=== PATIENT | female | born 1945 | race African-American/Black ===

== ENCOUNTER 2017-05-13 15:35 | Inpatient (IN) | payer OTHER ==
--- NOTE | 2017-05-13 16:11 | PDOC ---
History of Present Illness - General Chief Complaint: Lightheaded Stated Complaint: LIGHTHEADED Time Seen by Provider: 05/13/17 16:06 History Source: Patient, Family (Granddaughter) Exam Limitations: No Limitations - History of Present Illness Initial Comments: 05/13/17 16:08 Patient is a 71 year old female with history of poorly controlled DM2 and HTN presenting with cc of itching of feet and external vagina for three days. Patient states she was seen by her PCP today for this complaint but was unable to get a prescription he sent to her pharmacy so she came into the ED because the itching was unbearable. Endorses headache, blurry vision, sore throat, loss of appetite and increased urination that has been getting worse for the last three days since she since she forgot to take her Levemir. The puritis is limited to the bottoms of her feet and her external vagina, primarily around the labia majora. Denies fever, chills, shortness of breath, chest pain, abdominal pain, nausea, vomiting, diarrhea and constipation. Denies any rashes or bruises. Patient's granddaughter states that the patient was more sleepy than normal and appeared slightly confused. Patient has a recent history of falls that is being worked up by her PCP and was last seen by her court magistrate in August or September. Patient denies any falls in the last few days. Patient recently changed her PCP to Sarath Talley ([phone]) GI: Dr. Alvarez Past History - Past Medical History Allergies/Adverse Reactions: Allergies Allergy/AdvReac Type Severity Reaction Status Date / Time sulfamethoxazole Allergy Verified 05/13/17 15:37 [From Bactrim] trimethoprim [From Bactrim] Allergy Verified 05/13/17 15:37 Home Medications: Ambulatory Orders Fenofibrate Nanocrystallized [Fenofibrate] 145 mg PO DAILY 05/08/14 Folic Acid/Multivit-Min/Lutein [Centrum Silver Chewable Tablet] 1 tab PO DAILY 05/08/14 Glipizide 10 mg PO DAILY 05/08/14 Insulin (Levemir) [Levemir Flexpen -] 10 units SQ HS 05/08/14 Linagliptin [Tradjenta] 5 mg PO DAILY 05/08/14 Lipase/Protease/Amylase [John Figueroa 24,000 Units Capsule] 1 cap PO TID 05/08/14 Metoprolol Succinate [Toprol XL -] 25 mg PO DAILY 05/08/14 Omeprazole [Prilosec] 40 mg PO DAILY 05/08/14 Pregabalin [Lyrica -] 50 mg PO DAILY 05/08/14 Raloxifene HCl 60 mg PO DAILY 05/08/14 Rosuvastatin Calcium [Crestor] 5 mg PO HS 05/08/14 Quinapril HCl [Accupril -] 10 mg PO DAILY #30 tablet 05/10/14 Anemia: Yes Asthma: No Cancer: No Cardiac Disorders: Yes CVA: No COPD: No CHF: No Dementia: No Diabetes: Yes GI Disorders: Yes (pancreatitis) Disorders: No HTN: Yes Hypercholesterolemia: Yes Liver Disease: No Seizures: No Thyroid Disease: No - Surgical History Abdominal Surgery: No Appendectomy: No Cardiac Surgery: No Cholecystectomy: No Lung Surgery: No Neurologic Surgery: No Orthopedic Surgery: No - Immunization History Immunization Up to Date: Yes - Suicide/Smoking/Psychosocial Hx Smoking History: Current every day smoker Number of Cigarettes Smoked Daily: 5 Information on smoking cessation initiated: No 'Breaking Loose' booklet given: 05/08/14 Hx Alcohol Use: No Drug/Substance Use Hx: No Substance Use Type: None Hx Substance Use Treatment: No Review of Systems - Review of Systems Able to Perform ROS?: Yes Comments:: 05/13/17 18:59 GEN: Denies fever, chills, recent illness HEENTM: Endorses sore throat, changes in vision; Denies changes in hearing Respiratory: Endorses Cough; Denies Shortness of Breath, difficulty breathing Cardiac: Denies Chest Pain, Syncope ABD/GI: Denies Abdominal Pain, Nausea, Vomiting, Diarrhea, Constipation : Endorses increased frequency of urination, vaginal itching; Denies Dysuria, Burning on urination Musculoskeletal: Endorses itchy feet; Denies muscle or joint pain Integumentary: Denies diaphoresis, rashes, bruises Neurological: Endorses increased sleepiness, headache, dizziness; Denies weakness All Other Systems Reviewed and Negative Is the patient limited Divehi proficient: No *Physical Exam - Vital Signs Last Vital Signs Temp Pulse Resp BP Pulse Ox 98.3 F 94 H 20 198/99 99 05/13/17 15:38 05/13/17 15:38 05/13/17 15:38 05/13/17 15:38 05/13/17 15:38 - Physical Exam Comments: 05/13/17 19:06 GENERAL: Nourished, Appropriately dressed, AAOx3, NAD HEAD: NCAT EYES: PERRLA, EOMI, sclera anicteric, conjunctiva clear ENT: hearing grossly normal, nares patent, no congestion, dry oral mucosa NECK: Supple, Normal ROM, no LAD, JVD, or masses RESP: Speaking in full sentences, supraclavicular retractions and mild increased work of breathing, no respiratory distress, lungs CTAB HEART: RRR, normal S1-S2, no MRG ABDOMEN: Soft, NTND, no guarding, no rebound. EXTERNAL VAGINAL EXAM: grossly wnl, no erythema, no edema, no signs of infection EXTREMITIES: Normal inspection, Normal ROM, no edema NEUROLOGICAL: CN II-XII grossly intact. Normal speech, normal gait, no focal sensorimotor deficits SKIN: Warm, Dry, normal turgor, no rashes or lesions noted. ED Treatment Course - LABORATORY CBC & Chemistry Diagram: 05/15/17 06:00 05/15/17 06:00 Medical Decision Making - Medical Decision Making 05/13/17 18:06 71 year old female with history of poorly controlled diabetes and poor medical compliance presenting with vaginal itching, itchy feet and increased urination. Patient is neurologically intact and not in respiratory distress. She appears dehydrated with no complaints of abdominal pain, nausea or vomiting. ddx includes but is not limited to Hyperosmolar hyperglycemic state, DKA, vaginitis, neuropathy Start fluids Initial workup with CBC, CMP, UA Serum acetone Monitor and reassess CBC WBC 7.2 K/mm3 (4.0-10.0) 05/13/17 16:48 RBC 3.91 M/mm3 (3.60-5.2) 05/13/17 16:48 Hgb 11.1 GM/dL (10.7-15.3) 05/13/17 16:48 Hct 36.5 % (32.4-45.2) 05/13/17 16:48 MCV 93.4 fl (80-96) 05/13/17 16:48 MCH 28.5 pg (25.7-33.7) 05/13/17 16:48 MCHC 30.6 g/dl (32.0-36.0) L 05/13/17 16:48 RDW 13.9 % (11.6-15.6) 05/13/17 16:48 Plt Count 145 K/MM3 (134-434) D 05/13/17 16:48 MPV 11.6 fl (7.5-11.1) H D 05/13/17 16:48 Neutrophils % 76.2 % (42.8-82.8) D 05/13/17 16:48 Lymphocytes % 14.9 % (8-40) D 05/13/17 16:48 Monocytes % 8.2 % (3.8-10.2) 05/13/17 16:48 Eosinophils % 0.3 % (0-4.5) 05/13/17 16:48 Basophils % 0.4 % (0-2.0) 05/13/17 16:48 wnl CMP Sodium 116 mmol/L (136-145) L* D 05/13/17 16:48 Potassium 5.0 mmol/L (3.5-5.1) 05/13/17 16:48 Chloride 84 mmol/L (98-107) L D 05/13/17 16:48 Carbon Dioxide 18 mmol/L (21-32) L D 05/13/17 16:48 Anion Gap 14 (8-16) 05/13/17 16:48 BUN 34 mg/dL (7-18) H D 05/13/17 16:48 Creatinine 3.0 mg/dL (0.55-1.02) H D 05/13/17 16:48 Creat Clearance w eGFR 15.38 (>60) 05/13/17 16:48 Random Glucose 1097 mg/dL (74-106) H* 05/13/17 16:48 Calcium 7.8 mg/dL (8.5-10.1) L 05/13/17 16:48 Total Bilirubin 0.7 mg/dL (0.2-1.0) D 05/13/17 16:48 AST 9 U/L (15-37) L D 05/13/17 16:48 ALT 20 U/L (12-78) 05/13/17 16:48 Alkaline Phosphatase 295 U/L (45-117) H D 05/13/17 16:48 Total Protein 7.4 g/dl (6.4-8.2) 05/13/17 16:48 Albumin 3.8 g/dl (3.4-5.0) 05/13/17 16:48 Significant hyponatremia. (132 when corrected for hyperglycemia) Significant hyperglycemia with moderate reduction in bicarb, w/o anion gap, more consistent with HHS than DKA Elevation in BUN/CR consistent with a HHS 05/13/17 18:22 Urine Test Results Urine Color Straw 05/13/17 16:48 Urine Appearance Clear 05/13/17 16:48 Urine pH 6.0 (5.0-8.0) 05/13/17 16:48 Urine Protein Negative (NEGATIVE) 05/13/17 16:48 Urine Glucose (UA) 3+ (NEGATIVE) H 05/13/17 16:48 Urine Ketones Negative (NEGATIVE) 05/13/17 16:48 Urine Blood 1+ (NEGATIVE) H 05/13/17 16:48 Urine Nitrite Negative (NEGATIVE) 05/13/17 16:48 Urine Bilirubin Negative (NEGATIVE) 05/13/17 16:48 Ketone negative high glucose consistent with level of hyperglycemia not concernign for UTI 05/13/17 18:[address] Woodson who accepted admission and requesting ICU d/t levels of sodium and glucose Spoke with Dr. Salazar who agreed with admission to ICU, requested blood gas *DC/Admit/Observation/Transfer Diagnosis at time of Disposition: Dehydration with hyponatremia, Hyperglycemia, Hyperosmolality syndrome, TRUE ( acute kidney injury) - Discharge Dispostion Admit: Yes - Referrals
[2017-05-13] MEDS ORDERED: SODIUM CHLORIDE 0.9% 1000 ML INFUS.BAG IV ONE (16:33)
[2017-05-13 16:57] LABS: BASOPHIL 0.4 % (0-2.0); EOSINOPHIL 0.3 % (0-4.5); MCH 28.5 pg (25.7-33.7)
[2017-05-13 16:59] LABS: URINE APPEARANCE CLEAR; URINE BILIRUBIN NEGATIVE (NEGATIVE); URINE BLOOD 1+ (NEGATIVE); URINE COLOR STRAW; URINE GLUCOSE (UA) 3+ (NEGATIVE); URINE KETONE NEGATIVE (NEGATIVE); URINE NITRITE NEGATIVE (NEGATIVE); URINE PROTEIN NEGATIVE (NEGATIVE); URINE UROBILINOGEN NEGATIVE mg/dL (0.2-1.0)
[2017-05-13 17:09] LABS: MCHC 30.6 g/dl (32.0-36.0); MEAN CELL VOLUME 93.4 fl (80-96); MEAN PLT VOLUME 11.6 fl (7.5-11.1); NEUTROPHILS 76.2 % (42.8-82.8); PLATELET COUNT 145 K/MM3 (134-434); RDW 13.9 % (11.6-15.6); WHITE BLOOD COUNT 7.2 K/mm3 (4.0-10.0)
[2017-05-13 17:11] LABS: URINE BACTERIA FEW /hpf (NONE SEEN); URINE MUCUS RARE; URINE RBC 4 /hpf (0-3); URINE WBC 20 /hpf (3-5)
[2017-05-13 17:19] LABS: ALBUMIN 3.8 g/dl (3.4-5.0); ANION GAP 14 (8-16); CALCIUM 7.8 mg/dL (8.5-10.1); CO2 18 mmol/L (21-32); SGOT/AST 9 U/L (15-37); SGPT/ALT 20 U/L (12-78)
[2017-05-13 17:20] LABS: ALK PHOS 295 U/L (45-117); BILIRUBIN,TOTAL 0.7 mg/dL (0.2-1.0); TOT PROT 7.4 g/dl (6.4-8.2)
[2017-05-13 17:37] LABS: GLUCOSE,RANDOM 1097 mg/dL (74-106)
[2017-05-13] MEDS ORDERED: SODIUM CHLORIDE 1,000 ML IV STA ×2 (17:39→19:43)
[2017-05-13] MEDS ORDERED: ACETAMINOPHEN 325 MG TABLET (FP) PO ONE (18:31)
--- NOTE | 2017-05-13 18:38 | PDOC ---
Attending Attestation - Resident Resident Name: Freddy Loya - ED Attending Attestation I have performed the following: I have examined & evaluated the patient, The case was reviewed & discussed with the resident, I agree w/resident's findings & plan, Exceptions are as noted - HPI HPI: 05/13/17 20:22 71 yo female with IDDM has c/o itching feet,found to have glucose>1000 - Physicial Exam PE: 05/13/17 20:22 thin alert and conversant 71 yo female p/w c/o itchy feet and hyperglycemia.Denies vomiting,sob,fever or chills HEENT wnl lungs cta b/l cvs [id number] abd soft nontender extremities no edema neuro axox3,ambulatory - Medical Decision Making 05/13/17 18:37 admission for hyperosmolar hyperhlycemia/ICU/ Dr Woodson for service case tonight/Dr Marie Caraballo ICU 05/13/17 20:25 pt afmitted ti ICU,nonketotic hyperosmolar hyperglycemia
[2017-05-13] MEDS ORDERED: ACETAMINOPHEN 325 MG TABLET (FP) ONE (19:10)
--- NOTE | 2017-05-13 19:12 | PDOC ---
*Physical Exam - Vital Signs Last Vital Signs Temp Pulse Resp BP Pulse Ox 98.3 F 94 H 20 198/99 99 05/13/17 15:38 05/13/17 15:38 05/13/17 15:38 05/13/17 15:38 05/13/17 15:38 ED Treatment Course - LABORATORY CBC & Chemistry Diagram: 05/13/17 16:48 05/13/17 16:48 - ADDITIONAL ORDERS Additional order review: Laboratory Results 05/13/17 05/13/17 05/13/17 17:58 16:48 16:48 Sodium 116 L* D Potassium 5.0 Chloride 84 L D Carbon Dioxide 18 L D Anion Gap 14 BUN 34 H D Creatinine 3.0 H D Creat Clearance w eGFR 15.38 Random Glucose 1097 H* Calcium 7.8 L Total Bilirubin 0.7 D AST 9 L D ALT 20 Alkaline Phosphatase 295 H D Total Protein 7.4 Albumin 3.8 Urine Color Straw Urine Appearance Clear Urine pH 6.0 Urine Protein Negative Urine Glucose (UA) 3+ H Urine Ketones Negative Urine Blood 1+ H Urine Nitrite Negative Urine Bilirubin Negative Urine Urobilinogen Negative Urine RBC 4 Urine WBC 20 Ur Epithelial Cells Rare Urine Bacteria Few Urine Mucus Rare Acetone, Qual Positive,trace 05/13/17 16:48 RBC 3.91 MCV 93.4 MCHC 30.6 L RDW 13.9 MPV 11.6 H D Neutrophils % 76.2 D Lymphocytes % 14.9 D Monocytes % 8.2 Eosinophils % 0.3 Basophils % 0.4 - Medications Given in the ED: ED Medications Discontinued Medications Generic Name Dose Route Start Last Admin Trade Name Freq PRN Reason Stop Dose Admin Sodium Chloride 1,000 mls @ 1,000 mls/hr 05/13/17 17:39 05/13/17 17:57 Normal Saline - IV 05/13/17 18:38 1,000 mls/hr ASDIR STA Administration Sodium Chloride 500 ml 05/13/17 16:33 05/13/17 16:33 Normal Saline - IV 05/13/17 16:34 500 ml NOW ONE Administration Progress Note - Progress Note Progress Note: Patient presents with HHS admitted to ICU. 1.5 *DC/Admit/Observation/Transfer Diagnosis at time of Disposition: Dehydration with hyponatremia, Hyperglycemia, Hyperosmolality syndrome, TRUE ( acute kidney injury) - Referrals Referrals: Sarath Winkler PA [Primary Care Provider] - - Patient Instructions - Post Discharge Activity
[2017-05-13 19:39] LABS: VENOUS BLOOD GAS HCO3 16.5 meq/L (19-25)
[2017-05-13 19:40] LABS: VENOUS PH 7.28 (7.32-7.42)
[2017-05-13] MEDS ORDERED: diphenhydrAMINE HCL 25 MG CAPSULE (FP) PO ONE ×3 (19:42→22:16)
[2017-05-13 20:33] LABS: ANION GAP 13 (8-16); CALCIUM 8.2 mg/dL (8.5-10.1); CO2 16 mmol/L (21-32); CREATININE 2.5 mg/dL (0.55-1.02)
[2017-05-13 20:45] LABS: GLUCOSE,RANDOM 862 mg/dL (74-106)
--- NOTE | 2017-05-13 20:50 | HP ---
Admitting History and Physical - Admission History of Present Illness: 71 year old female with history of DM2 and HTN presenting with cc of itching of feet and external vagina for three days. Patient states she was seen by her PCP today for this complaint who sent a prescription to her pharmacy but was unable to get the prescription and came into the ED because the itching was unberable. Endorses headache, blurry vision, sore throat, loss of appetite and increased urination for the last three days. Denies fever, chills, shortness of breath, chest pain, abdominal pain, nausea, vomiting, diarrhea and constipation. - Past Medical History Cardiovascular: Yes: HTN, Hyperlipdemia. No: AFIB, Aneurysm, Aortic Insufficiency, Aortic Stenosis, CAD, CHF, Deep Vein Thrombosis, AR, Mitral Insufficiency, Mitral Stenosis, Murmur, Pulmonary Hypertension, Other Endocrine: Yes: Diabetes Mellitus. No: Story's Disease, [place]'s Disease, Diabetes Insipidus, Hyperparathyroidism, Hyperthyroidism, Hypothyroidism, Osteopenia, SIADH, Other - Smoking History Smoking history: Current every day smoker Aproximately how many cigarettes per day: 5 - Alcohol/Substance Use Hx Alcohol Use: No History of Substance Use: reports: None - Social History ADL: Independent Occupation: Retired History of Recent Travel: Yes ([place] ) Home Medications - Allergies Allergies/Adverse Reactions: Allergies Allergy/AdvReac Type Severity Reaction Status Date / Time sulfamethoxazole Allergy Verified 05/13/17 15:37 [From Bactrim] trimethoprim [From Bactrim] Allergy Verified 05/13/17 15:37 - Home Medications Home Medications: Ambulatory Orders Fenofibrate Nanocrystallized [Fenofibrate] 145 mg PO DAILY 05/08/14 Folic Acid/Multivit-Min/Lutein [Centrum Silver Chewable Tablet] 1 tab PO DAILY 05/08/14 Glipizide 10 mg PO DAILY 05/08/14 Insulin (Levemir) [Levemir Flexpen -] 10 units SQ HS 05/08/14 Linagliptin [Tradjenta] 5 mg PO DAILY 05/08/14 Lipase/Protease/Amylase [Creon Dr 24,000 Units Capsule] 1 cap PO TID 05/08/14 Metoprolol Succinate [Toprol XL -] 25 mg PO DAILY 05/08/14 Omeprazole [Prilosec] 40 mg PO DAILY 05/08/14 Pregabalin [Lyrica -] 50 mg PO DAILY 05/08/14 Raloxifene HCl 60 mg PO DAILY 05/08/14 Rosuvastatin Calcium [Crestor] 5 mg PO HS 05/08/14 Quinapril HCl [Accupril -] 10 mg PO DAILY #30 tablet 05/10/14 Family Disease History - Family Disease History Family Disease History: Other: Father (unknown ), Mother (vaginal cancer ) Review of Systems - Review of Systems Cardiovascular: denies: Chest Pain Respiratory: denies: SOB Gastrointestinal: denies: Abdominal Pain, Diarrhea, Vomiting Genitourinary: reports: Burning, Frequency Integumentary: reports: Pruritis Neurological: reports: Weakness Physical Examination Vital Signs: Vital Signs Temperature 98.3 F 05/13/17 15:38 Pulse Rate 94 H 05/13/17 15:38 Respiratory Rate 20 05/13/17 15:38 Blood Pressure 198/99 05/13/17 15:38 O2 Sat by Pulse Oximetry (%) 99 05/13/17 15:38 Cardiovascular: Yes: Regular Rate and Rhythm Respiratory: Yes: Regular, CTA Bilaterally Gastrointestinal: Yes: Normal Bowel Sounds, Soft. No: Tenderness Edema: No Neurological: Yes: Alert, Oriented Labs: CBC, BMP 05/13/17 20:06 Problem List - Problems (1) Diabetes mellitus Assessment/Plan: IVF INSULIN ENDO Code(s): E11.9 - TYPE 2 DIABETES MELLITUS WITHOUT COMPLICATIONS (2) HTN (hypertension) Assessment/Plan: MONITOR ON MEDS Code(s): I10 - ESSENTIAL (PRIMARY) HYPERTENSION (3) Hyperosmolarity due to secondary diabetes Assessment/Plan: ABOVE Code(s): E13.00 - OTH DIAB W HYPROSM W/O NONKET HYPRGLY-HYPROS COMA ([facility])
[2017-05-13 22:05] LABS: URINE LEUK ESTERASE 1+ (NEGATIVE)
[2017-05-13] MEDS ORDERED: INSULIN REGULAR HUMAN 100 UNITS/ML *VIAL ONE (22:10)
[2017-05-13] MEDS ORDERED: INSULIN REGULAR 100 UNITS in SODIUM CHLORIDE 99 ML IVPB SCH ×2 (22:15→23:43)
[2017-05-13] MEDS ORDERED: SODIUM CHLORIDE 1,000 ML IV SCH (22:30)
--- NOTE | 2017-05-13 22:37 | CONSULT ---
Consultation: REQUESTING PROVIDER: CONSULT REQUEST: We have been asked to medically evaluate this patient for (HSS management in ccu). HISTORY OF PRESENT ILLNESS: This is a 71 year old female with PMH of IDDM II (baseline AM sugars =120), HTN , and pancreatic insufficiency, who presented to the ED due to confusion and diffuse pruritus, was found to be hyperglycemic BG >1000; resuscitated with 2.5 L NS and xferred to CCU for further management. Patient states that she has a new BGM machine. Last read of AM glucose 120 was last friday, followed by a week of reads "BGM high". Patient did not report this reading to PCP. She denies recent change in diet, f/c, rhinorrhea, sore throat, n/v, cp, palpitations, loc. She reports polyuria x 1 w. patient states that she has had DM x 9 yrs and has been hospitalized for hyperglycemia at least 3 times in the past. REVIEW OF SYSTEMS: CONSTITUTIONAL: Absent: fever, chills, loss of appetite HEENT: Absent: rhinorrhea, nasal congestion, throat pain CARDIOVASCULAR: Absent: chest pain, syncope, palpitations, irregular heart rate, lightheadedness , peripheral edema RESPIRATORY: Absent: cough, shortness of breath, dyspnea with exertion GASTROINTESTINAL: Absent: abdominal pain, abdominal distension, nausea, vomiting, diarrhea, constipation GENITOURINARY: Absent: dysuria, flank pain MUSCULOSKELETAL: Absent: myalgia, arthralgia SKIN: Absent: rash, itching, pallor HEMATOLOGIC/IMMUNOLOGIC: Absent: easy bleeding, easy bruising ENDOCRINE: Absent: unexplained weight gain, unexplained weight loss, heat intolerance, cold intolerance NEUROLOGIC: Absent: headache, focal weakness or paresthesias PSYCHIATRIC: Absent: anxiety, depression PHYSICAL EXAMINATION Vital Signs - 24 hr 05/13/17 21:54 Temperature 98.4 F Pulse Rate [ 92 H Left Radial] Respiratory 18 Rate Blood Pressure 168/84 [Right Arm] O2 Sat by Pulse 98 Oximetry (%) GENERAL: Awake, alert, and fully oriented, in no acute distress. HEAD: Normal with no signs of trauma. EYES: Pupils equal, round and reactive to light, extraocular movements intact, sclera anicteric, conjunctiva clear. No lid lag. EARS, NOSE, THROAT: somewhat dry mucous membranes. NECK: supple without JVD LUNGS: Breath sounds equal, clear to auscultation bilaterally HEART: Regular rate and rhythm, normal S1 and S2 ABDOMEN: Soft, nontender, not distended, normoactive bowel sounds MUSCULOSKELETAL: No CVA tenderness. UPPER EXTREMITIES: 2+ pulses, warm, well-perfused. No peripheral edema. LOWER EXTREMITIES: 2+ pulses, warm, well-perfused. No calf tenderness. No peripheral edema. NEUROLOGICAL: Cranial nerves II-XII grossly intact. Normal speech. PSYCHIATRIC: Cooperative. Good eye contact. Appropriate mood and affect. SKIN: Warm, dry Laboratory Results - last 24 hr 05/13/17 05/13/17 19:20 20:06 VBG pH 7.28 L POC VBG pCO2 36.6 L POC VBG pO2 22.1 L Mixed VBG HCO3 16.5 L Sodium 126 L Potassium 5.0 Chloride 97 L D Carbon Dioxide 16 L Anion Gap 13 BUN 29 H Creatinine 2.5 H Random Glucose 862 H* D Calcium 8.2 L Active Medications Generic Name Dose Route Start Last Admin Trade Name Freq PRN Reason Stop Dose Admin Diphenhydramine HCl 25 mg 05/14/17 02:00 Benadryl - PO 05/14/17 02:01 ONCE ONE Insulin Human Regular 100 100 mls @ 4.53 mls/hr 05/13/17 22:15 05/13/17 22:30 units/ Sodium Chloride IVPB 4.53 mls/hr TITR MITCH Administration Protocol 0.1 UNITS/KG/HR Potassium Chloride/Sodium Chloride 1,000 mls @ 125 mls/hr 05/13/17 22:45 Ns+20 Meq Kcl - IV ASDIR MITCH ASSESSMENT/PLAN: HISTORY OF PRESENT ILLNESS: This is a 71 year old female with PMH of IDDM II (baseline AM sugars =120), HTN , and pancreatic insufficiency, who presented to the ED due to confusion and diffuse pruritus, was found to be hyperglycemic BG >1000; resuscitated with 2.5 L NS and xferred to CCU for further management. Neuro *Lethargy in setting of HSS resolved -aaox3 Pulm -stable CV *HTN -normotensive at this time, restart home meds when euvolemic -stable -replete K per protocol Endocrine *HSS hyperglycemia -BG >1000; Osmolallity 305 gap 14 -K 5 -resuscitated with 2.5 L NS; continue NS@ 125 20 KCL -monitor bmp -10 U insulin bolus; insulin gtt @0.1u/kg/hr -bgm q 1 h -endocrine consult -a1c FEN NS @ 125 20 Kcl monitor k, na npo Dispo: We will continue to follow the patient. Thank you for this consultative opportunity. Visit type - Emergency Visit Emergency Visit: Yes ED Registration Date: 05/13/17 Care time: The patient presented to the Emergency Department on the above date and was hospitalized for further evaluation of their emergent condition. - New Patient This patient is new to me today: Yes Date on this admission: 05/13/17 - Critical Care Critical Care patient: Yes Total Critical Care Time (in minutes): 35 Critical Care Statement: The care of this patient involved high complexity decision making to prevent further life threatening deterioration of the patient 's condition and/or to evaluate & treat vital organ system(s) failure or risk of failure.
[2017-05-13] MEDS ORDERED: FLU VACCINE QUAD 60 MCG/0.5 ML (MDV 17-18) IM ONE ×2 (22:52→23:15)
[2017-05-13] MEDS: SODIUM CHLORIDE 0.9%/KCL 1,000 ML IV SCH (22:54)
--- NOTE | 2017-05-13 23:17 | CONSULT ---
Consult Consult Specialty:: Pulm/CCM Reason for Consultation:: hyperglycemia, HHS - History of Present Illness Chief Complaint: itching History of Present Illness: This is a 71 yo HTN, IDDM who presented to ED for incessant itching and malaise found to have blood sugar 1097. Per patient she take levemir 10 units daily, no sliding scale, but has not been taking her insulin regularly over the last several weeks because her AM sugars had been in the 80s until approximately 1 week prior to admission he glucose was reading high. She recently changed MDs and has not been for follow up for months. At that time she noted increased thirst and urinary frequency. She also had intermittent headaches and itching: feet and external vagina. On day of admission she noted some MCKEON and unsteady gate c/b continued itching. In ED labs notable for Na: 116 (corrected: 138), BS : 1100, SCr: 3.0. U/A negative for ketones. Patient given NS x 2.5 liters and transferred to ICU. In ICU insulin drip started at 0.1 units/kg/hr. IV fluids given w/ potassium repletion. - History Source History Provided By: Patient, Medical Record Limitations to Obtaining History: No Limitations - Past Medical History Cardio/Vascular: Yes: HTN, Hyperlipdemia. No: AFIB, Aneurysm, Aortic Insufficiency, Aortic Stenosis, CAD, CHF, Deep Vein Thrombosis, [place], Mitral Insufficiency, Mitral Stenosis, Murmur, Pulmonary Hypertension, Other ...: No Endocrine: Yes: Diabetes Mellitus. No: [place]'s Disease, Ab[place]'s Disease, Diabetes Insipidus, Hyperparathyroidism, Hyperthyroidism, Hypothyroidism, Osteopenia, SIADH, Other - Alcohol/Substance Use Hx Alcohol Use: No History of Substance Use: reports: None - Smoking History Smoking history: Current every day smoker Aproximately how many cigarettes per day: 5 - Social History ADL: Independent Occupation: Retired History of Recent Travel: Yes ([place] ) Home Medications - Allergies Allergies/Adverse Reactions: Allergies Allergy/AdvReac Type Severity Reaction Status Date / Time sulfamethoxazole Allergy Verified 05/13/17 15:37 [From Bactrim] trimethoprim [From Bactrim] Allergy Verified 05/13/17 15:37 - Home Medications Home Medications: Ambulatory Orders Fenofibrate Nanocrystallized [Fenofibrate] 145 mg PO DAILY 05/08/14 Folic Acid/Multivit-Min/Lutein [Centrum Silver Chewable Tablet] 1 tab PO DAILY 05/08/14 Glipizide 10 mg PO DAILY 05/08/14 Insulin (Levemir) [Levemir Flexpen -] 10 units SQ HS 05/08/14 Linagliptin [Tradjenta] 5 mg PO DAILY 05/08/14 Lipase/Protease/Amylase [Creon Dr 24,000 Units Capsule] 1 cap PO TID 05/08/14 Metoprolol Succinate [Toprol XL -] 25 mg PO DAILY 05/08/14 Omeprazole [Prilosec] 40 mg PO DAILY 05/08/14 Pregabalin [Lyrica -] 50 mg PO DAILY 05/08/14 Raloxifene HCl 60 mg PO DAILY 05/08/14 Rosuvastatin Calcium [Crestor] 5 mg PO HS 05/08/14 Quinapril HCl [Accupril -] 10 mg PO DAILY #30 tablet 05/10/14 Family Disease History - Family Disease History Family Disease History: Other: Father (unknown ), Mother (vaginal cancer ) Review of Systems - Review of Systems Constitutional: reports: Lethargy, Malaise Genitourinary: reports: Frequency Neurological: reports: Headache, Unsteady Gait Endocrine: reports: Increased Thirst Physical Exam Vital Signs: Vital Signs Temperature 98.9 F 05/13/17 22:30 Pulse Rate 87 05/13/17 22:30 Respiratory Rate 14 05/13/17 22:30 Blood Pressure 144/85 05/13/17 22:30 O2 Sat by Pulse Oximetry (%) 99 05/13/17 22:30 Current Medications Diphenhydramine HCl (Benadryl -) 25 mg PO ONCE ONE Stop: 05/14/17 02:01 Insulin Human Regular 100 (units/ Sodium Chloride) 100 mls @ 4.53 mls/hr IVPB TITR MITCH; 0.1 UNITS/KG/HR PRN Reason: Protocol Last Admin: 05/13/17 22:30 Dose: 4.53 mls/hr Potassium Chloride/Sodium Chloride (Ns+20 Meq Kcl -) 1,000 mls @ 125 mls/hr IV ASDIR MITCH Last Admin: 05/13/17 22:54 Dose: 125 mls/hr Constitutional: Yes: Well Nourished, Calm Eyes: Yes: EOM Intact HENT: Yes: Normocephalic Neck: Yes: Trachea Midline Cardiovascular: Yes: Regular Rate and Rhythm Respiratory: Yes: CTA Bilaterally Gastrointestinal: Yes: Normal Bowel Sounds, Soft Edema: No Psychiatric: Yes: Alert, Oriented Labs: CBCD WBC 7.2 K/mm3 (4.0-10.0) 05/13/17 16:48 RBC 3.91 M/mm3 (3.60-5.2) 05/13/17 16:48 Hgb 11.1 GM/dL (10.7-15.3) 05/13/17 16:48 Hct 36.5 % (32.4-45.2) 05/13/17 16:48 MCV 93.4 fl (80-96) 05/13/17 16:48 MCHC 30.6 g/dl (32.0-36.0) L 05/13/17 16:48 RDW 13.9 % (11.6-15.6) 05/13/17 16:48 Plt Count 145 K/MM3 (134-434) D 05/13/17 16:48 MPV 11.6 fl (7.5-11.1) H D 05/13/17 16:48 CMP Sodium 126 mmol/L (136-145) L 05/13/17 20:06 Potassium 5.0 mmol/L (3.5-5.1) 05/13/17 20:06 Chloride 97 mmol/L (98-107) L D 05/13/17 20:06 Carbon Dioxide 16 mmol/L (21-32) L 05/13/17 20:06 Anion Gap 13 (8-16) 05/13/17 20:06 BUN 29 mg/dL (7-18) H 05/13/17 20:06 Creatinine 2.5 mg/dL (0.55-1.02) H 05/13/17 20:06 Creat Clearance w eGFR 15.38 (>60) 05/13/17 16:48 Random Glucose 862 mg/dL (74-106) H* D 05/13/17 20:06 Calcium 8.2 mg/dL (8.5-10.1) L 05/13/17 20:06 Total Bilirubin 0.7 mg/dL (0.2-1.0) D 05/13/17 16:48 AST 9 U/L (15-37) L D 05/13/17 16:48 ALT 20 U/L (12-78) 05/13/17 16:48 Alkaline Phosphatase 295 U/L (45-117) H D 05/13/17 16:48 Total Protein 7.4 g/dl (6.4-8.2) 05/13/17 16:48 Albumin 3.8 g/dl (3.4-5.0) 05/13/17 16:48 Imaging - Results Chest X-ray: Report Reviewed, Image Reviewed Problem List - Problems (1) TRUE (acute kidney injury) Code(s): N17.9 - ACUTE KIDNEY FAILURE, UNSPECIFIED (2) Hyperglycemia Code(s): R73.9 - HYPERGLYCEMIA, UNSPECIFIED (3) Hyperosmolality syndrome Code(s): E87.0 - HYPEROSMOLALITY AND HYPERNATREMIA (4) Diabetes mellitus Code(s): E11.9 - TYPE 2 DIABETES MELLITUS WITHOUT COMPLICATIONS (5) HTN (hypertension) Code(s): I10 - ESSENTIAL (PRIMARY) HYPERTENSION Assessment/Plan 71 yo woman IDDM p/w hyperosmolar hyperglycemic syndrome r/t medication noncompliance c/b TRUE 2/2 dehydration -Insulin drip 0.1units/kg/hr --if BG doesnt fall by 50-70 mg/dl in first hr double insulin infusion until BG drops by 50-70 mg/dl --goal B-200mg/dl until AG closes --if BG fall <70 mg/dl hold insulin x15m and bolus D50 IVP --restart insulin at half prior dose and notify prodiver -IV fluids 100-250ml/hr --corrected sodium >140 use d5 1/2NS --corrected sodium <140 use NS --add D5 once BG reaches 250 mg/dl -potassium replacement --K> 5.5mEq/l no replacement --K 4-5 mEq/l add KCl 20 mEq to each liter of IVF --K 3.5-3.9 mEq/l add KCL 20-40 mEq to each liter of IVF --K 3.1-3.4 mEq/l add KCL 40-60 mEq to each liter of IVF --K <3 mEq/l add KCL 40-80 mEq to each liter of IVF (call provider) -BMP q4hrs -transition to insulin sq in AM once BS improves -Endocrine consult for insulin management and education Jonathan ACNP Pulm/CCM CCT: 35m
[2017-05-13] MEDS ORDERED: INSULIN REGULAR HUMAN 100 UNITS/ML *VIAL IVPUSH ONE (23:42)
[2017-05-14 00:13] LABS: ANION GAP 12 (8-16); CALCIUM 7.7 mg/dL (8.5-10.1); CO2 15 mmol/L (21-32); CREATININE 2.4 mg/dL (0.55-1.02); MAGNESIUM 1.8 mg/dL (1.8-2.4); PHOSPHOROUS 1.3 mg/dL (2.5-4.9)
[2017-05-14 00:21] LABS: GLUCOSE,RANDOM 551 mg/dL (74-106)
[2017-05-14] MEDS ORDERED: diphenhydrAMINE HCL 25 MG CAPSULE (FP) PO ONE (02:00)
[2017-05-14 06:18] LABS: MCH 28.8 pg (25.7-33.7); MCHC 33.2 g/dl (32.0-36.0); MEAN CELL VOLUME 86.9 fl (80-96); MEAN PLT VOLUME 10.5 fl (7.5-11.1); PLATELET COUNT 134 K/MM3 (134-434); WHITE BLOOD COUNT 9.7 K/mm3 (4.0-10.0)
[2017-05-14 06:54] LABS: ALK PHOS 209 U/L (45-117); ANION GAP 11 (8-16); BILIRUBIN,TOTAL 0.5 mg/dL (0.2-1.0); CALCIUM 8.5 mg/dL (8.5-10.1); CO2 17 mmol/L (21-32); GLUCOSE,RANDOM 170 mg/dL (74-106); MAGNESIUM 1.9 mg/dL (1.8-2.4); SGOT/AST 9 U/L (15-37); SGPT/ALT 16 U/L (12-78); TOT PROT 5.6 g/dl (6.4-8.2)
[2017-05-14 07:01] VITALS: BMI 20.1
[2017-05-14] MEDS: INSULIN SLIDING SCALE (NOVOLOG) 1 VIAL SQ SCH ×4 (08:25→21:37)
[2017-05-14] MEDS ORDERED: INSULIN (NOVOLOG) ASPART 100 UNITS/ML 10ML VIAL ONE ×2 (08:41→20:05)
--- NOTE | 2017-05-14 09:43 | PN ---
Progress Note, Physician History of Present Illness: FEELS BETTER - Current Medication List Current Medications: Active Medications Heparin Sodium (Porcine) (Heparin -) 5,000 unit SQ BID MITCH Potassium Chloride/Sodium Chloride (Ns+20 Meq Kcl -) 1,000 mls @ 125 mls/hr IV ASDIR [facility] Last Admin: 05/13/17 22:54 Dose: 125 mls/hr Insulin Aspart (Novolog Vial Sliding Scale -) 1 vial SQ ACHS [facility] PRN Reason: Protocol Last Admin: 05/14/17 08:25 Dose: 8 units Metoprolol Succinate (Toprol Xl -) 25 mg PO DAILY MITCH Non-Formulary Medication (Fenofibrate Nanocrystallized [Fenofibrate]) 145 mg PO DAILY MITCH Non-Formulary Medication (Insulin (Levemir) [Levemir Flexpen -]) 20 units SQ HS MITCH Non-Formulary Medication (Linagliptin [Tradjenta]) 5 mg PO DAILY MITCH Pregabalin (Lyrica -) 50 mg PO DAILY MITCH Quinapril HCl (Accupril -) 10 mg PO DAILY MITCH Rosuvastatin Calcium (Crestor -) 5 mg PO HS [facility] - Objective Vital Signs: Vital Signs Temperature 98.9 F 05/14/17 06:59 Pulse Rate 90 05/14/17 08:00 Respiratory Rate 15 05/14/17 09:00 Blood Pressure 128/77 05/14/17 08:00 O2 Sat by Pulse Oximetry (%) 99 05/14/17 09:00 Cardiovascular: Yes: Regular Rate and Rhythm Respiratory: Yes: Regular, CTA Bilaterally Gastrointestinal: Yes: Normal Bowel Sounds, Soft Labs: CBC, BMP 05/14/17 05:00 05/14/17 05:00 Problem List - Problems (1) DKA (diabetic ketoacidoses) Assessment/Plan: OFF INSULIN DRIP IVF START LEVEMIR FOLLOW BGM Code(s): E13.10 - OTH DIABETES MELLITUS WITH KETOACIDOSIS WITHOUT COMA (2) Diabetes mellitus Assessment/Plan: IVF INSULIN--START LEVEMIR ENDO Code(s): E11.9 - TYPE 2 DIABETES MELLITUS WITHOUT COMPLICATIONS (3) HTN (hypertension) Assessment/Plan: MONITOR ON MEDS Code(s): I10 - ESSENTIAL (PRIMARY) HYPERTENSION (4) Hyperosmolarity due to secondary diabetes Assessment/Plan: ABOVE Code(s): E13.00 - OTH DIAB W HYPROSM W/O NONKET HYPRGLY-HYPROS COMA ([facility])
[2017-05-14] MEDS ORDERED: PATIENT'S OWN MEDICATION (NON-FORMULARY) (Linagliptin [Tradjenta] 5 MG) PO SCH (10:00)
[2017-05-14] MEDS ORDERED: PATIENT'S OWN MEDICATION (NON-FORMULARY) (Raloxifene Hcl [Raloxifene Hcl] 60 MG) PO SCH (10:00)
[2017-05-14] MEDS ORDERED: METOPROLOL SUCCINATE 25 MG TAB.SR.24H (FP) PO SCH (10:00)
[2017-05-14] MEDS ORDERED: HEPARIN NA (PORCINE) 5,000 UNITS/ML 1ML VIAL SQ SCH (10:00)
[2017-05-14] MEDS ORDERED: PREGABALIN 50 MG CAPSULE PO SCH ×2 (10:00→11:15)
[2017-05-14 10:22] LABS: CHOLESTEROL 88 mg/dL (50-200)
[2017-05-14 10:29] LABS: THYROID STIMULATING HORMONE 0.99 uIU/ml (0.358-3.74)
[2017-05-14] MEDS ORDERED: INSULIN DETEMIR 100 UNITS/ML MDV SQ ONE ×2 (10:41→12:00)
[2017-05-14] MEDS ORDERED: QUINAPRIL HCL 10 MG TABLET (FP) PO SCH (11:15)
[2017-05-14] MEDS: SODIUM CHLORIDE 0.9%/KCL 1,000 ML IV SCH (11:30)
[2017-05-14] MEDS ORDERED: SODIUM CHLORIDE 0.45% 1,000 ML IV SCH (11:45)
[2017-05-14] MEDS ORDERED: FENOFIBRIC ACID 135 MG CAP PO SCH (12:00)
--- NOTE | 2017-05-14 12:00 | EKG ---
Test Reason : Blood Pressure : / mmHG Vent. Rate : 095 BPM Atrial Rate : 095 BPM P-R Int : 140 ms QRS Dur : 074 ms QT Int : 358 ms P-R-T Axes : 058 -17 043 degrees QTc Int : 449 ms NORMAL SINUS RHYTHM NORMAL ECG WHEN COMPARED WITH ECG OF 20-FEB-2016 07:39, NO SIGNIFICANT CHANGE WAS FOUND Confirmed by TEAGAN POLANCO MD ([id number]) on 05/14/2017 11:59:41 AM Referred By: Confirmed By:TEAGAN POLANCO MD
--- NOTE | 2017-05-14 12:47 | PN ---
Teaching Attending Note Name of Resident: Tashia Marcum ATTENDING PHYSICIAN STATEMENT I saw and evaluated the patient. I reviewed the resident's note and discussed the case with the resident. I agree with the resident's findings and plan as documented. SUBJECTIVE: Pt seen and examined in the ICU. Feels better today. Blood glucose better controlled. No fevers recorded. Off insulin gtt. OBJECTIVE: Last Vital Signs Temp Pulse Resp BP Pulse Ox 99 F 85 15 158/80 98 05/14/17 10:00 05/14/17 10:00 05/14/17 10:00 05/14/17 10:00 05/14/17 10:00 Intake & Output 05/11/17 05/12/17 05/13/17 05/14/17 23:59 23:59 23:59 23:59 Intake Total 1136 Output Total 400 Balance 736 Weight 103 lb 9.876 oz 103 lb 3.2 oz Gen: NAD at rest HEENT: dry mucous membranes Heart: RRR Lung: decreased breath sounds at the bases Abd: soft, nontender Ext: no edema CBC, BMP 05/14/17 05:00 05/14/17 05:00 Active Medications Fenofibric Acid (Trilipix -) 135 mg PO DAILY [facility] Heparin Sodium (Porcine) (Heparin -) 5,000 unit SQ BID [facility] Last Admin: 05/14/17 11:17 Dose: 5,000 unit Sodium Chloride (1/2 Normal Saline) 1,000 mls @ 125 mls/hr IV ASDIR [facility] Last Admin: 05/14/17 11:54 Dose: 125 mls/hr Insulin Aspart (Novolog Vial Sliding Scale -) 1 vial SQ ACHS [facility] PRN Reason: Protocol Last Admin: 05/14/17 11:00 Dose: 4 units Insulin Detemir (Levemir Vial) 15 units SQ HS [facility] Insulin Detemir (Levemir Vial) 20 units SQ AM [facility] Metoprolol Succinate (Toprol Xl -) 25 mg PO DAILY [facility] Last Admin: 05/14/17 11:16 Dose: 25 mg Non-Formulary Medication (Linagliptin [Tradjenta]) 5 mg PO DAILY [facility] Pregabalin (Lyrica -) 50 mg PO DAILY [facility] Last Admin: 05/14/17 11:25 Dose: Not Given Quinapril HCl (Accupril -) 10 mg PO DAILY [facility] Last Admin: 05/14/17 11:31 Dose: 10 mg Rosuvastatin Calcium (Crestor -) 5 mg PO HS [facility] ASSESSMENT AND PLAN: Hyperglycemic Hyperosmolar Non Ketotic State Acute on Chronic Renal Failure - glucose control - continue long acting insulin - IVF - monitor urine output, creatinine - hold LILA-I until renal function stabilizes - advance diet - DVT prophylaxis - can monitor on floor
[2017-05-14] MEDS ORDERED: PT OWN MED DRAWER 7, Y5N ONE (14:48)
--- NOTE | 2017-05-14 15:12 | PN ---
Physical Exam: SUBJECTIVE: Patient seen and examined by me at bedside. Patient was found to have glucose level >1000 and was placed on insulin drip and fluids. Insulin dripped discontinued and patient offers no complaints today. Otherwise, patient denies fever, chills, nausea, vomiting, abdominal pain, chest pain, shortness of breath, headaches, loss of consciousness. OBJECTIVE: Vital Signs Period Temp Pulse Resp BP Sys/[place] Pulse Ox Last 24 Hr 98.2 F-99 F 85-94 14-22 105-168/67-85 98-99 GENERAL: The patient is awake, alert, and fully oriented, in no acute distress. HEAD: Normal with no signs of trauma. EYES:Sclera anicteric, conjunctiva clear. ENT:Oropharynx clear without exudates, moist mucous membranes. NECK: Trachea midline, full range of motion, supple. LUNGS: Breath sounds equal, clear to auscultation bilaterally, no wheezes, no crackles, no accessory muscle use. HEART: Regular rate and rhythm, normal S1 and S2 without murmur, rub or gallop. ABDOMEN: Soft, nontender, nondistended, normoactive bowel sounds, no guarding, no rebound EXTREMITIES: No peripheral edema . NEUROLOGICAL: Normal speech . No focal deficits Laboratory Results - last 24 hr 05/13/17 05/13/17 05/13/17 19:20 20:06 23:05 WBC RBC Hgb Hct MCV MCH MCHC RDW Plt Count MPV VBG pH 7.28 L POC VBG pCO2 36.6 L POC VBG pO2 22.1 L Mixed VBG HCO3 16.5 L Sodium 126 L 132 L Potassium 5.0 3.7 D Chloride 97 L D 105 Carbon Dioxide 16 L 15 L Anion Gap 13 12 BUN 29 H 27 H Creatinine 2.5 H 2.4 H Creat Clearance w eGFR Random Glucose 862 H* D 551 H* D Hemoglobin A1c % Calcium 8.2 L 7.7 L Phosphorus 1.3 L D Magnesium 1.8 Total Bilirubin AST ALT Alkaline Phosphatase Total Protein Albumin Triglycerides Cholesterol Total LDL Cholesterol HDL Cholesterol TSH 05/14/17 05/14/17 05/14/17 05:00 05:00 05:00 WBC 9.7 D RBC 3.37 L Hgb 9.7 L D Hct 29.3 L D MCV 86.9 MCH 28.8 MCHC 33.2 RDW 13.0 Plt Count 134 MPV 10.5 VBG pH POC VBG pCO2 POC VBG pO2 Mixed VBG HCO3 Sodium 142 Potassium 4.7 D Chloride 114 H Carbon Dioxide 17 L Anion Gap 11 BUN 22 H Creatinine 2.0 H Creat Clearance w eGFR 24.56 Random Glucose 170 H D Hemoglobin A1c % 11.6 H D Calcium 8.5 Phosphorus 2.0 L D Magnesium 1.9 Total Bilirubin 0.5 D AST 9 L ALT 16 Alkaline Phosphatase 209 H D Total Protein 5.6 L D Albumin 3.0 L D Triglycerides 235 H D Cholesterol 88 D Total LDL Cholesterol 38 HDL Cholesterol 23 L D TSH 0.99 D 05/14/17 09:45 WBC RBC Hgb Hct MCV MCH MCHC RDW Plt Count MPV VBG pH POC VBG pCO2 POC VBG pO2 Mixed VBG HCO3 Sodium Potassium Chloride Carbon Dioxide Anion Gap BUN Creatinine Creat Clearance w eGFR Random Glucose Hemoglobin A1c % Calcium Phosphorus Magnesium Total Bilirubin AST ALT Alkaline Phosphatase Total Protein Albumin Triglycerides Cancelled Cholesterol Cancelled Total LDL Cholesterol Cancelled HDL Cholesterol Cancelled TSH Cancelled Active Medications Generic Name Dose Route Start Last Admin Trade Name Freq PRN Reason Stop Dose Admin Fenofibric Acid 135 mg 05/14/17 12:00 05/14/17 14:55 Trilipix - PO 135 mg DAILY MITCH Administration Heparin Sodium (Porcine) 5,000 unit 05/14/17 10:00 05/14/17 11:17 Heparin - SQ 5,000 unit BID MITCH Administration Sodium Chloride 1,000 mls @ 125 mls/hr 05/14/17 11:45 05/14/17 11:54 1/2 Normal Saline IV 125 mls/hr ASDIR [facility] Administration Insulin Aspart 1 vial 05/14/17 11:00 05/14/17 11:00 Novolog Vial Sliding Scale - SQ 4 units ACHS [facility] Administration Protocol Insulin Detemir 15 units 05/14/17 22:00 Levemir Vial SQ HS [facility]CH Insulin Detemir 20 units 05/15/17 07:00 Levemir Vial SQ AM MITCH Metoprolol Succinate 25 mg 05/14/17 10:00 05/14/17 11:16 Toprol Xl - PO 25 mg DAILY MITCH Administration Pregabalin 50 mg 05/14/17 11:15 05/14/17 11:25 Lyrica - PO Not Given DAILY [facility] Quinapril HCl 10 mg 05/14/17 11:15 10/11/17 11:31 Accupril - PO 10 mg DAILY MITCH Administration Rosuvastatin Calcium 5 mg 05/14/17 22:00 Crestor - PO HS MITCH Sitagliptin Phosphate 25 mg 05/15/17 07:00 Januvia - PO DAILY@0700 [facility] ASSESSMENT/PLAN: Patient is a 71 year old female with a PMHx of IDDMII and HTN who presented to the ED with confusion, polyuria, polydipsia, and diffuse pruritus and was found to have hyperglycemia with a gluvose level >1000. Patient admitted to ICU for further monitoring and management. Neuro -AAOX3 -No focal deficits. No longer lethargiv Endocrine #Hyperosmolar Hyperglycemic State- Improved -Insulin drip discontinued. No anion gap -Continue 1/2NS IV @125mls/hr -Levemir 10units given -ISS and BGM -A1C 11.6 -endocrinology consult placed Cardiovascular #HTN- Controlled -Metoprolol 25mg daily started -Continue to monitor BP F/E/N -1/2 NS @125mls/hr -Hypophosphatemia repleted -Diabetic Diet Prophylaxis -Heparin 5000 units SQ Q8H for DVT -No GI required Deconditioning -PT Ordered Disposition -Full code -Transfer to med/surg Visit type - Emergency Visit Emergency Visit: Yes ED Registration Date: 05/13/17 Care time: The patient presented to the Emergency Department on the above date and was hospitalized for further evaluation of their emergent condition. - New Patient This patient is new to me today: Yes Date on this admission: 05/14/17 - Critical Care Critical Care patient: Yes Total Critical Care Time (in minutes): 45 Critical Care Statement: The care of this patient involved high complexity decision making to prevent further life threatening deterioration of the patient 's condition and/or to evaluate & treat vital organ system(s) failure or risk of failure.
[2017-05-14] MEDS: SODIUM CHLORIDE 0.45% 1,000 ML IV SCH ×2 (18:33→21:39)
[2017-05-14] MEDS: ROSUVASTATIN CA 5 MG TABLET (FP) PO SCH (21:38)
[2017-05-14] MEDS: HEPARIN NA (PORCINE) 5,000 UNITS/ML 1ML VIAL SQ SCH (21:38)
[2017-05-14] MEDS ORDERED: INSULIN DETEMIR 100 UNITS/ML MDV SQ SCH (22:00)
[2017-05-14] MEDS ORDERED: ROSUVASTATIN CA 5 MG TABLET (FP) PO SCH (22:00)
[2017-05-14] MEDS: INSULIN DETEMIR 100 UNITS/ML MDV SQ SCH ×2 (22:58→23:00)
--- NOTE | 2017-05-15 01:46 | CONSULT ---
Consult Consult Specialty:: endocrine Referred by:: iriada miller md. Reason for Consultation:: dka dehydration - History of Present Illness Chief Complaint: high sugars nausea weak History of Present Illness: 71 year old female with history of DM2 and HTN presenting with cc of itching of feet and external vagina for three days. Patient states she was seen by her PCP today for this complaint who sent a prescription to her pharmacy but was unable to get the prescription and came into the ED because the itching was unberable. Endorses headache, blurry vision, sore throat, loss of appetite and increased urination for the last three days. Denies fever, chills, shortness of breath, chest pain, nausea,and poor appetite high sugars uncontrolled admitted with dka - History Source History Provided By: Patient, Family Member - Past Medical History Cardio/Vascular: Yes: HTN, Hyperlipdemia. No: AFIB, Aneurysm, Aortic Insufficiency, Aortic Stenosis, CAD, CHF, Deep Vein Thrombosis, [place], Mitral Insufficiency, Mitral Stenosis, Murmur, Pulmonary Hypertension, Other ...: No Endocrine: Yes: Diabetes Mellitus. No: [place]'s Disease, [place]'s Disease, Diabetes Insipidus, Hyperparathyroidism, Hyperthyroidism, Hypothyroidism, Osteopenia, SIADH, Other - Alcohol/Substance Use Hx Alcohol Use: No History of Substance Use: reports: None - Smoking History Smoking history: Current every day smoker Aproximately how many cigarettes per day: 5 - Social History ADL: Independent Occupation: Retired History of Recent Travel: Yes ([place] ) Home Medications - Allergies Allergies/Adverse Reactions: Allergies Allergy/AdvReac Type Severity Reaction Status Date / Time sulfamethoxazole Allergy Verified 05/13/17 15:37 [From Bactrim] trimethoprim [From Bactrim] Allergy Verified 05/13/17 15:37 - Home Medications Home Medications: Ambulatory Orders Fenofibrate Nanocrystallized [Fenofibrate] 145 mg PO DAILY 05/08/14 Folic Acid/Multivit-Min/Lutein [Centrum Silver Chewable Tablet] 1 tab PO DAILY 05/08/14 Glipizide 10 mg PO DAILY 05/08/14 Insulin (Levemir) [Levemir Flexpen -] 10 units SQ HS 05/08/14 Linagliptin [Tradjenta] 5 mg PO DAILY 05/08/14 Lipase/Protease/Amylase [John Figueroa 24,000 Units Capsule] 1 cap PO TID 05/08/14 Metoprolol Succinate [Toprol XL -] 25 mg PO DAILY 05/08/14 Omeprazole [Prilosec] 40 mg PO DAILY 05/08/14 Pregabalin [Lyrica -] 50 mg PO DAILY 05/08/14 Raloxifene HCl 60 mg PO DAILY 05/08/14 Rosuvastatin Calcium [Crestor] 5 mg PO HS 05/08/14 Quinapril HCl [Accupril -] 10 mg PO DAILY #30 tablet 05/10/14 Family Disease History - Family Disease History Family Disease History: Other: Father (unknown ), Mother (vaginal cancer ) Review of Systems - Review of Systems Constitutional: reports: Lethargy, Weakness Eyes: reports: Blurred Vision HENT: reports: Throat Pain Neck: reports: No Symptoms Respiratory: reports: Exercise Intolerance, SOB on Exertion Gastrointestinal: reports: Bloating Genitourinary: reports: Burning Musculoskeletal: reports: Muscle Weakness Endocrine: reports: Unexplained Weight Loss Physical Exam Vital Signs: Vital Signs Temperature 97.6 F 05/14/17 21:27 Pulse Rate 88 05/14/17 21:27 Respiratory Rate 18 05/14/17 21:27 Blood Pressure 148/86 05/14/17 21:27 O2 Sat by Pulse Oximetry (%) 98 05/14/17 10:00 Constitutional: Yes: Anxious Eyes: Yes: EOM Intact HENT: Yes: Normocephalic Neck: Yes: Trachea Midline Cardiovascular: Yes: Regular Rate and Rhythm Respiratory: Yes: CTA Bilaterally Gastrointestinal: Yes: Normal Bowel Sounds ...Rectal Exam: Yes: Deferred Renal/: Yes: WNL Breast(s): Yes: WNL Musculoskeletal: Yes: WNL Extremities: Yes: WNL Neurological: Yes: Alert, Oriented Labs: CBC, BMP 05/14/17 05:00 05/14/17 05:00 Problem List - Problems (1) TRUE (acute kidney injury) Code(s): N17.9 - ACUTE KIDNEY FAILURE, UNSPECIFIED (2) DKA (diabetic ketoacidoses) Code(s): E13.10 - OTH DIABETES MELLITUS WITH KETOACIDOSIS WITHOUT COMA (3) Dehydration with hyponatremia Code(s): E87.1 - HYPO-OSMOLALITY AND HYPONATREMIA (4) Hyperglycemia Code(s): R73.9 - HYPERGLYCEMIA, UNSPECIFIED (5) Hyperosmolality syndrome Code(s): E87.0 - HYPEROSMOLALITY AND HYPERNATREMIA (6) Diabetes mellitus Code(s): E11.9 - TYPE 2 DIABETES MELLITUS WITHOUT COMPLICATIONS (7) HTN (hypertension) Code(s): I10 - ESSENTIAL (PRIMARY) HYPERTENSION Assessment/Plan Current Active Problems TRUE (acute kidney injury) (Acute) DKA (diabetic ketoacidoses) (Acute) Dehydration with hyponatremia (Acute) Hyperglycemia (Acute) Hyperosmolality syndrome (Acute) Hyperosmolarity due to secondary diabetes (Acute) Abnormal Lab Results 05/14/17 05/14/17 05/14/17 05:00 05:00 05:00 RBC 3.37 L Hgb 9.7 L D Hct 29.3 L D Chloride 114 H Carbon Dioxide 17 L BUN 22 H Creatinine 2.0 H Random Glucose 170 H D Hemoglobin A1c % 11.6 H D Phosphorus 2.0 L D AST 9 L Alkaline Phosphatase 209 H D Total Protein 5.6 L D Albumin 3.0 L D Triglycerides 235 H D HDL Cholesterol 23 L D Laboratory Results - last 24 hr 05/14/17 05/14/17 05/14/17 05:00 05:00 05:00 WBC 9.7 D RBC 3.37 L Hgb 9.7 L D Hct 29.3 L D MCV 86.9 MCH 28.8 MCHC 33.2 RDW 13.0 Plt Count 134 MPV 10.5 Sodium 142 Potassium 4.7 D Chloride 114 H Carbon Dioxide 17 L Anion Gap 11 BUN 22 H Creatinine 2.0 H Creat Clearance w eGFR 24.56 POC Glucometer Random Glucose 170 H D Hemoglobin A1c % 11.6 H D Calcium 8.5 Phosphorus 2.0 L D Magnesium 1.9 Total Bilirubin 0.5 D AST 9 L ALT 16 Alkaline Phosphatase 209 H D Total Protein 5.6 L D Albumin 3.0 L D Triglycerides 235 H D Cholesterol 88 D Total LDL Cholesterol 38 HDL Cholesterol 23 L D TSH 0.99 D 05/14/17 05/14/17 09:45 21:35 WBC RBC Hgb Hct MCV MCH MCHC RDW Plt Count MPV Sodium Potassium Chloride Carbon Dioxide Anion Gap BUN Creatinine Creat Clearance w eGFR POC Glucometer 90 Random Glucose Hemoglobin A1c % Calcium Phosphorus Magnesium Total Bilirubin AST ALT Alkaline Phosphatase Total Protein Albumin Triglycerides Cancelled Cholesterol Cancelled Total LDL Cholesterol Cancelled HDL Cholesterol Cancelled TSH Cancelled plan: iv fluid redydration for volume adjustment to normalize ag insulin drip bgm q1 hr then repeat bmp once ag normal resume levemir dose schedule
[2017-05-15] MEDS: SODIUM CHLORIDE 0.45% 1,000 ML IV SCH ×3 (04:00→22:33)
[2017-05-15] MEDS: INSULIN SLIDING SCALE (NOVOLOG) 1 VIAL SQ SCH ×4 (06:40→22:34)
[2017-05-15] MEDS: sitaGLIPtin PHOSPHATE 25 MG TABLET (FP) PO SCH (06:40)
[2017-05-15] MEDS: INSULIN DETEMIR 100 UNITS/ML MDV SQ SCH ×2 (06:40→22:32)
[2017-05-15 07:30] LABS: MCH 28.3 pg (25.7-33.7); MCHC 32.5 g/dl (32.0-36.0); MEAN PLT VOLUME 10.1 fl (7.5-11.1); PLATELET COUNT 154 K/MM3 (134-434); RDW 13.4 % (11.6-15.6); WHITE BLOOD COUNT 10.5 K/mm3 (4.0-10.0)
[2017-05-15 07:50] LABS: ANION GAP 9 (8-16); CALCIUM 8.6 mg/dL (8.5-10.1); CO2 18 mmol/L (21-32); CREATININE 1.8 mg/dL (0.55-1.02); GLUCOSE,RANDOM 145 mg/dL (74-106); MAGNESIUM 1.8 mg/dL (1.8-2.4); PHOSPHOROUS 2.8 mg/dL (2.5-4.9)
--- NOTE | 2017-05-15 09:47 | PN ---
Progress Note (short form) - Note Progress Note: Feels overall better. Comfortable on RA. No CP or SOB. Denies urinary symptoms. Intake & Output 05/12/17 05/13/17 05/14/17 05/15/17 23:59 23:59 23:59 23:59 Intake Total 2781 1500 Output Total 2200 Balance 581 1500 Weight 103 lb 9.876 oz 103 lb 3.2 oz Last Vital Signs Temp Pulse Resp BP Pulse Ox 98 F 94 H 18 146/77 98 05/15/17 05:49 05/15/17 08:42 05/15/17 08:42 05/15/17 08:42 05/14/17 21:00 Active Medications Fenofibric Acid (Trilipix -) 135 mg PO DAILY [facility] Heparin Sodium (Porcine) (Heparin -) 5,000 unit SQ BID [facility] Last Admin: 05/14/17 21:38 Dose: 5,000 unit Sodium Chloride (1/2 Normal Saline) 1,000 mls @ 125 mls/hr IV ASDIR [facility] Last Admin: 05/15/17 04:00 Dose: 125 mls/hr Insulin Aspart (Novolog Vial Sliding Scale -) 1 vial SQ ACHS [facility] PRN Reason: Protocol Last Admin: 05/15/17 06:40 Dose: 2 units Insulin Detemir (Levemir Vial) 15 units SQ HS [facility] Last Admin: 05/14/17 23:00 Dose: Not Given Insulin Detemir (Levemir Vial) 20 units SQ AM [facility] Last Admin: 05/15/17 06:40 Dose: 20 units Metoprolol Succinate (Toprol Xl -) 25 mg PO DAILY [facility] Pancrelipase (Creon Dr 6,000 Units Capsule) 4 cap PO TIDCM [facility] Pregabalin (Lyrica -) 50 mg PO DAILY [facility] Quinapril HCl (Accupril -) 10 mg PO DAILY [facility] Rosuvastatin Calcium (Crestor -) 5 mg PO HS [facility] Last Admin: 05/14/17 21:38 Dose: 5 mg Sitagliptin Phosphate (Januvia -) 25 mg PO DAILY@0700 [facility] Last Admin: 05/15/17 06:40 Dose: 25 mg Gen: NAD at rest HEENT: (-) Pallor Heart: RRR Lung: Clear Abd: soft, nontender Ext: no edema Laboratory Results - last 24 hr 05/14/17 05/14/17 05/14/17 05:00 09:45 21:35 WBC RBC Hgb Hct MCV MCH MCHC RDW Plt Count MPV Sodium 142 Potassium 4.7 D Chloride 114 H Carbon Dioxide 17 L Anion Gap 11 BUN 22 H Creatinine 2.0 H Creat Clearance w eGFR 24.56 POC Glucometer 90 Random Glucose 170 H D Calcium 8.5 Phosphorus 2.0 L D Magnesium 1.9 Total Bilirubin 0.5 D AST 9 L ALT 16 Alkaline Phosphatase 209 H D Total Protein 5.6 L D Albumin 3.0 L D Triglycerides 235 H D Cancelled Cholesterol 88 D Cancelled Total LDL Cholesterol 38 Cancelled HDL Cholesterol 23 L D Cancelled TSH 0.99 D Cancelled 05/15/17 05/15/17 05/15/17 06:00 06:00 06:04 WBC 10.5 H RBC 3.98 Hgb 11.2 D Hct 34.6 D MCV 87.0 MCH 28.3 MCHC 32.5 RDW 13.4 Plt Count 154 MPV 10.1 Sodium 141 Potassium 4.1 Chloride 114 H Carbon Dioxide 18 L Anion Gap 9 BUN 16 D Creatinine 1.8 H Creat Clearance w eGFR POC Glucometer 162 Random Glucose 145 H Calcium 8.6 Phosphorus 2.8 D Magnesium 1.8 Total Bilirubin AST ALT Alkaline Phosphatase Total Protein Albumin Triglycerides Cholesterol Total LDL Cholesterol HDL Cholesterol TSH ASSESSMENT AND PLAN: Hyperglycemic Hyperosmolar Non Ketotic State Acute on Chronic Renal Failure (+) Urine culture -> Asymptomatic at present - glucose control per Endo/primary - IVF - hold LILA-I until renal function stabilizes - PO as tolerated - Presently off ABX Dr Lui
--- NOTE | 2017-05-15 09:51 | PN ---
Progress Note, Physician Chief Complaint: DKA, renal insufficiency, abnormal liver enzymes - Current Medication List Current Medications: Active Medications Fenofibric Acid (Trilipix -) 135 mg PO DAILY [facility] Heparin Sodium (Porcine) (Heparin -) 5,000 unit SQ BID [facility] Last Admin: 05/14/17 21:38 Dose: 5,000 unit Sodium Chloride (1/2 Normal Saline) 1,000 mls @ 125 mls/hr IV ASDIR [facility] Last Admin: 05/15/17 04:00 Dose: 125 mls/hr Insulin Aspart (Novolog Vial Sliding Scale -) 1 vial SQ ACHS [facility] PRN Reason: Protocol Last Admin: 05/15/17 06:40 Dose: 2 units Insulin Detemir (Levemir Vial) 15 units SQ HS [facility] Last Admin: 05/14/17 23:00 Dose: Not Given Insulin Detemir (Levemir Vial) 20 units SQ AM [facility] Last Admin: 05/15/17 06:40 Dose: 20 units Metoprolol Succinate (Toprol Xl -) 25 mg PO DAILY [facility] Pancrelipase (Creon Dr 6,000 Units Capsule) 4 cap PO TIDCM [facility] Pregabalin (Lyrica -) 50 mg PO DAILY [facility] Quinapril HCl (Accupril -) 10 mg PO DAILY [facility] Rosuvastatin Calcium (Crestor -) 5 mg PO HS [facility] Last Admin: 05/14/17 21:38 Dose: 5 mg Sitagliptin Phosphate (Januvia -) 25 mg PO DAILY@0700 [facility] Last Admin: 05/15/17 06:40 Dose: 25 mg - Objective Vital Signs: Vital Signs Temperature 98 F 05/15/17 05:49 Pulse Rate 94 H 05/15/17 08:42 Respiratory Rate 18 05/15/17 08:42 Blood Pressure 146/77 05/15/17 08:42 O2 Sat by Pulse Oximetry (%) 98 05/14/17 21:00 Constitutional: Yes: Well Nourished, No Distress, Calm Cardiovascular: Yes: Regular Rate and Rhythm Respiratory: Yes: Regular Gastrointestinal: Yes: Normal Bowel Sounds Musculoskeletal: Yes: WNL Extremities: Yes: WNL Edema: No Peripheral Pulses WNL: Yes Neurological: Yes: Alert, Oriented Psychiatric: Yes: Alert, Oriented Labs: CBC, BMP 05/15/17 06:00 05/15/17 06:00 Problem List - Problems (1) TRUE (acute kidney injury) Assessment/Plan: -improving -renal consult Code(s): N17.9 - ACUTE KIDNEY FAILURE, UNSPECIFIED (2) DKA (diabetic ketoacidoses) Assessment/Plan: -improved -endocrinology consult -on Januvia, Levemir and novolog sliding scale Code(s): E13.10 - OTH DIABETES MELLITUS WITH KETOACIDOSIS WITHOUT COMA (3) Dehydration with hyponatremia Assessment/Plan: -normalized -decrease 1/2 NS to 75 mls/hr -monitor labs in AM Code(s): E87.1 - HYPO-OSMOLALITY AND HYPONATREMIA (4) Diabetes mellitus Assessment/Plan: -last A1C at 11.9 -endocrinology consult -on Januvia, levemir and novolog sliding scale. Code(s): E11.9 - TYPE 2 DIABETES MELLITUS WITHOUT COMPLICATIONS (5) HTN (hypertension) Assessment/Plan: -mostly controlled -Cardiology consult -Echo ordered Code(s): I10 - ESSENTIAL (PRIMARY) HYPERTENSION (6) Abnormal liver enzymes Assessment/Plan: -GI consult -U/S liver? Code(s): R74.8 - ABNORMAL LEVELS OF OTHER SERUM ENZYMES (7) UTI (urinary tract infection) Assessment/Plan: -UC LFGNB preliminary -started on cephalosporin -wbc mildly increase -labs in AM Code(s): N39.0 - URINARY TRACT INFECTION, SITE NOT SPECIFIED Assessment/Plan Physical therapy DVT prophylaxis Also, see problem list
--- NOTE | 2017-05-15 10:32 | CONSULT ---
Consultation: CONSULT REQUEST: INFECTIOUS DISEASE HISTORY OF PRESENT ILLNESS: Ms. Fitzgerald is a 71yo F with PMhx of DM2, HTN, pancreatic insufficiency who presented to ED with confusion and pruritis of feet and vagina. She also endorsed polyuria for 1 week. Endorses that for 1 week her BG readings at home have been "high". In the ER she was found to be in HHS with BGM >1000s, anion gap 14. She was transferred to the ICU for IVF, IV insulin. She has since been transferred to med/surg, off insulin drip. On admission the patient's UA revealed 1+ leukocyte esterase and 20 WBC. She did not receive antibiotics at the time. A urine culture was taken, and now growing lactose fermenting gram negative bacilli. Today, the patient feels much better. She denied ever having dysuria, abdominal pain, back pain. She denies prior UTIs. Denies recent instrumentation. She lives with her and grandchildren, no recent travel OOC, everyday smoker 5 cig/day, no alcohol, no sick contacts. Home Medication List Medication Instructions Recorded Confirmed Type Fenofibrate Nanocrystallized 145 mg PO DAILY 05/08/14 05/13/17 History [Fenofibrate] Folic Acid/Multivit-Min/Lutein 1 tab PO DAILY 05/08/14 05/13/17 History [Centrum Silver Chewable Tablet] Glipizide 10 mg PO DAILY 05/08/14 05/13/17 History Insulin (Levemir) [Levemir Flexpen 10 units SQ HS 05/08/14 05/13/17 History -] Linagliptin [Tradjenta] 5 mg PO DAILY 05/08/14 05/13/17 History Lipase/Protease/Amylase [Creon Dr 1 cap PO TID 05/08/14 05/13/17 History 24,000 Units Capsule] Metoprolol Succinate [Toprol XL -] 25 mg PO DAILY 05/08/14 05/13/17 History Omeprazole [Prilosec] 40 mg PO DAILY 05/08/14 05/13/17 History Pregabalin [Lyrica -] 50 mg PO DAILY 05/08/14 05/13/17 History Raloxifene HCl 60 mg PO DAILY 05/08/14 05/13/17 History Rosuvastatin Calcium [Crestor] 5 mg PO HS 05/08/14 05/13/17 History Active Medications Generic Name Dose Route Start Last Admin Trade Name Liliana PRN Reason Stop Dose Admin Fenofibric Acid 135 mg 05/15/17 10:00 Trilipix - PO DAILY [facility] Heparin Sodium (Porcine) 5,000 unit 05/14/17 22:00 05/14/17 21:38 Heparin - SQ 5,000 unit BID [facility] Administration Sodium Chloride 1,000 mls @ 125 mls/hr 05/14/17 17:54 05/15/17 04:00 1/2 Normal Saline IV 125 mls/hr ASDIR [facility] Administration Insulin Aspart 1 vial 05/14/17 22:00 05/15/17 06:40 Novolog Vial Sliding Scale - SQ 2 units ACHS [facility] Administration Protocol Insulin Detemir 15 units 05/14/17 22:00 05/14/17 23:00 Levemir Vial SQ Not Given HS [facility] Insulin Detemir 20 units 05/15/17 07:00 05/15/17 06:40 Levemir Vial SQ 20 units AM [facility] Administration Metoprolol Succinate 25 mg 05/15/17 10:00 Toprol Xl - PO DAILY [facility] Pancrelipase 4 cap 05/15/17 12:[address] 6,000 Units Capsule PO TIDCM [facility] Pregabalin 50 mg 05/15/17 10:00 Lyrica - PO DAILY [facility] Quinapril HCl 10 mg 05/15/17 10:00 Accupril - PO DAILY [facility] Rosuvastatin Calcium 5 mg 05/14/17 22:00 05/14/17 21:38 Crestor - PO 5 mg HS [facility] Administration Sitagliptin Phosphate 25 mg 05/15/17 07:00 05/15/17 06:40 Januvia - PO 25 mg DAILY@0700 [facility] Administration REVIEW OF SYSTEMS: CONSTITUTIONAL: Absent: fever, chills, diaphoresis, generalized weakness, malaise, loss of appetite, weight change HEENT: Absent: rhinorrhea, nasal congestion, throat pain, throat swelling, difficulty swallowing, mouth swelling, ear pain, eye pain, visual changes CARDIOVASCULAR: Absent: chest pain, syncope, palpitations, irregular heart rate, lightheadedness , peripheral edema RESPIRATORY: Absent: cough, shortness of breath, dyspnea with exertion, orthopnea, wheezing, stridor, hemoptysis GASTROINTESTINAL: Absent: abdominal pain, abdominal distension, nausea, vomiting, diarrhea, constipation, melena, hematochezia GENITOURINARY: Absent: dysuria, frequency, urgency, hesitancy, hematuria, flank pain, genital pain MUSCULOSKELETAL: Absent: myalgia, arthralgia, joint swelling, back pain, neck pain SKIN: Absent: rash, itching, pallor HEMATOLOGIC/IMMUNOLOGIC: Absent: easy bleeding, easy bruising, lymphadenopathy, frequent infections ENDOCRINE: Absent: unexplained weight gain, unexplained weight loss, heat intolerance, cold intolerance NEUROLOGIC: Absent: headache, focal weakness or paresthesias, dizziness, unsteady gait, seizure, mental status changes, bladder or bowel incontinence PSYCHIATRIC: Absent: anxiety, depression, suicidal or homicidal ideation, hallucinations. PHYSICAL EXAMINATION Vital Signs Temperature 98 F 05/15/17 05:49 Pulse Rate 94 H 05/15/17 08:42 Respiratory Rate 18 05/15/17 08:42 Blood Pressure 146/77 05/15/17 08:42 O2 Sat by Pulse Oximetry (%) 98 05/14/17 21:00 GEN: AAOx3, NAD HEENT: PERRLA, EOMi CV: S1, S2, RRR LUNG: CTABL ABD: Soft, NT, ND, no suprapubic tenderness MSK: No flank tenderness, no edema, no erythema Microbiology No prior UCx in chart 05/13/17 16:48 Urine - Urine Clean Catch Urine Culture - Preliminary Lactose Fermenting Neg Bacilli Laboratory Tests 05/13/17 05/14/17 05/14/17 16:48 05:00 05:00 WBC 9.7 D Random Glucose 1097 H* 170 H D 05/15/17 05/15/17 06:00 06:00 WBC 10.5 H Random Glucose 145 H ASSESSMENT/PLAN: Pt is a 71yo F with PMhx of DM2, HTN, pancreatic insufficiency who presented to ED with confusion and pruritis of feet and vagina, eventually diagnosed with Hyperglycemic Hyperosmolar Syndrome, treated in ICU, now found to have UTI. # UTI - uncomplicated - Cultures grew LFGNB >100k colonies - PO Cefodoxime 200mg QD (based on CrCl) - Await final culture, s/s - No concern for pyelo at the moment - Allergy to bactrim noted Discussed w/ Dr Bruce. Will follow. Amanda Hargrove MD - PGY1 Infectious Disease Visit type - Emergency Visit Emergency Visit: No - New Patient This patient is new to me today: No - Critical Care Critical Care patient: No
[2017-05-15] MEDS ORDERED: PT OWN MED DRAWER 7, Y5N ONE ×3 (11:01→16:41)
[2017-05-15] MEDS: METOPROLOL SUCCINATE 25 MG TAB.SR.24H (FP) PO SCH (11:12)
[2017-05-15] MEDS: QUINAPRIL HCL 10 MG TABLET (FP) PO SCH (11:12)
[2017-05-15] MEDS: PREGABALIN 50 MG CAPSULE PO SCH (11:12)
[2017-05-15] MEDS: FENOFIBRIC ACID 135 MG CAP PO SCH (11:13)
[2017-05-15] MEDS: HEPARIN NA (PORCINE) 5,000 UNITS/ML 1ML VIAL SQ SCH ×2 (11:14→22:34)
[2017-05-15] MEDS: LIPASE/PROTEASE/AMYLASE 6,000 UNIT CAPSULE PO SCH ×2 (12:07→18:28)
--- NOTE | 2017-05-15 12:30 | PN ---
Progress Note, Physician - Current Medication List Current Medications: Active Medications Fenofibric Acid (Trilipix -) 135 mg PO DAILY [facility] Last Admin: 05/15/17 11:13 Dose: 135 mg Heparin Sodium (Porcine) (Heparin -) 5,000 unit SQ BID [facility] Last Admin: 05/15/17 11:14 Dose: 5,000 unit Sodium Chloride (1/2 Normal Saline) 1,000 mls @ 125 mls/hr IV ASDIR [facility] Last Admin: 05/15/17 04:00 Dose: 125 mls/hr Insulin Aspart (Novolog Vial Sliding Scale -) 1 vial SQ ACHS [facility] PRN Reason: Protocol Last Admin: 05/15/17 06:40 Dose: 2 units Insulin Detemir (Levemir Vial) 15 units SQ HS [facility] Last Admin: 05/14/17 23:00 Dose: Not Given Insulin Detemir (Levemir Vial) 20 units SQ AM [facility] Last Admin: 05/15/17 06:40 Dose: 20 units Metoprolol Succinate (Toprol Xl -) 25 mg PO DAILY [facility] Last Admin: 05/15/17 11:12 Dose: 25 mg Pancrelipase (Creon Dr 6,000 Units Capsule) 4 cap PO TIDCM [facility] Pregabalin (Lyrica -) 50 mg PO DAILY [facility] Last Admin: 05/15/17 11:12 Dose: 50 mg Quinapril HCl (Accupril -) 10 mg PO DAILY [facility] Last Admin: 05/15/17 11:12 Dose: 10 mg Rosuvastatin Calcium (Crestor -) 5 mg PO HS [facility] Last Admin: 05/14/17 21:38 Dose: 5 mg Sitagliptin Phosphate (Januvia -) 25 mg PO DAILY@0700 [facility] Last Admin: 05/15/17 06:40 Dose: 25 mg - Objective Vital Signs: Vital Signs Temperature 98 F 05/15/17 11:03 Pulse Rate 93 H 05/15/17 11:03 Respiratory Rate 18 05/15/17 11:03 Blood Pressure 159/73 05/15/17 11:03 O2 Sat by Pulse Oximetry (%) 98 05/14/17 21:00 Labs: CBC, BMP 05/15/17 06:00 05/15/17 06:00
--- NOTE | 2017-05-15 12:33 | PN ---
Teaching Attending Note Name of Resident: Amanda Hargrove ATTENDING PHYSICIAN STATEMENT I saw and evaluated the patient. I reviewed the resident's note and discussed the case with the resident. I agree with the resident's findings and plan as documented. SUBJECTIVE:Consult reviewed and examined Asymptomatic from urinary stand point OBJECTIVE: ASSESSMENT AND PLAN: Microbiology 05/13/17 16:48 Urine - Urine Clean Catch Urine Culture - Preliminary Lactose Fermenting Neg Bacilli Laboratory Tests 05/13/17 05/15/17 16:48 06:00 WBC 10.5 H Hgb 11.2 D Plt Count 154 Ur Leukocyte Esterase 1+ H Urine RBC 4 Urine WBC 20 Assessment Uncomplicated Gram neg UTI Plan Cefpodoxime 250mg bid 5 days Janis CROWELL Problem List - Problems (1) Diabetes mellitus Code(s): E11.9 - TYPE 2 DIABETES MELLITUS WITHOUT COMPLICATIONS (2) HTN (hypertension) Code(s): I10 - ESSENTIAL (PRIMARY) HYPERTENSION (3) UTI (urinary tract infection) Code(s): N39.0 - URINARY TRACT INFECTION, SITE NOT SPECIFIED
--- NOTE | 2017-05-15 16:47 | CONSULT ---
Consult Consult Specialty:: Nephrology Reason for Consultation:: TRUE - History of Present Illness Chief Complaint: loss of appetite and increased urination History of Present Illness: Pt is a 71 year old female with pmhx of HTN and DM who presents to the ER with malaise and polyuria. She was found to be in DKA and admitted to the hospital. I was called to evaluate her for TRUE. Her renal function has been improving. She says she forgot to take her diabetes medications. She denies nsaid use. She denies history of ckd. She denies dysuria or hematuria. Her daughter is at bedside and helped with history. She denies fevers or chills. - History Source History Provided By: Patient, Medical Record - Past Medical History Cardio/Vascular: Yes: HTN, Hyperlipdemia ...: No Endocrine: Yes: Diabetes Mellitus - Alcohol/Substance Use Hx Alcohol Use: No History of Substance Use: reports: None - Smoking History Smoking history: Current every day smoker Aproximately how many cigarettes per day: 5 - Social History ADL: Independent Occupation: Retired History of Recent Travel: Yes ([place] ) Home Medications - Allergies Allergies/Adverse Reactions: Allergies Allergy/AdvReac Type Severity Reaction Status Date / Time sulfamethoxazole Allergy Verified 05/13/17 15:37 [From Bactrim] trimethoprim [From Bactrim] Allergy Verified 05/13/17 15:37 - Home Medications Home Medications: Ambulatory Orders Fenofibrate Nanocrystallized [Fenofibrate] 145 mg PO DAILY 05/08/14 Folic Acid/Multivit-Min/Lutein [Centrum Silver Chewable Tablet] 1 tab PO DAILY 05/08/14 Glipizide 10 mg PO DAILY 05/08/14 Insulin (Levemir) [Levemir Flexpen -] 10 units SQ HS 05/08/14 Linagliptin [Tradjenta] 5 mg PO DAILY 05/08/14 Lipase/Protease/Amylase [John Figueroa 24,000 Units Capsule] 1 cap PO TID 05/08/14 Metoprolol Succinate [Toprol XL -] 25 mg PO DAILY 05/08/14 Omeprazole [Prilosec] 40 mg PO DAILY 05/08/14 Pregabalin [Lyrica -] 50 mg PO DAILY 05/08/14 Raloxifene HCl 60 mg PO DAILY 05/08/14 Rosuvastatin Calcium [Crestor] 5 mg PO HS 05/08/14 Quinapril HCl [Accupril -] 10 mg PO DAILY #30 tablet 05/10/14 Family Disease History - Family Disease History Family Disease History: Other: Father (unknown ), Mother (vaginal cancer ) Review of Systems - Review of Systems Constitutional: reports: Malaise Eyes: reports: No Symptoms HENT: reports: No Symptoms Neck: reports: No Symptoms Cardiovascular: reports: No Symptoms Respiratory: reports: No Symptoms Gastrointestinal: reports: No Symptoms Genitourinary: reports: Frequency Musculoskeletal: reports: No Symptoms Integumentary: reports: No Symptoms Neurological: reports: No Symptoms Endocrine: reports: Increased Thirst Hematology/Lymphatic: reports: No Symptoms Physical Exam Vital Signs: Vital Signs Temperature 97.9 F 05/15/17 13:51 Pulse Rate 88 05/15/17 13:51 Respiratory Rate 20 05/15/17 13:51 Blood Pressure 145/74 05/15/17 13:51 O2 Sat by Pulse Oximetry (%) 98 05/15/17 09:00 Constitutional: Yes: Calm Eyes: Yes: Conjunctiva Clear HENT: Yes: Atraumatic Neck: Yes: Supple Cardiovascular: Yes: S1, S2 Respiratory: Yes: CTA Bilaterally Gastrointestinal: Yes: Soft Renal/: Yes: WNL Musculoskeletal: Yes: WNL Extremities: Yes: WNL Edema: No Neurological: Yes: Oriented Psychiatric: Yes: Oriented Labs: CBC, BMP 05/15/17 06:00 05/15/17 06:00 Laboratory Tests 05/13/17 05/13/17 05/13/17 16:48 16:48 16:48 WBC Hgb 11.1 Plt Count Sodium Potassium Chloride Carbon Dioxide Anion Gap BUN Creatinine 3.0 H D Random Glucose Hemoglobin A1c % Urine Color Straw Urine Appearance Clear Urine pH 6.0 Ur Specific [place] <= 1.005 Urine Protein Negative Urine Glucose (UA) 3+ H Urine Ketones Negative Urine Blood 1+ H Urine Nitrite Negative Urine Bilirubin Negative Urine Urobilinogen Negative Ur Leukocyte Esterase 1+ H Acetone, Qual 05/13/17 05/13/17 05/13/17 17:58 20:06 23:05 WBC Hgb Plt Count Sodium 126 L 132 L Potassium Chloride Carbon Dioxide Anion Gap BUN Creatinine 2.5 H 2.4 H Random Glucose Hemoglobin A1c % Urine Color Urine Appearance Urine pH Ur Specific [place] Urine Protein Urine Glucose (UA) Urine Ketones Urine Blood Urine Nitrite Urine Bilirubin Urine Urobilinogen Ur Leukocyte Esterase Acetone, Qual Positive,trace 05/14/17 05/14/17 05/14/17 05:00 05:00 05:00 WBC Hgb 9.7 L D Plt Count Sodium 142 Potassium Chloride Carbon Dioxide Anion Gap BUN Creatinine 2.0 H Random Glucose Hemoglobin A1c % 11.6 H D Urine Color Urine Appearance Urine pH Ur Specific [place] Urine Protein Urine Glucose (UA) Urine Ketones Urine Blood Urine Nitrite Urine Bilirubin Urine Urobilinogen Ur Leukocyte Esterase Acetone, Qual 05/15/17 05/15/17 06:00 06:00 WBC 10.5 H Hgb 11.2 D Plt Count 154 Sodium 141 Potassium 4.1 Chloride 114 H Carbon Dioxide 18 L Anion Gap 9 BUN 16 D Creatinine 1.8 H Random Glucose 145 H Hemoglobin A1c % Urine Color Urine Appearance Urine pH Ur Specific [place] Urine Protein Urine Glucose (UA) Urine Ketones Urine Blood Urine Nitrite Urine Bilirubin Urine Urobilinogen Ur Leukocyte Esterase Acetone, Qual Imaging - Results Chest X-ray: Report Reviewed Problem List - Problems (1) TRUE (acute kidney injury) Code(s): N17.9 - ACUTE KIDNEY FAILURE, UNSPECIFIED (2) DKA (diabetic ketoacidoses) Code(s): E13.10 - OTH DIABETES MELLITUS WITH KETOACIDOSIS WITHOUT COMA (3) Dehydration with hyponatremia Code(s): E87.1 - HYPO-OSMOLALITY AND HYPONATREMIA (4) Diabetes mellitus Code(s): E11.9 - TYPE 2 DIABETES MELLITUS WITHOUT COMPLICATIONS (5) HTN (hypertension) Code(s): I10 - ESSENTIAL (PRIMARY) HYPERTENSION Assessment/Plan Current Medications Generic Name Dose Route Start Last Admin Trade Name Freq PRN Reason Stop Dose Admin Cefpodoxime Proxetil 200 mg 05/15/17 13:00 Vantin (Nf) - PO DAILY [facility] Fenofibric Acid 135 mg 05/15/17 10:00 05/15/17 11:13 Trilipix - PO 135 mg DAILY [facility] Administration Heparin Sodium (Porcine) 5,000 unit 05/14/17 22:00 05/15/17 11:14 Heparin - SQ 5,000 unit BID [facility] Administration Sodium Chloride 1,000 mls @ 75 mls/hr 05/15/17 14:15 1/2 Normal Saline IV ASDIR [facility] Insulin Aspart 1 vial 05/14/17 22:00 05/15/17 12:10 Novolog Vial Sliding Scale - SQ Not Given ACHS [facility] Protocol Insulin Detemir 15 units 05/14/17 22:00 05/14/17 23:00 Levemir Vial SQ Not Given HS [facility] Insulin Detemir 20 units 05/15/17 07:00 05/15/17 06:40 Levemir Vial SQ 20 units AM [facility] Administration Metoprolol Succinate 25 mg 05/15/17 10:00 05/15/17 11:12 Toprol Xl - PO 25 mg DAILY [facility] Administration Pancrelipase 4 cap 05/15/17 12:00 05/15/17 12:07 John Figueroa 6,000 Units Capsule PO 4 cap TIDCM [facility] Administration Pregabalin 50 mg 05/15/17 10:00 05/15/17 11:12 Lyrica - PO 50 mg DAILY [facility] Administration Quinapril HCl 10 mg 05/15/17 10:00 05/15/17 11:12 Accupril - PO 10 mg DAILY [facility] Administration Rosuvastatin Calcium 5 mg 05/14/17 22:00 05/14/17 21:38 Crestor - PO 5 mg HS [facility] Administration Sitagliptin Phosphate 25 mg 05/15/17 07:00 05/15/17 06:40 Januvia - PO 25 mg DAILY@0700 [facility] Administration Impression 1. TRUE resolving 2. DKA 3. HTN 4. DM 5. hyperlipidemia 6. hx of pancreatitis 7. UTI Plan - TRUE likely secondary to severe dehydration from DKA - renal function is improving - sodium is stable - will check renal ultrasound - will repeat ua - cont with quinapril - will follow Dr Ba
--- NOTE | 2017-05-15 18:26 | CON.GI ---
Consult Consult Specialty:: Gastroenterology Referred by:: Dr Woodson - History of Present Illness History of Present Illness: 71 y/o F with Alcohol liver cirrhosis,chronic recurrent pancreatitis was asked to be seen because of elevated liver enzymes. She denies abdominal pain, nausea and vomiting. There was no recent weight . Last MRCP November 2016-- revealed a dilated pancreatic duct but no pancreatic neoplasm was noted. She is on pancreatic enzyme supplement. - History Source History Provided By: Patient - Past Medical History Cardio/Vascular: Yes: HTN, Hyperlipdemia ...: No Endocrine: Yes: Diabetes Mellitus - Alcohol/Substance Use Hx Alcohol Use: No History of Substance Use: reports: None - Smoking History Smoking history: Current every day smoker Aproximately how many cigarettes per day: 5 - Social History ADL: Independent Occupation: Retired History of Recent Travel: Yes ([place] ) Home Medications - Allergies Allergies/Adverse Reactions: Allergies Allergy/AdvReac Type Severity Reaction Status Date / Time sulfamethoxazole Allergy Verified 05/13/17 15:37 [From Bactrim] trimethoprim [From Bactrim] Allergy Verified 05/13/17 15:37 - Home Medications Home Medications: Ambulatory Orders Fenofibrate Nanocrystallized [Fenofibrate] 145 mg PO DAILY 05/08/14 Folic Acid/Multivit-Min/Lutein [Centrum Silver Chewable Tablet] 1 tab PO DAILY 05/08/14 Glipizide 10 mg PO DAILY 05/08/14 Insulin (Levemir) [Levemir Flexpen -] 10 units SQ HS 05/08/14 Linagliptin [Tradjenta] 5 mg PO DAILY 05/08/14 Lipase/Protease/Amylase [John Figueroa 24,000 Units Capsule] 1 cap PO TID 05/08/14 Metoprolol Succinate [Toprol XL -] 25 mg PO DAILY 05/08/14 Omeprazole [Prilosec] 40 mg PO DAILY 05/08/14 Pregabalin [Lyrica -] 50 mg PO DAILY 05/08/14 Raloxifene HCl 60 mg PO DAILY 05/08/14 Rosuvastatin Calcium [Crestor] 5 mg PO HS 05/08/14 Quinapril HCl [Accupril -] 10 mg PO DAILY #30 tablet 05/10/14 Family Disease History - Family Disease History Family Disease History: Other: Father (unknown ), Mother (vaginal cancer ) Physical Exam-GI Vital Signs: Vital Signs Temperature 97.9 F 05/15/17 13:51 Pulse Rate 88 05/15/17 13:51 Respiratory Rate 20 05/15/17 13:51 Blood Pressure 145/74 05/15/17 13:51 O2 Sat by Pulse Oximetry (%) 98 05/15/17 09:00 Constitutional: Yes: No Distress Eyes: Yes: Conjunctiva Clear HENT: Yes: Atraumatic, Tonsillar Exudate Cardiovascular: Yes: Regular Rate and Rhythm Respiratory: Yes: CTA Bilaterally ...Palpate: Yes: Soft. No: Firm/Rigid, Guarding, Hepatomegaly, Mass, Pulsatile Mass, Splenomegaly, Tenderness Labs: CBC, BMP 05/15/17 06:00 05/15/17 06:00 Problem List - Problems (1) Alcoholic cirrhosis of liver Assessment/Plan: associated with mild elevation of liver enzymes R> will continue to trend LFTs as an out patient. She has a follow-up appointment with Dr Alvarez this June. She was made to keep her follow-up appointment Code(s): K70.30 - ALCOHOLIC CIRRHOSIS OF LIVER WITHOUT ASCITES (2) Chronic pancreatitis Assessment/Plan: R> conintue low fat diet continue Creon as an out patient Code(s): K86.1 - OTHER CHRONIC PANCREATITIS
[2017-05-15] MEDS: ROSUVASTATIN CA 5 MG TABLET (FP) PO SCH (22:31)
[2017-05-16] MEDS: CEFPODOXIME PROXETIL 100 MG TABLET PO SCH ×2 (02:35→12:31)
[2017-05-16] MEDS: SODIUM CHLORIDE 0.45% 1,000 ML IV SCH (03:59)
[2017-05-16] MEDS: INSULIN DETEMIR 100 UNITS/ML MDV SQ SCH (06:07)
[2017-05-16] MEDS: INSULIN SLIDING SCALE (NOVOLOG) 1 VIAL SQ SCH ×2 (06:07→12:55)
[2017-05-16] MEDS: sitaGLIPtin PHOSPHATE 25 MG TABLET (FP) PO SCH (06:19)
[2017-05-16 08:17] LABS: ANION GAP 9 (8-16); CALCIUM 8.1 mg/dL (8.5-10.1); CO2 18 mmol/L (21-32); CREATININE 1.7 mg/dL (0.55-1.02); GLUCOSE,RANDOM 141 mg/dL (74-106)
[2017-05-16] MEDS ORDERED: PT OWN MED DRAWER 7, Y5N ONE ×2 (09:20→12:22)
[2017-05-16] MEDS: LIPASE/PROTEASE/AMYLASE 6,000 UNIT CAPSULE PO SCH ×2 (09:22→15:29)
[2017-05-16 10:29] LABS: URINE APPEARANCE SLCLOUDY; URINE BILIRUBIN NEGATIVE (NEGATIVE); URINE BLOOD 1+ (NEGATIVE); URINE COLOR LTYELLOW; URINE GLUCOSE (UA) NEGATIVE (NEGATIVE); URINE KETONE NEGATIVE (NEGATIVE); URINE NITRITE NEGATIVE (NEGATIVE); URINE PROTEIN NEGATIVE (NEGATIVE); URINE UROBILINOGEN NEGATIVE mg/dL (0.2-1.0)
--- NOTE | 2017-05-16 10:43 | PN ---
Progress Note, Physician Chief Complaint: DKA, renal insufficiency, abnormal liver enzymes History of Present Illness: NAD, seen by Physical therapy, ambulating independently seen by GI and nephrology renal fxn improving echo insignificant, LV function intact, EF-79% renal U/S normal repeat UA still shows +1 blood- could be normal variant she has a follow up appt with Dr Alvarez o/p - Current Medication List Current Medications: Active Medications Cefpodoxime Proxetil (Vantin (Nf) -) 200 mg PO DAILY [facility] Last Admin: 05/16/17 02:35 Dose: Not Given Fenofibric Acid (Trilipix -) 135 mg PO DAILY [facility] Last Admin: 05/15/17 11:13 Dose: 135 mg Heparin Sodium (Porcine) (Heparin -) 5,000 unit SQ BID [facility] Last Admin: 05/15/17 22:34 Dose: 5,000 unit Sodium Chloride (1/2 Normal Saline) 1,000 mls @ 75 mls/hr IV ASDIR [facility] Last Admin: 05/16/17 03:59 Dose: 75 mls/hr Insulin Aspart (Novolog Vial Sliding Scale -) 1 vial SQ [facility] PRN Reason: Protocol Last Admin: 05/16/17 06:07 Dose: Not Given Insulin Detemir (Levemir Vial) 15 units SQ HS [facility] Last Admin: 05/15/17 22:32 Dose: Not Given Insulin Detemir (Levemir Vial) 20 units SQ AM [facility] Last Admin: 05/16/17 06:07 Dose: Not Given Metoprolol Succinate (Toprol Xl -) 25 mg PO DAILY [facility] Last Admin: 05/15/17 11:12 Dose: 25 mg Pancrelipase (John Figueroa 6,000 Units Capsule) 4 cap PO TIDCM [facility] Last Admin: 05/16/17 09:22 Dose: 4 cap Pregabalin (Lyrica -) 50 mg PO DAILY [facility] Last Admin: 05/15/17 11:12 Dose: 50 mg Quinapril HCl (Accupril -) 10 mg PO DAILY [facility] Last Admin: 05/15/17 11:12 Dose: 10 mg Rosuvastatin Calcium (Crestor -) 5 mg PO HS [facility] Last Admin: 05/15/17 22:31 Dose: 5 mg Sitagliptin Phosphate (Januvia -) 25 mg PO DAILY@0700 [facility] Last Admin: 05/16/17 06:19 Dose: 25 mg - Objective Vital Signs: Vital Signs Temperature 98.1 F 05/16/17 05:55 Pulse Rate 90 05/16/17 05:55 Respiratory Rate 20 05/16/17 05:55 Blood Pressure 140/88 05/16/17 05:55 O2 Sat by Pulse Oximetry (%) 98 05/15/17 21:00 Constitutional: Yes: Well Nourished, No Distress, Calm Cardiovascular: Yes: Regular Rate and Rhythm Respiratory: Yes: Regular Gastrointestinal: Yes: Normal Bowel Sounds Musculoskeletal: Yes: WNL Extremities: Yes: WNL Edema: No Peripheral Pulses WNL: Yes Neurological: Yes: Alert, Oriented Psychiatric: Yes: Alert, Oriented Labs: CBC, BMP 05/15/17 06:00 05/16/17 06:00 Problem List - Problems (1) TRUE (acute kidney injury) Assessment/Plan: -improving, Cr-1.7 -renal U/S normal -seen by renal Code(s): N17.9 - ACUTE KIDNEY FAILURE, UNSPECIFIED (2) DKA (diabetic ketoacidoses) Assessment/Plan: -improved -endocrinology consult -on Januvia, Levemir and novolog sliding scale Code(s): E13.10 - OTH DIABETES MELLITUS WITH KETOACIDOSIS WITHOUT COMA (3) Dehydration with hyponatremia Assessment/Plan: -normalized Code(s): E87.1 - HYPO-OSMOLALITY AND HYPONATREMIA (4) Diabetes mellitus Assessment/Plan: -last A1C at 11.9 -endocrinology consult -on Januvia, levemir and novolog sliding scale. Code(s): E11.9 - TYPE 2 DIABETES MELLITUS WITHOUT COMPLICATIONS (5) HTN (hypertension) Assessment/Plan: -mostly controlled -Cardiology consult -Echo insignificant, LV function intact, EF 79% Code(s): I10 - ESSENTIAL (PRIMARY) HYPERTENSION (6) Abnormal liver enzymes Assessment/Plan: -seen by GI, would be followed by Dr Alvarez outpatient Code(s): R74.8 - ABNORMAL LEVELS OF OTHER SERUM ENZYMES (7) UTI (urinary tract infection) Assessment/Plan: -UC LFGNB preliminary -started on cephalosporin, would d/c her on oral ceftin for another 7 days -wbc mildly increase, repeat CBC today Code(s): N39.0 - URINARY TRACT INFECTION, SITE NOT SPECIFIED Assessment/Plan seen by Physical therapy, ambulating independently okay to be discharged Also, see problem list
[2017-05-16 11:05] LABS: BASOPHIL 0.8 % (0-2.0); EOSINOPHIL 1.9 % (0-4.5); MCH 27.9 pg (25.7-33.7); MCHC 31.6 g/dl (32.0-36.0); MEAN CELL VOLUME 88.1 fl (80-96); MEAN PLT VOLUME 9.7 fl (7.5-11.1); NEUTROPHILS 46.1 % (42.8-82.8); PLATELET COUNT 119 K/MM3 (134-434); RDW 13.5 % (11.6-15.6); WHITE BLOOD COUNT 8.7 K/mm3 (4.0-10.0)
[2017-05-16 11:56] LABS: URINE BACTERIA MODERATE /hpf (NONE SEEN); URINE RBC 2 /hpf (0-3); URINE WBC 69 /hpf (3-5)
[2017-05-16] MEDS: PREGABALIN 50 MG CAPSULE PO SCH (12:28)
[2017-05-16] MEDS: HEPARIN NA (PORCINE) 5,000 UNITS/ML 1ML VIAL SQ SCH ×2 (12:29→13:33)
[2017-05-16] MEDS: METOPROLOL SUCCINATE 25 MG TAB.SR.24H (FP) PO SCH (12:29)
[2017-05-16] MEDS: QUINAPRIL HCL 10 MG TABLET (FP) PO SCH (12:30)
[2017-05-16] MEDS: FENOFIBRIC ACID 135 MG CAP PO SCH (12:30)
--- NOTE | 2017-05-16 13:06 | PN ---
Progress Note, Physician History of Present Illness: Pt seen and examined at bedside. She is awake and alert. She denies shortness of breath. She says she feels better today. - Current Medication List Current Medications: Active Medications Cefpodoxime Proxetil (Vantin (Nf) -) 200 mg PO DAILY [facility] Last Admin: 05/16/17 12:31 Dose: 200 mg Fenofibric Acid (Trilipix -) 135 mg PO DAILY [facility] Last Admin: 05/16/17 12:30 Dose: 135 mg Heparin Sodium (Porcine) (Heparin -) 5,000 unit SQ BID [facility] Last Admin: 05/16/17 12:29 Dose: 5,000 unit Sodium Chloride (1/2 Normal Saline) 1,000 mls @ 75 mls/hr IV ASDIR [facility] Last Admin: 05/16/17 03:59 Dose: 75 mls/hr Insulin Aspart (Novolog Vial Sliding Scale -) 1 vial SQ ACHS [facility] PRN Reason: Protocol Last Admin: 05/16/17 12:55 Dose: 8 units Insulin Detemir (Levemir Vial) 15 units SQ HS [facility] Last Admin: 05/15/17 22:32 Dose: Not Given Insulin Detemir (Levemir Vial) 20 units SQ AM [facility] Last Admin: 05/16/17 06:07 Dose: Not Given Metoprolol Succinate (Toprol Xl -) 25 mg PO DAILY [facility] Last Admin: 05/16/17 12:29 Dose: 25 mg Pancrelipase (Creon Dr 6,000 Units Capsule) 4 cap PO TIDCM [facility] Last Admin: 05/16/17 09:22 Dose: 4 cap Pregabalin (Lyrica -) 50 mg PO DAILY [facility] Last Admin: 05/16/17 12:28 Dose: 50 mg Quinapril HCl (Accupril -) 10 mg PO DAILY [facility] Last Admin: 05/16/17 12:30 Dose: 10 mg Rosuvastatin Calcium (Crestor -) 5 mg PO HS [facility] Last Admin: 05/15/17 22:31 Dose: 5 mg Sitagliptin Phosphate (Januvia -) 25 mg PO DAILY@0700 [facility] Last Admin: 05/16/17 06:19 Dose: 25 mg - Objective Vital Signs: Vital Signs Temperature 98.1 F 05/16/17 05:55 Pulse Rate 98 H 05/16/17 12:32 Respiratory Rate 20 05/16/17 05:55 Blood Pressure 138/66 05/16/17 12:32 O2 Sat by Pulse Oximetry (%) 98 05/15/17 21:00 Constitutional: Yes: Calm Eyes: Yes: Conjunctiva Clear HENT: Yes: Atraumatic Neck: Yes: Supple Cardiovascular: Yes: S1, S2 Respiratory: Yes: CTA Bilaterally Gastrointestinal: Yes: Soft Genitourinary: Yes: WNL Musculoskeletal: Yes: WNL Extremities: Yes: WNL Edema: No Neurological: Yes: Oriented Psychiatric: Yes: Oriented Labs: CBC, BMP 05/16/17 10:45 05/16/17 06:00 Problem List - Problems (1) TRUE (acute kidney injury) Code(s): N17.9 - ACUTE KIDNEY FAILURE, UNSPECIFIED (2) DKA (diabetic ketoacidoses) Code(s): E13.10 - OTH DIABETES MELLITUS WITH KETOACIDOSIS WITHOUT COMA (3) Dehydration with hyponatremia Code(s): E87.1 - HYPO-OSMOLALITY AND HYPONATREMIA (4) Diabetes mellitus Code(s): E11.9 - TYPE 2 DIABETES MELLITUS WITHOUT COMPLICATIONS (5) HTN (hypertension) Code(s): I10 - ESSENTIAL (PRIMARY) HYPERTENSION Assessment/Plan Current Medications Generic Name Dose Route Start Last Admin Trade Name Freq PRN Reason Stop Dose Admin Cefpodoxime Proxetil 200 mg 05/15/17 13:00 05/16/17 12:31 Vantin (Nf) - PO 200 mg DAILY [facility] Administration Fenofibric Acid 135 mg 05/15/17 10:00 05/16/17 12:30 Trilipix - PO 135 mg DAILY [facility] Administration Heparin Sodium (Porcine) 5,000 unit 05/14/17 22:00 05/16/17 12:29 Heparin - SQ 5,000 unit BID [facility] Administration Sodium Chloride 1,000 mls @ 75 mls/hr 05/15/17 14:15 05/16/17 03:59 1/2 Normal Saline IV 75 mls/hr ASDIR [facility] Administration Insulin Aspart 1 vial 05/14/17 22:00 05/16/17 12:55 Novolog Vial Sliding Scale - SQ 8 units ACHS [facility] Administration Protocol Insulin Detemir 15 units 05/14/17 22:00 05/15/17 22:32 Levemir Vial SQ Not Given HS [facility] Insulin Detemir 20 units 05/15/17 07:00 05/16/17 06:07 Levemir Vial SQ Not Given AM [facility] Metoprolol Succinate 25 mg 05/15/17 10:00 05/16/17 12:29 Toprol Xl - PO 25 mg DAILY [facility] Administration Pancrelipase 4 cap 05/15/17 12:00 05/16/17 09:22 Creon 6,000 Units Capsule PO 4 cap TIDCM [facility] Administration Pregabalin 50 mg 05/15/17 10:00 05/16/17 12:28 Lyrica - PO 50 mg DAILY [facility] Administration Quinapril HCl 10 mg 05/15/17 10:00 05/16/17 12:30 Accupril - PO 10 mg DAILY [facility] Administration Rosuvastatin Calcium 5 mg 05/14/17 22:00 05/15/17 22:31 Crestor - PO 5 mg HS [facility] Administration Sitagliptin Phosphate 25 mg 05/15/17 07:00 05/16/17 06:19 Januvia - PO 25 mg DAILY@0700 [facility] Administration Laboratory Tests 05/16/17 05:20 Urine Blood 1+ H Impression 1. TRUE resolving 2. DKA 3. HTN 4. DM 5. hyperlipidemia 6. hx of pancreatitis 7. UTI 8. microscopic hematuria Plan - renal function is improving - reviewed renal ultrasound - pt will need renal workup, she understands this and will see me in the office - discussed with primary team - will repeat ua in office - cont with quinapril - will follow Dr Ba
[2017-05-16 13:43] VITALS: BP 129/71; PULSE 99; TEMP 98.4
[2017-05-16 17:11] LABS: URINE LEUK ESTERASE 3+ (NEGATIVE)
== END 2017-05-16 17:04 | disposition home or self-care (01) | DRG 682 ==
LOC: JER 15:35 → JERBED 18:42 → JICU 21:47 → J7W 05-14 17:45
PROVIDERS: ADMIT Family Medicine; ATTEND Family Medicine
DX: N17.9 Acute kidney failure, unspecified (principal); E11.10 Type 2 diabetes mellitus with ketoacidosis without coma; E87.1 Hypo-osmolality and hyponatremia; Z68.1 Body mass index [BMI] 19.9 or less, adult; N39.0 Urinary tract infection, site not specified; E11.22 Type 2 diabetes mellitus with diabetic chronic kidney disease; N18.9 Chronic kidney disease, unspecified; E78.00 Pure hypercholesterolemia, unspecified; F17.210 Nicotine dependence, cigarettes, uncomplicated; E86.0 Dehydration; Z79.4 Long term (current) use of insulin; Z79.84 Long term (current) use of oral hypoglycemic drugs; K86.89 Other specified diseases of pancreas; R63.4 Abnormal weight loss; Z91.14 Patient's other noncompliance with medication regimen; E11.65 Type 2 diabetes mellitus with hyperglycemia; I12.9 Hypertensive chronic kidney disease with stage 1 through stage 4 chronic kidney disease, or unspecified chronic kidney disease; E83.39 Other disorders of phosphorus metabolism
CPT/HCPCS: 36415; 71010-TC; 76775-TC; 80048; 80053; 80061; 81003; 81015; 82009; 82803; 83036; 83721; 83735; 84100; 84443; 85025; 85027; 87086; 87186; 90688; 93005; 93010; 93306-TC; 97116-GP; 97161-GP; 99283-25; G0008; J1644

== ENCOUNTER 2018-05-07 12:42 | Observation (INO) | payer OTHER ==
[2018-05-07 12:55] VITALS: BMI 21.9
--- NOTE | 2018-05-07 14:03 | PDOC ---
History of Present Illness - General Chief Complaint: Revisit, Lab Variance Stated Complaint: LAB VARIANCE (PCP SENT) Time Seen by Provider: 05/07/18 13:21 History Source: Patient Exam Limitations: No Limitations - History of Present Illness Initial Comments: 05/07/18 13:58 Pt is a 72yo f with PMH of DM, HTN presenting to ED after PCP called and told her to go to ED due to hyperkalemia. Pt was in the office yesterday for a regular check up. Her potassium levels were 6.6. Pt is not having any current complaints. She denies chest pain, SOB, headache, changes in vision, cough, abdominal pains, n/v/d, urinary symptoms. Pt says she feels fine. No history of heart problems. She takes her medications daily. She does not remember which medicines she is taking. PCP: Dr. Ba PMH: dm, htn Meds: insulin, she thinks lisinopril Allergies: sulfa Social: smokes 5 cigarettes/day. Past History - Past Medical History Allergies/Adverse Reactions: Allergies Allergy/AdvReac Type Severity Reaction Status Date / Time sulfamethoxazole Allergy Verified 05/07/18 12:56 [From Bactrim] trimethoprim [From Bactrim] Allergy Verified 05/07/18 12:56 Anemia: Yes Asthma: No Cancer: No Cardiac Disorders: Yes CVA: No COPD: No CHF: No Dementia: No Diabetes: Yes GI Disorders: Yes (pancreatitis) Disorders: No HTN: Yes Hypercholesterolemia: Yes Liver Disease: No Seizures: No Thyroid Disease: No - Surgical History Abdominal Surgery: No Appendectomy: No Cardiac Surgery: No Cholecystectomy: No Lung Surgery: No Neurologic Surgery: No Orthopedic Surgery: No - Immunization History Immunization Up to Date: Yes - Suicide/Smoking/Psychosocial Hx Smoking History: Current every day smoker Have you smoked in the past 12 months: Yes Number of Cigarettes Smoked Daily: 5 Information on smoking cessation initiated: No 'Breaking Loose' booklet given: 05/08/14 Hx Alcohol Use: No Drug/Substance Use Hx: No Substance Use Type: None Hx Substance Use Treatment: No *Physical Exam - Vital Signs Last Vital Signs Temp Pulse Resp BP Pulse Ox 97.9 F 102 H 17 134/82 98 05/07/18 12:52 05/07/18 12:52 05/07/18 12:52 05/07/18 12:52 05/07/18 12:52 - Physical Exam Respiratory/Chest: positive: Wheezing ED Treatment Course - LABORATORY CBC & Chemistry Diagram: 05/07/18 13:50 05/07/18 13:50 Medical Decision Making - Medical Decision Making 05/07/18 14:01 72yo f pmh of dm, htn sent by pcp for hyperkalemia. Vitals: tachycardia, normotensive, saturating well on RA PE: wheezing in lung mercado bilaterally Will order labs, ekg will treat hyperkalemia accordingly 05/07/18 14:02 EKG showed nsr, no peaked T waves, no flattened T waves, no michelle or depressions. normal ekg K 6.3 all other labs wnl. Cr at baseline. Pt started on calcium gluconate, insulin with D5w and saline. Pt will be admitted for hyperkalemia. Dr. Ba consulted and Pt admitted obs under Dr. Lemons *DC/Admit/Observation/Transfer - Referrals Referrals: Sarath Winkler PA [Primary Care Provider] - - Patient Instructions - Post Discharge Activity
[2018-05-07 14:07] LABS: BASO % 0.6 % (0-2.0); EOS % 2.4 % (0-4.5); HEMATOCRIT 33.6 % (32.4-45.2); HEMOGLOBIN 10.6 GM/dL (10.7-15.3); LYMPH % 30.2 % (8-40); MCH 28.1 pg (25.7-33.7); MCHC 31.5 g/dl (32.0-36.0); MEAN CELL VOLUME 89.2 fl (80-96); MEAN PLT VOLUME 9.6 fl (7.5-11.1); MONO % 9.2 % (3.8-10.2); NEUT % 57.6 % (42.8-82.8); PLATELET COUNT 155 K/MM3 (134-434); RBC 3.77 M/mm3 (3.60-5.2); RDW 16.2 % (11.6-15.6); WHITE BLOOD COUNT 8.3 K/mm3 (4.0-10.0)
--- NOTE | 2018-05-07 14:33 | PDOC ---
Attending Attestation - Resident Resident Name: Ngoc Brownlee - ED Attending Attestation I have performed the following: I have examined & evaluated the patient, The case was reviewed & discussed with the resident, I agree w/resident's findings & plan, Exceptions are as noted - HPI HPI: 05/07/18 14:24 The patient is a 72 year old female, current 5 cigarette daily smoker, with a significant past medical history of hypertension, diabetes, CKD, who presents to the emergency department for evaluation of a 6.[address] Leach office yesterday. The patient denies any complaints. The patient denies chest pain, shortness of breath, headache and dizziness. The patient denies fever, chills, nausea, vomit, diarrhea and constipation. The patient denies dysuria, frequency, urgency and hematuria. PCP: Dr. Ba Allergies: sulfa drugs Social: current smoker (5 cigarettes daily) - Physicial Exam PE: 05/07/18 14:27 GENERAL: Awake, alert, and fully oriented, in no acute distress. HEAD: No signs of trauma EYES: PERRLA, EOMI, sclera anicteric, conjunctiva clear ENT: Auricles normal inspection, hearing grossly normal, nares patent, oropharynx clear without exudates. Moist mucosa NECK: Nontender, no stepoffs, Normal ROM, supple, no lymphadenopathy, JVD, or masses LUNGS: Breath sounds equal, clear to auscultation bilaterally. No wheezes, and no crackles HEART: Regular rate and rhythm, normal S1 and S2, no murmurs, rubs or gallops ABDOMEN: Soft, nontender, normoactive bowel sounds. No guarding, no rebound. No masses EXTREMITIES: Normal range of motion, no edema. No clubbing or cyanosis. No cords, erythema, or tenderness NEUROLOGICAL: Cranial nerves II through XII intact. 5/5 strength and sensation in all extremities, Normal speech, normal gait, normal cerebellar function SKIN: Warm, Dry, normal turgor, no rashes or lesions noted. - Critical Care Time Total Critical Care Time: 45 Critical Care Statement: The care of this patient involved high complexity decision making to prevent further life threatening deterioration of the patient 's condition and/or to evaluate & treat vital organ system(s) failure or risk of failure. - Medical Decision Making 05/07/18 14:27 72 F with hyperkalemia on outpt labs. Pt with no complaints. - Labs - EKG 05/07/18 15:42 Labs with K >6 Calcium gluc, insulin + d50, kayexalate given Dr. Rodriguez aware. Will admit tele
[2018-05-07] MEDS ORDERED: SODIUM CHLORIDE 1,000 ML IV STA (14:42)
[2018-05-07 14:48] LABS: ALBUMIN 3.9 g/dl (3.4-5.0); ALK PHOS 243 U/L (45-117); ANION GAP 5 MMOL/L (8-16); BILIRUBIN,TOTAL 0.2 mg/dL (0.2-1); BLOOD UREA NITROGEN 36 mg/dL (7-18); CALCIUM 8.6 mg/dL (8.5-10.1); CHLORIDE 118 mmol/L (98-107); CO2 18 mmol/L (21-32); CREATININE 1.7 mg/dL (0.55-1.3); GLUCOSE,RANDOM 88 mg/dL (74-106); MAGNESIUM 2.1 mg/dL (1.8-2.4); PHOSPHOROUS 4.3 mg/dL (2.5-4.9); SGOT/AST 24 U/L (15-37); SGPT/ALT 24 U/L (13-61); SODIUM 141 mmol/L (136-145); TOT PROT 7.5 g/dl (6.4-8.2)
[2018-05-07 14:53] LABS: POTASSIUM 6.3 mmol/L (3.5-5.1)
[2018-05-07] MEDS ORDERED: CALCIUM GLUCONATE 10% - 1,000 MG/10 ML VIAL IVPB ONE (15:11)
[2018-05-07] MEDS ORDERED: INSULIN REGULAR HUMAN 100 UNITS/ML *VIAL IVPUSH ONE (15:12)
[2018-05-07] MEDS ORDERED: DEXTROSE 50%-WATER - 25 GM/50 ML VIAL IVPUSH ONE (15:12)
[2018-05-07] MEDS ORDERED: SODIUM POLYSTYRENE SULFONATE 15 GM/60 ML BOTTLE PO ONE (15:13)
[2018-05-07] MEDS ORDERED: CALCIUM GLUCONATE 10% - 1,000 MG/10 ML VIAL ONE ×2 (16:11→16:20)
[2018-05-07] MEDS ORDERED: DEXTROSE 50%-WATER 25 GM/50 ML DISP.SYRIN ONE ×2 (16:11→16:31)
[2018-05-07] MEDS ORDERED: INSULIN REGULAR HUMAN 100 UNITS/ML *VIAL ONE (16:11)
[2018-05-07] MEDS ORDERED: SODIUM POLYSTYRENE SULFONATE 15 GM/60 ML BOTTLE ONE (16:15)
[2018-05-07] MEDS ORDERED: SODIUM CHLORIDE 0.45% 1,000 ML IV SCH (16:45)
--- NOTE | 2018-05-07 18:17 | CONSULT ---
Consult Consult Specialty:: Nephrology Reason for Consultation:: hyperkalemia - History of Present Illness Chief Complaint: I sent her in for hyperkalemia History of Present Illness: Pt is a 72 year old female with pmhx of DM, CKD and hyperkalemia who I sent to the hospital for elevated potassium. She came to the office yesterday for follow up visit. I tobi a bmp and she was found to have a potassium of 6.6. I called her and sent her to the hospital for treatment. She denies chest pain or palpitations. She was on lisinopril 10 mg daily. She denies lower ext edema. She says that her DM has been difficult to control and is very labile. She is awake and alert. Family are at bedside. - History Source History Provided By: Patient - Past Medical History Cardio/Vascular: Yes: HTN, Hyperlipdemia Gastrointestinal: Yes: Other (chronic pancreatitis) Renal/: Yes: Renal Inusuff Endocrine: Yes: Diabetes Mellitus - Alcohol/Substance Use Hx Alcohol Use: Yes (hx of etoh abuse) History of Substance Use: reports: None - Smoking History Smoking history: Current every day smoker Have you smoked in the past 12 months: Yes Aproximately how many cigarettes per day: 5 - Social History ADL: Independent Occupation: Retired History of Recent Travel: Yes ([place] ) Home Medications - Allergies Allergies/Adverse Reactions: Allergies Allergy/AdvReac Type Severity Reaction Status Date / Time sulfamethoxazole Allergy Verified 05/07/18 12:56 [From Bactrim] trimethoprim [From Bactrim] Allergy Verified 05/07/18 12:56 - Home Medications Home Medications: Ambulatory Orders Insulin Degludec [Tresiba Flextouch U-100] 20 unit SQ HS 05/07/18 Insulin Lispro [Humalog] 0 unit SQ ASDIR 05/07/18 Pregabalin [Lyrica] 100 mg PO BID 05/07/18 Family Disease History - Family Disease History Family Disease History: Other: Father (unknown ), Mother (vaginal cancer ) Review of Systems - Review of Systems Constitutional: reports: No Symptoms Eyes: reports: No Symptoms HENT: reports: No Symptoms Neck: reports: No Symptoms Cardiovascular: reports: No Symptoms Respiratory: reports: No Symptoms Gastrointestinal: reports: No Symptoms Genitourinary: reports: No Symptoms Musculoskeletal: reports: No Symptoms Integumentary: reports: No Symptoms Neurological: reports: No Symptoms Endocrine: reports: No Symptoms Hematology/Lymphatic: reports: No Symptoms Psychiatric: reports: No Symptoms Physical Exam Vital Signs: Vital Signs Temperature 97.9 F 05/07/18 15:19 Pulse Rate 87 05/07/18 15:19 Respiratory Rate 18 05/07/18 15:19 Blood Pressure 149/93 05/07/18 15:19 O2 Sat by Pulse Oximetry (%) 100 05/07/18 15:19 Constitutional: Yes: Calm Eyes: Yes: Conjunctiva Clear HENT: Yes: Atraumatic Neck: Yes: Supple Cardiovascular: Yes: S1, S2 Respiratory: Yes: CTA Bilaterally Gastrointestinal: Yes: Soft Renal/: Yes: WNL Musculoskeletal: Yes: WNL Edema: No Neurological: Yes: Oriented Psychiatric: Yes: Oriented Labs: CBC, BMP 05/07/18 13:50 05/07/18 16:46 Selected Entries 05/07/18 05/07/18 12:52 15:19 Temperature 97.9 F Pulse Rate 102 H Pulse Rate [ 87 Left Radial] Blood Pressure 134/82 Laboratory Tests 05/13/17 05/14/17 05/15/17 20:06 05:00 06:00 WBC Hgb Plt Count Sodium Potassium Chloride Carbon Dioxide Anion Gap BUN Creatinine 2.5 H 2.0 H 1.8 H Alkaline Phosphatase 05/16/17 05/07/18 05/07/18 06:00 13:50 13:50 WBC 8.3 Hgb 10.6 L Plt Count 155 D Sodium 141 Potassium 6.3 H* Chloride 118 H Carbon Dioxide 18 L Anion Gap 5 L BUN 36 H Creatinine 1.7 H 1.7 H Alkaline Phosphatase 243 H 05/07/18 16:46 WBC Hgb Plt Count Sodium Potassium 5.6 H Chloride Carbon Dioxide Anion Gap BUN Creatinine Alkaline Phosphatase Problem List - Problems (1) CKD (chronic kidney disease) Code(s): N18.9 - CHRONIC KIDNEY DISEASE, UNSPECIFIED (2) Hyperkalemia Code(s): E87.5 - HYPERKALEMIA (3) Alcoholic cirrhosis of liver Code(s): K70.30 - ALCOHOLIC CIRRHOSIS OF LIVER WITHOUT ASCITES (4) Chronic pancreatitis Code(s): K86.1 - OTHER CHRONIC PANCREATITIS (5) HTN (hypertension) Code(s): I10 - ESSENTIAL (PRIMARY) HYPERTENSION (6) Pancreatic insufficiency Code(s): K86.8 - OTHER SPECIFIED DISEASES OF PANCREAS * DO NOT USE * (7) Smoking Code(s): F17.200 - NICOTINE DEPENDENCE, UNSPECIFIED, UNCOMPLICATED Assessment/Plan Current Medications Generic Name Dose Route Start Last Admin Trade Name Freq PRN Reason Stop Dose Admin Amlodipine Besylate 5 mg 05/08/18 10:00 Norvasc - PO DAILY [facility] Heparin Sodium (Porcine) 5,000 unit 05/07/18 22:00 Heparin - SQ TID [facility] Sodium Chloride 1,000 mls @ 75 mls/hr 05/07/18 16:45 05/07/18 17:24 1/2 Normal Saline IV 05/08/18 06:04 75 mls/hr ASDIR [facility] Administration Insulin Aspart 1 vial 05/07/18 22:00 Novolog Vial Sliding Scale - SQ ACHS [facility] Protocol Insulin Detemir 20 units 05/07/18 22:00 Levemir Vial SQ HS [facility] Impression 1. hyperkalemia 2. CKD 3. pancreatic insufficiency 4. hx etoh abuse 5. htn 6. DM Plan - potassium treated medically - start fluids as well - d/c lisinopril - cont metoprolol 25 and norvasc - pt also on creon - trend potassium - check ecg - discussed with ER - discussed with medical team - [place] Ba
--- NOTE | 2018-05-07 18:21 | PN ---
Teaching Attending Note Name of Resident: Jorgito Brian ATTENDING PHYSICIAN STATEMENT I saw and evaluated the patient. I reviewed the resident's note and discussed the case with the resident. I agree with the resident's findings and plan as documented. CC: Sent frm Dr. Ba's office for hyperkalemia 6.6 HPI : 72 y/o lady with h/.o DM , HTN, HLP, and CKD 4 who was sent by her health promotion specialist for evaluation of her hyperkalemia She has CKD and sees Dr. Ba routinely q 2 months. she had seen him yesterday and blod work was done. she was called for K of 6.6 . she denies any recent change in her diet , or recent change in her medications . Per renal she is on elanapril , but she does not recall her meds. denies any SOB, CP , palpitations , muscle ramps, weakness , fatigue or MCKEON . no weakness , numbness or tingling. She has been drinking a lot of Soda recently . she has DM , recently meds changed from Levemir to Tresiba 20 units HS. she is supposed to use SSI 5-10 units before each meal but she does once daily. BGM at home can be as high as 400-500. In ER , she had insulin, Kayeksalate, and acalcium. EKG showed sinus rhythm with no peaked TW and with L axis ( old ) No BM in ER yet OBJECTIVE: NAD , pleasant and cooperative HEENT: EOMI, round equal pupils , reactive to light, no facial droop. MMM, no LAP in neck CV: RRR, NO MRG Lungs: CATB Abd: soft, NT, ND , NL BS . Ext: no edema. no erythema , calluses on L sole . no fungal infection in toe webs Neuro : EOMI, round equal pupils , reactive to light, no facial droop. tongue at mid line . strength 5/5 in upper and lower extremities proximally and distally . ASSESSMENT AND PLAN: 72 y/o lady with h/o DM , HTN, HLP, and CKD 4 who was sent by her health promotion specialist for evaluation of her hyperkalemia. 1- Hyperkalemia : likely due to CKD, and on ACEI. K 5.3 after treatment in ER No EKG changes. - Hold ACEI - IVF - repeat K over night - monitor 2- HTN: - hold ACEI - start norvasc in mean time - resident to obtain med list. 3- DM: uncontrolled at home - start levemir in HS - SSI 4- h/o HLP: during previous admissions , was on statin.will confirm 5- CKD 4:stable Cr at base line . f/u as outpt 6- Normocytic anemia: chronic . out pt f/u DVT PX
--- NOTE | 2018-05-07 18:25 | HP ---
CHIEF COMPLAINT: hyperkalemia HISTORY OF PRESENT ILLNESS: 72 year old female with a history of HTN, DM, and CKD stage III/IV presents to the hospital for hyperkalemia found at an outpatient visit to Dr. Ba's office (nephro). Patient currently has no complaints - denies chest pain, SOB, nausea, vomiting, diarrhea, fevers, chills, palpitations, abdominal pain, fatigue, weakness. Reports that she does not know if her potassium was elevated in the past. ER course was notable for: (1) K 6.6 (2) (3) Recent Travel: denies PAST MEDICAL HISTORY: HTN, DM, CKD PAST SURGICAL HISTORY: denies Social History: Smoking: current smoker of 55 years, down to 5 cigs/day Alcohol: former heavy Drugs: former Family History: Allergies sulfamethoxazole [From Bactrim] Allergy (Verified 05/07/18 12:56) trimethoprim [From Bactrim] Allergy (Verified 05/07/18 12:56) HOME MEDICATIONS: Home Medications Medication Instructions Recorded Amlodipine Besylate 5 mg PO DAILY 05/07/18 Insulin Degludec [Tresiba 20 unit SQ HS 05/07/18 Flextouch U-100] Insulin Lispro [Humalog] 0 unit SQ ASDIR 05/07/18 Linagliptin [Tradjenta] 5 mg PO DAILY 05/07/18 Lipase/Protease/Amylase [Creon Dr 1 each PO AC 05/07/18 36,000 Units Capsule] Metoprolol Succinate [Toprol Xl] 25 mg PO DAILY 05/07/18 Pregabalin [Lyrica] 100 mg PO BID 05/07/18 REVIEW OF SYSTEMS CONSTITUTIONAL: Absent: fever, chills, diaphoresis, generalized weakness, malaise, loss of appetite, weight change HEENT: Absent: rhinorrhea, nasal congestion, throat pain, throat swelling, difficulty swallowing, mouth swelling, ear pain, eye pain, visual changes CARDIOVASCULAR: Absent: chest pain, syncope, palpitations, irregular heart rate, lightheadedness , peripheral edema RESPIRATORY: Absent: cough, shortness of breath, dyspnea with exertion, orthopnea, wheezing, stridor, hemoptysis GASTROINTESTINAL: Absent: abdominal pain, abdominal distension, nausea, vomiting, diarrhea, constipation, melena, hematochezia GENITOURINARY: Absent: dysuria, frequency, urgency, hesitancy, hematuria, flank pain, genital pain MUSCULOSKELETAL: Absent: myalgia, arthralgia, joint swelling, back pain, neck pain SKIN: Absent: rash, itching, pallor HEMATOLOGIC/IMMUNOLOGIC: Absent: easy bleeding, easy bruising, lymphadenopathy, frequent infections ENDOCRINE: Absent: unexplained weight gain, unexplained weight loss, heat intolerance, cold intolerance NEUROLOGIC: Absent: headache, focal weakness or paresthesias, dizziness, unsteady gait, seizure, mental status changes, bladder or bowel incontinence PSYCHIATRIC: Absent: anxiety, depression, suicidal or homicidal ideation, hallucinations. PHYSICAL EXAMINATION Vital Signs - 24 hr 05/07/18 05/07/18 12:52 15:19 Temperature 97.9 F 97.9 F Pulse Rate 102 H Pulse Rate [ 87 Left Radial] Respiratory 17 18 Rate Blood Pressure 134/82 Blood Pressure 149/93 [Left Arm] O2 Sat by Pulse 98 100 Oximetry (%) GENERAL: A&Ox3, no acute distress EYES: PERRLA, EOMI ENT: Moist mucus membranes NECK: No JVD LUNGS: CTA, no wheezes HEART: RRR, no murmurs ABDOMEN: Soft, nontender, BS present MUSCULOSKELETAL: No CVA Tenderness EXTREMITIES: 2+ pulses, no edema. NEUROLOGICAL: Cranial nerves II-XII intact. Laboratory Results - last 24 hr 05/07/18 05/07/18 05/07/18 13:50 13:50 16:46 WBC 8.3 RBC 3.77 Hgb 10.6 L Hct 33.6 MCV 89.2 MCH 28.1 MCHC 31.5 L RDW 16.2 H Plt Count 155 D MPV 9.6 Absolute Neuts (auto) 4.8 Neutrophils % 57.6 D Lymphocytes % 30.2 D Monocytes % 9.2 Eosinophils % 2.4 Basophils % 0.6 Nucleated RBC % 0 Sodium 141 Potassium 6.3 H* 5.6 H Chloride 118 H Carbon Dioxide 18 L Anion Gap 5 L BUN 36 H Creatinine 1.7 H Creat Clearance w eGFR 29.54 Random Glucose 88 Calcium 8.6 Phosphorus 4.3 Magnesium 2.1 Total Bilirubin 0.2 AST 24 ALT 24 Alkaline Phosphatase 243 H Total Protein 7.5 Albumin 3.9 ASSESSMENT/PLAN: 72 year old female with a history of HTN, DM, and CKD stage III/IV presents to the hospital for hyperkalemia #Hyperkalemia: could be related to a consequence of chronic kidney disease, patient is not on diuretics, was previously on LILA -d/w dr. Ba -1/2 NS @ 75cc/hr -given insulin/D50 in ED -given kayexalate in ED -given calcium gluconate in ED -EKG NSR w/ LAD, no T wave changes or ST segment abnormalities, no repolarization abnormalities #Hypertension: patient is mildly hypertensive -held enalapril due to CKD -raised home amlodipine to 10mg -continue home toprol XL 25 PO daily #Diabetes Mellitus: glucose controlled -levemir 20 HS -ISS -BGMs #CKD: chronic -creatinine is at baseline -dr. Ba is following -1/2 NS @ 75cc/hr #FEN -1/2 NS @ 75cc/hr -electrolytes normal -diabetic/low NA diet #Prophylaxis -heparin #Disposition -admit obs Visit type - Emergency Visit Emergency Visit: Yes ED Registration Date: 05/07/18 Care time: The patient presented to the Emergency Department on the above date and was hospitalized for further evaluation of their emergent condition. - New Patient This patient is new to me today: Yes Date on this admission: 05/07/18 - Critical Care Critical Care patient: No
--- NOTE | 2018-05-07 18:26 | HOSP ---
Subjective - Review of Symptoms Events since last encounter: repeat potassium 5.6 Second repeat 5.1 -will repeat in AM Physical Examination Vital Signs: Vital Signs Temperature 97.9 F 05/07/18 15:19 Pulse Rate 87 05/07/18 15:19 Respiratory Rate 18 05/07/18 15:19 Blood Pressure 149/93 05/07/18 15:19 O2 Sat by Pulse Oximetry (%) 100 05/07/18 15:19 Labs: CBC, BMP 05/07/18 13:50 05/07/18 16:46 Visit type - Emergency Visit Emergency Visit: Yes ED Registration Date: 05/07/18 Care time: The patient presented to the Emergency Department on the above date and was hospitalized for further evaluation of their emergent condition. - New Patient This patient is new to me today: Yes Date on this admission: 05/07/18 - Critical Care Critical Care patient: No
[2018-05-07] MEDS ORDERED: INSULIN (LEVEMIR) 100 UNITS/ML UNITS SQ SCH (22:00)
[2018-05-07] MEDS: INSULIN SLIDING SCALE (NOVOLOG) 1 VIAL SQ SCH (22:18)
[2018-05-07] MEDS: PREGABALIN 100 MG CAPSULE PO SCH (22:19)
[2018-05-07] MEDS: HEPARIN NA (PORCINE) 5,000 UNITS/ML 1ML VIAL SQ SCH (22:19)
[2018-05-08] MEDS: INSULIN SLIDING SCALE (NOVOLOG) 1 VIAL SQ SCH ×2 (06:15→11:50)
[2018-05-08] MEDS: HEPARIN NA (PORCINE) 5,000 UNITS/ML 1ML VIAL SQ SCH ×2 (06:15→14:04)
--- NOTE | 2018-05-08 06:24 | PN ---
Physical Exam: SUBJECTIVE: Patient seen and examined at bedside this morning. She is resting comfortably in bed. Denies any acute complaints today. Denies headaches, lightheadedness, loss of consciousness, falls, fevers, chills, shortness of breath, chest pain, palpitations, abdominal pain, nausea, vomiting, diarrhea, constipation OBJECTIVE: Vital Signs Period Temp Pulse Resp BP Sys/Villareal Pulse Ox Last 24 Hr 97.6 F-97.9 F 87-991 17-20 125-149/61-93 98-100 GENERAL: The patient is awake, alert, and fully oriented, in no acute distress. HEAD: Normal with no signs of trauma. EYES: PERRL, extraocular movements intact, sclera anicteric, conjunctiva clear. ENT: Oropharynx clear without exudates, erythema, or lesions. Moist mucous membranes. NECK: Trachea midline, full range of motion. Supple without lymphadenopathy LUNGS: Good inspiratory effort, and air entry. Breath sounds equal, clear to auscultation bilaterally. No wheezes, no crackles b/l. No accessory muscle use. HEART: Regular rate and rhythm, S1, S2 without murmur, rub or gallop. ABDOMEN: Soft, nontender, nondistended, normoactive bowel sounds, no guarding, no rebound tenderness, no hepatosplenomegaly. EXTREMITIES: 2+ radial and dorsalis pedis pulses b/l. Warm, well-perfused, no lower extremity edema b/l. NEUROLOGICAL: Cranial nerves II through XII grossly intact. Normal speech. Strength 5/5 b/l upper and lower extremities. PSYCH: Normal mood, normal affect. SKIN: Warm, dry, no rashes or lesions noted. Laboratory Results - last 24 hr 05/07/18 05/07/18 05/07/18 13:50 13:50 16:46 WBC 8.3 RBC 3.77 Hgb 10.6 L Hct 33.6 MCV 89.2 MCH 28.1 MCHC 31.5 L RDW 16.2 H Plt Count 155 D MPV 9.6 Absolute Neuts (auto) 4.8 Neutrophils % 57.6 D Lymphocytes % 30.2 D Monocytes % 9.2 Eosinophils % 2.4 Basophils % 0.6 Nucleated RBC % 0 Sodium 141 Potassium 6.3 H* 5.6 H Chloride 118 H Carbon Dioxide 18 L Anion Gap 5 L BUN 36 H Creatinine 1.7 H Creat Clearance w eGFR 29.54 POC Glucometer Random Glucose 88 Calcium 8.6 Phosphorus 4.3 Magnesium 2.1 Total Bilirubin 0.2 AST 24 ALT 24 Alkaline Phosphatase 243 H Total Protein 7.5 Albumin 3.9 05/07/18 05/07/18 19:07 22:17 WBC RBC Hgb Hct MCV MCH MCHC RDW Plt Count MPV Absolute Neuts (auto) Neutrophils % Lymphocytes % Monocytes % Eosinophils % Basophils % Nucleated RBC % Sodium Potassium 5.1 Chloride Carbon Dioxide Anion Gap BUN Creatinine Creat Clearance w eGFR POC Glucometer 101 Random Glucose Calcium Phosphorus Magnesium Total Bilirubin AST ALT Alkaline Phosphatase Total Protein Albumin Active Medications Generic Name Dose Route Start Last Admin Trade Name Freq PRN Reason Stop Dose Admin Amlodipine Besylate 10 mg 05/08/18 10:00 Norvasc - PO DAILY [facility] Heparin Sodium (Porcine) 5,000 unit 05/07/18 22:00 05/08/18 06:15 Heparin - SQ 5,000 unit TID [facility] Administration Influenza Virus Vaccine Quadrival 60 mcg 05/08/18 08:00 Flulaval Quad [id number] IM 05/08/18 08:01 .ONCE ONE Insulin Aspart 1 vial 05/07/18 22:00 05/08/18 06:15 Novolog Vial Sliding Scale - SQ Not Given ACHS [facility] Protocol Insulin Detemir 20 units 05/07/18 22:00 05/07/18 22:18 Levemir Vial SQ Not Given HS [facility] Metoprolol Succinate 25 mg 05/08/18 10:00 Toprol Xl - PO DAILY [facility] Pancrelipase 1 cap 05/08/18 08:00 John Figueroa 36,000 Units Capsule PO TIDCM [facility] Pregabalin 100 mg 05/07/18 22:00 05/07/18 22:19 Lyrica - PO 100 mg BID [facility] Administration ASSESSMENT/PLAN:
[2018-05-08 07:12] LABS: HEMATOCRIT 32.6 % (32.4-45.2); MCH 27.5 pg (25.7-33.7); MCHC 30.7 g/dl (32.0-36.0); MEAN CELL VOLUME 89.7 fl (80-96); PLATELET COUNT 135 K/MM3 (134-434); RBC 3.64 M/mm3 (3.60-5.2); RDW 15.7 % (11.6-15.6); WHITE BLOOD COUNT 9.1 K/mm3 (4.0-10.0)
[2018-05-08 07:34] LABS: ANION GAP 7 MMOL/L (8-16); BLOOD UREA NITROGEN 32 mg/dL (7-18); CALCIUM 8.7 mg/dL (8.5-10.1); CHLORIDE 119 mmol/L (98-107); CO2 18 mmol/L (21-32); CREATININE 1.4 mg/dL (0.55-1.3); GLUCOSE,RANDOM 72 mg/dL (74-106); MAGNESIUM 1.7 mg/dL (1.8-2.4); PHOSPHOROUS 3.7 mg/dL (2.5-4.9); SODIUM 144 mmol/L (136-145)
[2018-05-08] MEDS: LIPASE/PROTEASE/AMYLASE 36,000 UNIT CAPSULE PO SCH ×2 (08:54→11:51)
[2018-05-08] MEDS: PREGABALIN 100 MG CAPSULE PO SCH (09:17)
--- NOTE | 2018-05-08 09:30 | EKG ---
Test Reason : Blood Pressure : / mmHG Vent. Rate : 083 BPM Atrial Rate : 083 BPM P-R Int : 148 ms QRS Dur : 082 ms QT Int : 366 ms P-R-T Axes : 059 -15 036 degrees QTc Int : 430 ms NORMAL SINUS RHYTHM NORMAL ECG WHEN COMPARED WITH ECG OF 13-MAY-2017 20:42, NO SIGNIFICANT CHANGE WAS FOUND Confirmed by ANAHI PAUL MD ([id number]) on 05/08/2018 9:30:00 AM Referred By: Confirmed By:ANAHI PAUL MD
[2018-05-08] MEDS ORDERED: FLU VACCINE QUAD 60 MCG/0.5 ML (MDV 18-19) IM ONE (10:00)
[2018-05-08] MEDS ORDERED: metoPROLOL SUCCINATE 25 MG TAB.SR.24H (FP) PO SCH (10:00)
[2018-05-08] MEDS ORDERED: amLODIPine BESYLATE 10 MG TABLET (FP) PO SCH (10:00)
[2018-05-08] MEDS ORDERED: amLODIPine BESYLATE 5 MG TABLET (FP) PO SCH ×2 (10:00)
[2018-05-08 12:11] VITALS: BP 128/76; PULSE 90; TEMP 98
--- NOTE | 2018-05-08 14:20 | PN ---
Teaching Attending Note Name of Resident: Lisandro Mcmahon ATTENDING PHYSICIAN STATEMENT I saw and evaluated the patient. I reviewed the resident's note and discussed the case with the resident. I agree with the resident's findings and plan as documented. SUBJECTIVE: No fever ro chills. No abd pain , no CP . OBJECTIVE: NAD , pleasant and cooperative CV: RRR, NO MRG Lungs: CATB Ext: no edema. no erythema ASSESSMENT AND PLAN: 72 y/o lady with h/o DM , HTN, HLP, and CKD 4 who was sent by her clay processing labourer for evaluation of her hyperkalemia. 1- Hyperkalemia : likely due to CKD, and on ACEI. K is 5 today aftter big BM last night will not resume Enalapril at dc blood work on Friday to be faxed to Dr. Ba 2- HTN: -cont increased dose of norvasc and metoprolol after dc No ACEI 3- DM: cont her home regimen after dc 4- CKD 4:stable Cr at base line . f/u as outpt 5- Normocytic anemia: chronic . out pt f/u dc home today .
[2018-05-08] MEDS ORDERED: MAGNESIUM OXIDE 400 MG TABLET (FP) PO ONE (15:31)
--- NOTE | 2018-05-08 15:34 | PN ---
Progress Note, Physician History of Present Illness: Pt seen and examine at bedside. She is awake and alert. She is eager to go home. - Current Medication List Current Medications: Active Medications Amlodipine Besylate (Norvasc -) 10 mg PO DAILY [facility] Last Admin: 05/08/18 09:17 Dose: 10 mg Heparin Sodium (Porcine) (Heparin -) 5,000 unit SQ TID [facility] Last Admin: 05/08/18 14:04 Dose: Not Given Insulin Aspart (Novolog Vial Sliding Scale -) 1 vial SQ ACHS [facility]; Protocol Last Admin: 05/08/18 11:50 Dose: Not Given Insulin Detemir (Levemir Vial) 20 units SQ HS [facility] Last Admin: 05/07/18 22:18 Dose: Not Given Metoprolol Succinate (Toprol Xl -) 25 mg PO DAILY [facility] Last Admin: 05/08/18 09:17 Dose: 25 mg Pancrelipase (Creon Dr 36,000 Units Capsule) 1 cap PO TIDCM [facility] Last Admin: 05/08/18 11:51 Dose: 1 cap Pregabalin (Lyrica -) 100 mg PO BID [facility] Last Admin: 05/08/18 09:17 Dose: 100 mg - Objective Vital Signs: Vital Signs Temperature 98 F 05/08/18 09:00 Pulse Rate 90 05/08/18 09:00 Respiratory Rate 18 05/08/18 09:00 Blood Pressure 128/76 05/08/18 09:00 O2 Sat by Pulse Oximetry (%) 97 05/08/18 09:00 Constitutional: Yes: Calm Eyes: Yes: Conjunctiva Clear HENT: Yes: Atraumatic Cardiovascular: Yes: S1, S2 Respiratory: Yes: CTA Bilaterally Gastrointestinal: Yes: WNL Genitourinary: Yes: WNL Musculoskeletal: Yes: WNL Edema: No Neurological: Yes: Oriented Psychiatric: Yes: Oriented Labs: CBC, BMP 05/08/18 05:30 05/08/18 05:30 Problem List - Problems (1) CKD (chronic kidney disease) Code(s): N18.9 - CHRONIC KIDNEY DISEASE, UNSPECIFIED (2) Hyperkalemia Code(s): E87.5 - HYPERKALEMIA (3) Alcoholic cirrhosis of liver Code(s): K70.30 - ALCOHOLIC CIRRHOSIS OF LIVER WITHOUT ASCITES (4) Chronic pancreatitis Code(s): K86.1 - OTHER CHRONIC PANCREATITIS (5) HTN (hypertension) Code(s): I10 - ESSENTIAL (PRIMARY) HYPERTENSION (6) Pancreatic insufficiency Code(s): K86.8 - OTHER SPECIFIED DISEASES OF PANCREAS * DO NOT USE * (7) Smoking Code(s): F17.200 - NICOTINE DEPENDENCE, UNSPECIFIED, UNCOMPLICATED Assessment/Plan Current Medications Generic Name Dose Route Start Last Admin Trade Name Freq PRN Reason Stop Dose Admin Amlodipine Besylate 10 mg 05/08/18 10:00 05/08/18 09:17 Norvasc - PO 10 mg DAILY [facility] Administration Heparin Sodium (Porcine) 5,000 unit 05/07/18 22:00 05/08/18 14:04 Heparin - SQ Not Given TID [facility] Insulin Aspart 1 vial 05/07/18 22:00 05/08/18 11:50 Novolog Vial Sliding Scale - SQ Not Given ACHS [facility] Protocol Insulin Detemir 20 units 05/07/18 22:00 05/07/18 22:18 Levemir Vial SQ Not Given HS [facility] Magnesium Oxide 400 mg 05/08/18 15:31 Mag-Ox - PO 05/08/18 15:32 ONCE ONE Metoprolol Succinate 25 mg 05/08/18 10:00 05/08/18 09:17 Toprol Xl - PO 25 mg DAILY [facility] Administration Pancrelipase 1 cap 05/08/18 08:00 05/08/18 11:51 Creon 36,000 Units Capsule PO 1 cap TIDCM [facility] Administration Pregabalin 100 mg 05/07/18 22:00 05/08/18 09:17 Lyrica - PO 100 mg BID [facility] Administration Impression 1. hyperkalemia 2. CKD 3. pancreatic insufficiency 4. hx etoh abuse 5. htn 6. DM Plan - potassium improving - replace mag - do not restart lisinopril, explained to pt as well - bp is stable - will need outpt follow up Dr Ba
--- NOTE | 2018-05-08 16:13 | DS ---
Physical Exam: SUBJECTIVE: Patient seen and examined at bedside this morning. She is resting comfortably in bed. Denies any acute complaints today. Denies headaches, lightheadedness, loss of consciousness, falls, fevers, chills, shortness of breath, chest pain, palpitations, abdominal pain, nausea, vomiting, diarrhea, constipation OBJECTIVE: Vital Signs Period Temp Pulse Resp BP Sys/Villareal Pulse Ox Last 24 Hr 97.7 F-98 F 90-991 18-20 128-135/74-82 97-100 PHYSICAL EXAM GENERAL: The patient is awake, alert, and fully oriented, in no acute distress. HEAD: Normal with no signs of trauma. EYES: PERRL, extraocular movements intact, sclera anicteric, conjunctiva clear. ENT: Oropharynx clear without exudates, erythema, or lesions. Moist mucous membranes. NECK: Trachea midline, full range of motion. Supple without lymphadenopathy LUNGS: Good inspiratory effort, and air entry. Breath sounds equal, clear to auscultation bilaterally. No wheezes, no crackles b/l. No accessory muscle use. HEART: Regular rate and rhythm, S1, S2 without murmur, rub or gallop. ABDOMEN: Soft, nontender, nondistended, normoactive bowel sounds, no guarding, no rebound tenderness, no hepatosplenomegaly. EXTREMITIES: 2+ radial and dorsalis pedis pulses b/l. Warm, well-perfused, no lower extremity edema b/l. NEUROLOGICAL: Cranial nerves II through XII grossly intact. Normal speech. Strength 5/5 b/l upper and lower extremities. PSYCH: Normal mood, normal affect. SKIN: Warm, dry, no rashes or lesions noted. LABS Laboratory Results - last 24 hr 05/07/18 05/07/18 05/07/18 16:46 19:07 22:17 WBC RBC Hgb Hct MCV MCH MCHC RDW Plt Count MPV Sodium Potassium 5.6 H 5.1 Chloride Carbon Dioxide Anion Gap BUN Creatinine Creat Clearance w eGFR POC Glucometer 101 Random Glucose Calcium Phosphorus Magnesium 05/08/18 05/08/18 05/08/18 05:30 05:30 05:42 WBC 9.1 RBC 3.64 Hgb 10.0 L Hct 32.6 MCV 89.7 MCH 27.5 MCHC 30.7 L RDW 15.7 H Plt Count 135 MPV 10.0 Sodium 144 Potassium 5.0 Chloride 119 H Carbon Dioxide 18 L Anion Gap 7 L BUN 32 H Creatinine 1.4 H Creat Clearance w eGFR 36.96 POC Glucometer 82 Random Glucose 72 L Calcium 8.7 Phosphorus 3.7 Magnesium 1.7 L 05/08/18 11:50 WBC RBC Hgb Hct MCV MCH MCHC RDW Plt Count MPV Sodium Potassium Chloride Carbon Dioxide Anion Gap BUN Creatinine Creat Clearance w eGFR POC Glucometer 103 Random Glucose Calcium Phosphorus Magnesium HOSPITAL COURSE: Date of Admission:05/07/18 Date of Discharge: 05/08/18 patient is a 72 year old female with history of hypertension, diabetes, and chronic kidney disease presented from Dr. Ba;s office with potassium of 6.3. She was asymptomatic. EKG showed normal sinus rhythm with left axis, and no ST changes noted upon admission. She was started on IV fluids, Insulin, D50, kayexalate, and calcium gluconate. Her enalapril was considered as a possible cause of the elevated potassium and was stopped. Amlodipine increased to 10mg daily. Toprol xl continued. She admits using humalog, and a sliding scale was provided for accurate insulin administration. Discharged home to follow up with instruction to follow up with primary care physician within next 2-3 days as soon as possible to repeat a BMP to follow up potassium and fax results to Dr. Ba. Fax number provided to patient. Also to follow up with Dr. Ba within next 2-3 days. Discharged home Minutes to complete discharge: 35 Discharge Summary Reason For Visit: HYPERKALEMIA Condition: Stable - Instructions Diet, Activity, Other Instructions: You were admitted with dangerously elevated potassium at 6.3. Your EKG did not show any abnormalities associated with the elevated potassium level. You were treated with medications to lower the potassium. We have stopped medication Enalapril as it may have contributed to the elevated potassium. Do NOT take Enalapril any more. Therefore, we have raised the dosage of the Amlodipine to 10mg daily. You will continue taking your insulin medications as directed. For the Insulin, please see below the Humalog insulin sliding scale before each meal : You will check your blood sugars before each meal, and before bed. If the blood sugar is between 150-200 take two units of insulin If the blood sugar is between 201-250 take four units of insulin If the blood sugar is between 251-300 take six units of insulin If the blood sugar is between 301-350 take eight units of insulin If the blood sugar is between 351-400 take ten units of insulin If the blood sugar is above 400 take 12 units of insulin, and return to the nearest emergency department as soon as possible. Continue taking your other medications as directed. It is important that you follow up with your primary care physician (Dr. Winkler) as well as black top roller Dr. Ba within the next 2-3 days. At that appointment you will need blood test to follow up your potassium level. Please return to the nearest emergency department if you experience any lightheadedness, falls, loss of consciousness, chest pain, palpitations, shortness of breath. prescription for blood work on Friday , to be faxed to Dr. Ba Referrals: Sarath Winkler PA [Primary Care Provider] - 1 Week Willard Ba MD [Staff Physician] - 05/11/18 Disposition: HOME - Home Medications Comprehensive Discharge Medication List: Ambulatory Orders Insulin Degludec [Tresiba Flextouch U-100] 20 unit SQ HS 05/07/18 Linagliptin [Tradjenta] 5 mg PO DAILY 05/07/18 Lipase/Protease/Amylase [John Figueroa 36,000 Units Capsule] 1 each PO AC 05/07/18 Metoprolol Succinate [Toprol Xl] 25 mg PO DAILY 05/07/18 Pregabalin [Lyrica] 100 mg PO BID 05/07/18 Amlodipine Besylate [Norvasc -] 10 mg PO DAILY 30 Days #30 tablet 05/08/18 Insulin Lispro [Humalog] 100 unit SQ ACHS 30 Days ml 05/08/18 Miscellaneous Medical Supply [Outpatient Order] 1 each ASDIR #1 misc This patient is new to me today: Yes Date on this admission: 05/08/18 Emergency Visit: Yes ED Registration Date: 05/07/18 Care time: The patient presented to the Emergency Department on the above date and was hospitalized for further evaluation of their emergent condition. Critical Care patient: No - Discharge Referral Referred to [facility] Med P.C.: No
== END 2018-05-08 15:46 | disposition home or self-care (01) ==
LOC: JER 12:42 → JERBED 15:57 → J4W 20:29
PROVIDERS: ADMIT Internal Medicine; ATTEND Internal Medicine
PROC: 3E033VG Introduction of Insulin into Peripheral Vein, Percutaneous Approach (ICD-10-PCS; principal; 2018-05-07)
PROC: 3E033GC Introduction of Other Therapeutic Substance into Peripheral Vein, Percutaneous Approach (ICD-10-PCS; 2018-05-07)
PROC: 3E0337Z Introduction of Electrolytic and Water Balance Substance into Peripheral Vein, Percutaneous Approach (ICD-10-PCS; 2018-05-07)
PROC: 3E0234Z Introduction of Serum, Toxoid and Vaccine into Muscle, Percutaneous Approach (ICD-10-PCS; 2018-05-07)
DX: E87.5 Hyperkalemia (principal); E11.22 Type 2 diabetes mellitus with diabetic chronic kidney disease; I12.9 Hypertensive chronic kidney disease with stage 1 through stage 4 chronic kidney disease, or unspecified chronic kidney disease; F17.210 Nicotine dependence, cigarettes, uncomplicated; N18.4 Chronic kidney disease, stage 4 (severe); Z79.4 Long term (current) use of insulin; E78.5 Hyperlipidemia, unspecified; R00.0 Tachycardia, unspecified; K70.30 Alcoholic cirrhosis of liver without ascites; D64.89 Other specified anemias; Z88.1 Allergy status to other antibiotic agents; Z23 Encounter for immunization
CPT/HCPCS: 36415; 80048; 80053; 82962; 83735; 84100; 84132; 85025; 85027; 90471; 90688; 93005; 93010; 96361; 96374; 96375; 99282-25; G0378; J1644; J7030

== ENCOUNTER 2018-05-21 08:29 | Observation (INO) | payer OTHER ==
--- NOTE | 2018-05-21 09:07 | PDOC ---
History of Present Illness - General Chief Complaint: Allergic Reaction Stated Complaint: LAB VARIANCE (PCP SENT) Time Seen by Provider: 05/21/18 08:41 History Source: Patient Exam Limitations: No Limitations - History of Present Illness Initial Comments: 05/21/18 09:06 72 year old with history of DM and HTN who presents w/ K of 7 found during routine visit w/ Dr. Ba 1 day ago. The patient has been asymptomatic. The patient was admitted to this hospital 1 week ago for K of 6.6. The patient was advised to stop ACEI medication upon discharge for possible resolution of hyperkalemia. The patient states that she has not taken her ACEI medication. The patient denies any chest pain, palpitations, shortness of breath, nausea, vomiting, fevers, headaches, diarrhea, constipation, dysuria or blood in urine or stool. The patient has no other complaints at bedside. PMHX: as in HPI Meds: see below Allergies: sulfamethoxazole, trimethoprim Tob: none Etoh: none Rec drugs: none Past History - Past Medical History Allergies/Adverse Reactions: Allergies Allergy/AdvReac Type Severity Reaction Status Date / Time sulfamethoxazole Allergy Verified 05/21/18 08:30 [From Bactrim] trimethoprim [From Bactrim] Allergy Verified 05/21/18 08:30 Home Medications: Ambulatory Orders Linagliptin [Tradjenta] 5 mg PO DAILY 05/07/18 Lipase/Protease/Amylase [John Dr 36,000 Units Capsule] 1 each PO AC 05/07/18 Metoprolol Succinate [Toprol Xl] 25 mg PO DAILY 05/07/18 Pregabalin [Lyrica] 100 mg PO BID 05/07/18 Amlodipine Besylate [Norvasc -] 10 mg PO DAILY 30 Days #30 tablet 05/08/18 Anemia: Yes Asthma: No Cancer: No Cardiac Disorders: Yes CVA: No COPD: No CHF: No Dementia: No Diabetes: Yes GI Disorders: Yes (pancreatitis) Disorders: No HTN: Yes Hypercholesterolemia: Yes Liver Disease: No Seizures: No Thyroid Disease: No - Surgical History Abdominal Surgery: No Appendectomy: No Cardiac Surgery: No Cholecystectomy: No Lung Surgery: No Neurologic Surgery: No Orthopedic Surgery: No - Immunization History Immunization Up to Date: Yes - Suicide/Smoking/Psychosocial Hx Smoking History: Never smoked Have you smoked in the past 12 months: Yes Number of Cigarettes Smoked Daily: 5 Information on smoking cessation initiated: No 'Breaking Loose' booklet given: 05/08/14 Hx Alcohol Use: No Drug/Substance Use Hx: No Substance Use Type: None Hx Substance Use Treatment: No Review of Systems - Review of Systems Able to Perform ROS?: Yes Is the patient limited Irish proficient: No Constitutional: No: Chills, Diaphoresis, Fever HEENTM: No: Blurred Vision, Tinnitus Respiratory: No: Cough, Orthopnea, Shortness of Breath Cardiac (ROS): No: Chest Pain, Palpitations, Syncope ABD/GI: No: Constipated, Diarrhea, Nausea, Vomiting : No: Burning, Dysuria, Hematuria Neurological: No: Headache, Numbness, Tingling *Physical Exam - Vital Signs Last Vital Signs Temp Pulse Resp BP Pulse Ox 97 F L 93 H 16 127/73 100 05/21/18 08:30 05/21/18 08:30 05/21/18 08:30 05/21/18 08:30 05/21/18 08:30 ED Treatment Course - LABORATORY CBC & Chemistry Diagram: 05/21/18 09:15 05/21/18 12:40 Medical Decision Making - Medical Decision Making 72 year old with history of DM and HTN who presents w/ K of 7 found during routine visit w/ Dr. Ba 1 day ago. The patient has been asymptomatic. The patient was admitted to this hospital 1 week ago for K of 6.6. The patient was advised to stop ACEI medication upon discharge for possible resolution of hyperkalemia. The patient states that she has not taken her ACEI medication. The patient denies any chest pain, palpitations, shortness of breath, nausea, vomiting, fevers, headaches, diarrhea, constipation, dysuria or blood in urine or stool. The patient has no other complaints at bedside. ED Course: Patient with hyperkalemia 1 day ago. Stable in no acute distress, pleasant at bedside. K: 6.3 Dr. Ba contacted. Advised full hyperK cocktail. Ca gluconate, dextrose, insulin, sodium bicarb given Repeat CBC with K of 4.9 and glucose of 33 Patient given food tray. POC glucose 99. Patient stable and feels well. Patient with recurrent hyperkalemia. As the etiology of hyperkalemia is unclear as patient reports to have been compliant with not taking the ACEI. This patient will require admission for further workup and evaluation. Admitting team contacted. They will accept patient. *DC/Admit/Observation/Transfer Diagnosis at time of Disposition: Hyperkalemia - Discharge Dispostion Condition at time of disposition: Stable Decision to Admit order: Yes - Referrals - Patient Instructions - Post Discharge Activity
[2018-05-21] MEDS ORDERED: SODIUM CHLORIDE 1,000 ML IV SCH (09:15)
--- NOTE | 2018-05-21 09:23 | PDOC ---
Attending Attestation - Resident Resident Name: Desire Tejeda - ED Attending Attestation I have performed the following: I have examined & evaluated the patient, The case was reviewed & discussed with the resident, I agree w/resident's findings & plan, Exceptions are as noted - HPI HPI: 05/21/18 11:19 72 years old past medical history significant for diabetes hypertension presents to the ED with elevated potassium patient with no complaints at this time. - Physicial Exam PE: 05/21/18 11:19 Vitals: Triage Vital signs reviewed General Appearance: no acute distress, well nourished well developed, Head: Atraumatic, Neck: Supple;No Nucal rigidity Chest Wall: Nontender Cardiac: Regular rate and rhythym, no murmurs, no rubs, no gallops, Lungs: Clear to auscultation bilateral, good air movement bilaterally, Abdomen: Soft, non distended, normal bowel sounds, non tender to palpation Extremities: Full range of motion to all extremities, no cyanosis, clubbing, or edema Skin: Warm and dry, no rashes or lesions, no rash, no petechiae Psych: normal mood, normal affect - Medical Decision Making 05/21/18 13:27 Potassium noted to be elevated at 6.3 case discussed with patient's plate maker. Recommends observation for correction of the left right abnormality further management Hyperkalemia cocktail ordered patient to be observed on observation for further management. Heart Score/ECG Review - ECG Impressions Comment:: 05/21/18 13:27 No peaked T waves no NM prolongation no widening QRS
[2018-05-21 09:38] LABS: BASO % 0.9 % (0-2.0); EOS % 2.4 % (0-4.5); HEMATOCRIT 36.9 % (32.4-45.2); HEMOGLOBIN 11.4 GM/dL (10.7-15.3); LYMPH % 28.1 % (8-40); MCH 28.1 pg (25.7-33.7); MCHC 30.8 g/dl (32.0-36.0); MEAN PLT VOLUME 9.7 fl (7.5-11.1); MONO % 8.9 % (3.8-10.2); NEUT % 59.7 % (42.8-82.8); PLATELET COUNT 142 K/MM3 (134-434); RBC 4.06 M/mm3 (3.60-5.2); RDW 16.1 % (11.6-15.6); WHITE BLOOD COUNT 8.6 K/mm3 (4.0-10.0)
[2018-05-21 10:02] LABS: ALBUMIN 4.1 g/dl (3.4-5.0); ALK PHOS 255 U/L (45-117); ANION GAP 7 MMOL/L (8-16); BILIRUBIN,TOTAL 0.3 mg/dL (0.2-1); BLOOD UREA NITROGEN 32 mg/dL (7-18); CALCIUM 8.8 mg/dL (8.5-10.1); CHLORIDE 122 mmol/L (98-107); CO2 15 mmol/L (21-32); GLUCOSE,RANDOM 99 mg/dL (74-106); SGOT/AST 21 U/L (15-37); SGPT/ALT 28 U/L (13-61); SODIUM 144 mmol/L (136-145); TOT PROT 7.7 g/dl (6.4-8.2)
[2018-05-21 10:06] LABS: POTASSIUM 6.3 mmol/L (3.5-5.1)
[2018-05-21] MEDS ORDERED: CALCIUM GLUCONATE 10% - 1,000 MG/10 ML VIAL IVPUSH ONE (10:36)
[2018-05-21] MEDS ORDERED: DEXTROSE 50%-WATER - 25 GM/50 ML VIAL IVPUSH ONE ×2 (10:42→13:47)
[2018-05-21] MEDS ORDERED: INSULIN REGULAR HUMAN 100 UNITS/ML *VIAL IVPUSH ONE (10:42)
[2018-05-21] MEDS ORDERED: SODIUM BICARBONATE 8.4% 50 MEQ/50 ML DISP.SYRIN IVPUSH ONE (10:45)
[2018-05-21] MEDS ORDERED: SODIUM BICARBONATE 8.4% 50 MEQ/50 ML VIAL IV SCH (10:45)
[2018-05-21] MEDS ORDERED: SODIUM BICARBONATE 8.4% - 50 ML ONE (10:57)
[2018-05-21] MEDS ORDERED: DEXTROSE 50%-WATER 25 GM/50 ML DISP.SYRIN ONE ×2 (10:57→13:57)
[2018-05-21] MEDS ORDERED: INSULIN REGULAR HUMAN 100 UNITS/ML *VIAL ONE (10:58)
--- NOTE | 2018-05-21 11:44 | EKG ---
Test Reason : Blood Pressure : / mmHG Vent. Rate : 084 BPM Atrial Rate : 084 BPM P-R Int : 160 ms QRS Dur : 082 ms QT Int : 354 ms P-R-T Axes : 061 -19 044 degrees QTc Int : 418 ms NORMAL SINUS RHYTHM NORMAL ECG WHEN COMPARED WITH ECG OF 07-MAY-2018 14:11, NO SIGNIFICANT CHANGE WAS FOUND Confirmed by YAKOV TRONCOSO MD ([id number]) on 05/21/2018 11:44:02 AM Referred By: Confirmed By:YAKOV TRONCOSO MD
[2018-05-21] MEDS ORDERED: SODIUM POLYSTYRENE SULFONATE 15 GM/60 ML BOTTLE PO ONE (11:52)
[2018-05-21 12:03] LABS: URINE APPEARANCE CLEAR; URINE BILIRUBIN NEGATIVE (<2.0 mg/dL); URINE COLOR COLORLESS; URINE GLUCOSE (UA) NEGATIVE (NEGATIVE); URINE KETONE NEGATIVE (NEGATIVE); URINE LEUK ESTERASE 1+ (NEGATIVE); URINE NITRITE NEGATIVE (NEGATIVE); URINE PROTEIN NEGATIVE (NEGATIVE); URINE UROBILINOGEN NEGATIVE mg/dL (0.2-1.0)
[2018-05-21 12:19] LABS: EPI CELLS RARE /HPF (FEW)
--- NOTE | 2018-05-21 12:37 | PN ---
Teaching Attending Note Name of Resident: Lisandro Mcmahon ATTENDING PHYSICIAN STATEMENT I saw and evaluated the patient. I reviewed the resident's note and discussed the case with the resident. I agree with the resident's findings and plan as documented with exceptions below. SUBJECTIVE: 72 yof with PMhx of HTN, NIDDM, CKD stage II, Alcohol abuse (reportedly abstinent for 1.5 years), chronic pancreatitis from alcohol use, recently admitted to [facility] with hyperkalemia, d/luz maria ACEI, sent back by Dr. Ba today given reported potassium of 7. She was noted with K 6.3 in the ED. Patient denies using enalapril or high K diet. However reports home blood sugars, rage from 120s to 300s, more around 200s range. Has has h/o polyuria, polydypsia. Currently denies any fevers, chills, nausea, vomiting, diarrhea, decreased PO intake, dizziness, new medications or concerns. 12 point ROS done, neg except above OBJECTIVE: Vital Signs Period Temp Pulse Resp BP Sys/[place] Pulse Ox Last 24 Hr 97 F-97.1 F 88-93 16-16 127-128/70-73 100-100 Intake & Output 05/18/18 05/19/18 05/20/18 05/21/18 23:59 23:59 23:59 23:59 Weight 110 lb GENERAL: Awake, alert, and fully oriented, in no acute distress. HEAD: Normal with no signs of trauma. EYES: Pupils equal, round and reactive to light, extraocular movements intact, sclera anicteric, conjunctiva clear. No lid lag. EARS, NOSE, THROAT: Ears normal, nares patent, oropharynx clear without exudates. Moist mucous membranes. NECK: Normal range of motion, supple without lymphadenopathy, JVD, or masses. LUNGS: Breath sounds equal, clear to auscultation bilaterally. No wheezes, and no crackles. No accessory muscle use. HEART: S1S2 regular rate rhythm ABDOMEN: Soft, nontender, not distended, normoactive bowel sounds, no guarding, no rebound, no masses. N MUSCULOSKELETAL: Normal range of motion at all joints. No bony deformities or tenderness. No CVA tenderness. UPPER EXTREMITIES: 2+ pulses, warm, well-perfused. No cyanosis. No clubbing. No peripheral edema. LOWER EXTREMITIES: 2+ pulses, warm, well-perfused. No calf tenderness. No peripheral edema. NEUROLOGICAL: Cranial nerves II-XII intact. Normal speech. Gait deferred, facial symmetry, AAOX3, EOMI, PERRL PSYCHIATRIC: Cooperative. Good eye contact. Appropriate mood and affect. SKIN: Warm, dry, normal turgor, no rashes or lesions noted, normal capillary refill. Home Medications Medication Instructions Recorded Linagliptin [Tradjenta] 5 mg PO DAILY 05/07/18 Lipase/Protease/Amylase [Creon Dr 1 each PO AC 05/07/18 36,000 Units Capsule] Metoprolol Succinate [Toprol Xl] 25 mg PO DAILY 05/07/18 Pregabalin [Lyrica] 100 mg PO BID 05/07/18 Amlodipine Besylate [Norvasc -] 10 mg PO DAILY 30 Days #30 tablet 05/08/18 Active Medications Sodium Chloride (Normal Saline -) 1,000 mls @ 0 mls/hr IV ASDIR [facility] Last Admin: 05/21/18 09:20 Dose: 1,000 mls/hr Sodium Bicarbonate (Sodium Bicarbonate 8.4% -) 50 meq IV Q12H [facility] Last Admin: 05/21/18 11:02 Dose: 50 meq Laboratory Results - last 24 hr 05/21/18 05/21/18 05/21/18 09:15 09:15 09:29 WBC 8.6 RBC 4.06 Hgb 11.4 Hct 36.9 MCV 91.0 MCH 28.1 MCHC 30.8 L RDW 16.1 H Plt Count 142 MPV 9.7 Absolute Neuts (auto) 5.1 Neutrophils % 59.7 Lymphocytes % 28.1 Monocytes % 8.9 Eosinophils % 2.4 Basophils % 0.9 Nucleated RBC % 0 Sodium 144 Potassium 6.3 H* Chloride 122 H Carbon Dioxide 15 L Anion Gap 7 L BUN 32 H Creatinine 2.0 H Creat Clearance w eGFR 24.49 POC Glucometer 124.54417 Random Glucose 99 Calcium 8.8 Total Bilirubin 0.3 AST 21 ALT 28 Alkaline Phosphatase 255 H Total Protein 7.7 Albumin 4.1 Urine Color Urine Appearance Urine pH Ur Specific [place] Urine Protein Urine Glucose (UA) Urine Ketones Urine Blood Urine Nitrite Urine Bilirubin Urine Urobilinogen Ur Leukocyte Esterase Urine WBC (Auto) Urine RBC (Auto) Ur Epithelial Cells 05/21/18 11:13 WBC RBC Hgb Hct MCV MCH MCHC RDW Plt Count MPV Absolute Neuts (auto) Neutrophils % Lymphocytes % Monocytes % Eosinophils % Basophils % Nucleated RBC % Sodium Potassium Chloride Carbon Dioxide Anion Gap BUN Creatinine Creat Clearance w eGFR POC Glucometer Random Glucose Calcium Total Bilirubin AST ALT Alkaline Phosphatase Total Protein Albumin Urine Color Colorless Urine Appearance Clear Urine pH 5.0 Ur Specific [place] 1.008 L Urine Protein Negative Urine Glucose (UA) Negative Urine Ketones Negative Urine Blood Negative Urine Nitrite Negative Urine Bilirubin Negative Urine Urobilinogen Negative Ur Leukocyte Esterase 1+ H D Urine WBC (Auto) 2 Urine RBC (Auto) 1 Ur Epithelial Cells Rare EKG NSR no acute ST-T wave changes, unchanged from prior EKG ASSESSMENT AND PLAN: 72 yof with PMhx of HTN, NIDDM, CKD stage II, Alcohol abuse (reportedly abstinent for 1.5 years), chronic pancreatitis from alcohol use, recently admitted to [facility] with hyperkalemia, d/luz maria ACEI, sent with recurrent hyperkalemia and TRUE -TRUE on CKD stage II, suspect from ongoing osmotic diuresis from hyperglycemia and related hypovolumia -Hyperkalemia likely from above -NIDDM -HTN -Prior alcohol abuse -Chronic alcoholic pancreatitis Plan: s/p calcium/D50/Insulin/IVF in the ED. Kayexalate x1. Repeat labs. 1/2 NS at 75 ml/hr. Monitor volume status. Low K diet Dietary consult for the same. Bladder scan x 1. Renal/bladder US. Renal consult Dr. Ba. Continue metoprolol/amlodipine, avoid hypotension. Continue creaon. ISS, check A1c, diabetic diet, insulin vs endocrine input based on blood sugar readings. DVTPPX heparin Dispo telemetry, if repeat labs improved. Plan discussed with patient in detail, all questions answered. Total admit time 65 min.
[2018-05-21] MEDS: SODIUM CHLORIDE 0.45% 1,000 ML IV SCH (13:04)
[2018-05-21] MEDS ORDERED: SODIUM POLYSTYRENE SULFONATE 15 GM/60 ML BOTTLE ONE (13:06)
--- NOTE | 2018-05-21 13:06 | HP ---
CHIEF COMPLAINT: Hyperkalemia PCP: HISTORY OF PRESENT ILLNESS: Patient is a 72 year old female with history of hypertension, diabetes, and chronic kidney disease presents after phone call from Dr. Ba's office for potassium of 7. Since prior admission earlier this month for similar presentation, she has not taken Enalapril. Denies any recent changes in her diet , or any food omissions. Admits polydypsia, polyuria. Denies headache, change in vision, dizziness, fevers, chills, shortness of breath, chest pain, palpitations, abdominal pain, nausea, vomiting, diarrhea, constipation. ER course was notable for: (1) Potassium 6.3 (2) EKG normal sinus rhythm at 84 beats per minute. (3) Kayexalate, Insulin, Calcium gluconate, Recent Travel: PAST MEDICAL HISTORY: hypertension, diabetes, and chronic kidney disease, chronic pancreatitis secondary to alcohol abuse PAST SURGICAL HISTORY: Social History: Smoking: Alcohol: Admits history of heavy alcohol use. Last drink 1 year ago Drugs: Family History: Allergies sulfamethoxazole [From Bactrim] Allergy (Verified 05/21/18 08:30) trimethoprim [From Bactrim] Allergy (Verified 05/21/18 08:30) HOME MEDICATIONS: Home Medications Medication Instructions Recorded Linagliptin [Tradjenta] 5 mg PO DAILY 05/07/18 Lipase/Protease/Amylase [John Dr 1 each PO AC 05/07/18 36,000 Units Capsule] Metoprolol Succinate [Toprol Xl] 25 mg PO DAILY 05/07/18 Pregabalin [Lyrica] 100 mg PO BID 05/07/18 Amlodipine Besylate [Norvasc -] 10 mg PO DAILY 30 Days #30 tablet 05/08/18 REVIEW OF SYSTEMS CONSTITUTIONAL: Absent: fever, chills, diaphoresis, generalized weakness, malaise HEENT: Absent: rhinorrhea, nasal congestion, throat pain, throat swelling, visual changes CARDIOVASCULAR: Absent: chest pain, syncope, palpitations, irregular heart rate, lightheadedness RESPIRATORY: Absent: cough, shortness of breath, dyspnea with exertion, orthopnea, wheezing GASTROINTESTINAL: Absent: abdominal pain, abdominal distension, nausea, vomiting, diarrhea GENITOURINARY: Absent: dysuria, frequency, urgency, hesitancy, hematuria NEUROLOGIC: Absent: headache, focal weakness or paresthesias, dizziness, unsteady gait, seizure, mental status changes, bladder or bowel incontinence PHYSICAL EXAMINATION Vital Signs - 24 hr 05/21/18 05/21/18 08:30 11:43 Temperature 97 F L 97.1 F L Pulse Rate 93 H Pulse Rate [ 88 Left Apical] Respiratory 16 16 Rate Blood Pressure 127/73 Blood Pressure 128/70 [Left Arm] O2 Sat by Pulse 100 100 Oximetry (%) GENERAL: The patient is awake, alert, and fully oriented, in no acute distress. HEAD: Normal with no signs of trauma. EYES: PERRL, extraocular movements intact, sclera anicteric, conjunctiva clear. ENT: Oropharynx clear without exudates, erythema, or lesions. Moist mucous membranes. NECK: Trachea midline, full range of motion. Supple without lymphadenopathy LUNGS: Good inspiratory effort, and air entry b/l. Breath sounds equal, clear to auscultation bilaterally. No wheezes, no crackles b/l. No accessory muscle use. HEART: Regular rate and rhythm, S1, S2 without murmur, rub or gallop. ABDOMEN: Soft, nontender, nondistended, normoactive bowel sounds, no guarding, no rebound tenderness, no hepatosplenomegaly. EXTREMITIES: 2+ radial and dorsalis pedis pulses b/l. Warm, well-perfused, no lower extremity edema b/l. NEUROLOGICAL: Cranial nerves II through XII grossly intact. Normal speech. Strength 5/5 b/l upper and lower extremities. PSYCH: Normal mood, normal affect. SKIN: Warm, dry, no rashes or lesions noted. Laboratory Results - last 24 hr 05/21/18 05/21/18 05/21/18 09:15 09:15 09:29 WBC 8.6 RBC 4.06 Hgb 11.4 Hct 36.9 MCV 91.0 MCH 28.1 MCHC 30.8 L RDW 16.1 H Plt Count 142 MPV 9.7 Absolute Neuts (auto) 5.1 Neutrophils % 59.7 Lymphocytes % 28.1 Monocytes % 8.9 Eosinophils % 2.4 Basophils % 0.9 Nucleated RBC % 0 Sodium 144 Potassium 6.3 H* Chloride 122 H Carbon Dioxide 15 L Anion Gap 7 L BUN 32 H Creatinine 2.0 H Creat Clearance w eGFR 24.49 POC Glucometer 124.89048 Random Glucose 99 Calcium 8.8 Total Bilirubin 0.3 AST 21 ALT 28 Alkaline Phosphatase 255 H Total Protein 7.7 Albumin 4.1 Urine Color Urine Appearance Urine pH Ur Specific [place] Urine Protein Urine Glucose (UA) Urine Ketones Urine Blood Urine Nitrite Urine Bilirubin Urine Urobilinogen Ur Leukocyte Esterase Urine WBC (Auto) Urine RBC (Auto) Ur Epithelial Cells 05/21/18 11:13 WBC RBC Hgb Hct MCV MCH MCHC RDW Plt Count MPV Absolute Neuts (auto) Neutrophils % Lymphocytes % Monocytes % Eosinophils % Basophils % Nucleated RBC % Sodium Potassium Chloride Carbon Dioxide Anion Gap BUN Creatinine Creat Clearance w eGFR POC Glucometer Random Glucose Calcium Total Bilirubin AST ALT Alkaline Phosphatase Total Protein Albumin Urine Color Colorless Urine Appearance Clear Urine pH 5.0 Ur Specific [place] 1.008 L Urine Protein Negative Urine Glucose (UA) Negative Urine Ketones Negative Urine Blood Negative Urine Nitrite Negative Urine Bilirubin Negative Urine Urobilinogen Negative Ur Leukocyte Esterase 1+ H D Urine WBC (Auto) 2 Urine RBC (Auto) 1 Ur Epithelial Cells Rare ASSESSMENT/PLAN: Patient is a 72 year old female with history of hypertension, diabetes, and chronic kidney disease presents after phone call from Dr. Ba's office for potassium of 7 Hyperkalemia -Etiology may be secondary to dehydration, as she complains of polydipsia and polyuria. Likely contributed by poorly controlled DM. -No EKG changes, no ischemic changes, no peaked T waves compared to prior admission. -Patient received Kayexalate 30mg PO X1 in ED -Patient received Calcium Gluconate 2000mg IV X1 in ED -Patient received Insulin 10 units IV X1 in ED -Sodium bicarbonate 50 meq IV X1 in ED -D50w 25 grams IV X1 in ED -IV 1/2 normal saline at 75mL/ hour -Cardiac monitoring Hypertension -Reinstate Norvasc 10mg PO daily -Reinstate Metoprolol XL 25mg PO daily Diabetes Mellitus -Hold oral home medications -ISS ACHS -BGM ACHS -Reinstate Lyrica 100mg PO BID Chronic Kidney Disease -Creatinine mildly elevated at 2.0, baseline around 1.8 -F/U nephrology consult (Dr. Ba) -IV 1/2 normal saline at 75mL/ hour Chronic Pancreatitis -Reinstate Creon [id number] PO AC FEN -IV 1/2 normal saline at 75mL/ hour -Hyperkalemia, Will follow BMP -Renal, potassium restricted diet Prophylaxis -Heparin [id number] TID Disposition -Continue observation in telemetry Visit type - Emergency Visit Emergency Visit: Yes ED Registration Date: 05/21/18 Care time: The patient presented to the Emergency Department on the above date and was hospitalized for further evaluation of their emergent condition. - New Patient This patient is new to me today: Yes Date on this admission: 05/21/18 - Critical Care Critical Care patient: No
[2018-05-21 13:29] LABS: ALBUMIN 3.6 g/dl (3.4-5.0); ALK PHOS 219 U/L (45-117); ANION GAP 5 MMOL/L (8-16); BILIRUBIN,TOTAL 0.2 mg/dL (0.2-1); BLOOD UREA NITROGEN 30 mg/dL (7-18); CALCIUM 8.2 mg/dL (8.5-10.1); CHLORIDE 122 mmol/L (98-107); CO2 20 mmol/L (21-32); CREATININE 1.7 mg/dL (0.55-1.3); POTASSIUM 4.9 mmol/L (3.5-5.1); SGOT/AST 17 U/L (15-37); SGPT/ALT 22 U/L (13-61); SODIUM 147 mmol/L (136-145); TOT PROT 6.9 g/dl (6.4-8.2)
[2018-05-21 13:46] LABS: GLUCOSE,RANDOM 30 mg/dL (74-106)
[2018-05-21] MEDS: HEPARIN NA (PORCINE) 5,000 UNITS/ML 1ML VIAL SQ SCH ×2 (15:19→22:12)
[2018-05-21] MEDS ORDERED: HEPARIN NA (PORCINE) 5,000 UNITS/ML 1ML VIAL ONE (15:20)
--- NOTE | 2018-05-21 16:03 | CONSULT ---
Consult Consult Specialty:: Nephrology Reason for Consultation:: hyperkalemia - History of Present Illness Chief Complaint: I sent pt in for hyperkalemia History of Present Illness: Pt is a 72 year old female with hx of CKD, DM, and pancreatic insufficiency who I sent to the hospital for hyperkalemia. SHe came to the office yesterday and her potassium was 7.2. She says she feels well. She denies shortness of breath. She denies chest pain or palpitations. She is awake and alert. She does complain of polyuria and polydipsia. She says her blood sugar has been uncontrolled. - History Source History Provided By: Patient, Medical Record - Past Medical History Cardio/Vascular: Yes: HTN, Hyperlipdemia Gastrointestinal: Yes: Other Renal/: Yes: Renal Inusuff, Other (hyperkalemia) Endocrine: Yes: Diabetes Mellitus - Alcohol/Substance Use Hx Alcohol Use: No History of Substance Use: reports: None - Smoking History Smoking history: Never smoked Have you smoked in the past 12 months: Yes Aproximately how many cigarettes per day: 5 - Social History ADL: Independent Occupation: Retired History of Recent Travel: Yes ([place] ) Home Medications - Allergies Allergies/Adverse Reactions: Allergies Allergy/AdvReac Type Severity Reaction Status Date / Time sulfamethoxazole Allergy Verified 05/21/18 08:30 [From Bactrim] trimethoprim [From Bactrim] Allergy Verified 05/21/18 08:30 - Home Medications Home Medications: Ambulatory Orders Linagliptin [Tradjenta] 5 mg PO DAILY 05/07/18 Lipase/Protease/Amylase [John Figueroa 36,000 Units Capsule] 1 each PO AC 05/07/18 Metoprolol Succinate [Toprol Xl] 25 mg PO DAILY 05/07/18 Pregabalin [Lyrica] 100 mg PO BID 05/07/18 Amlodipine Besylate [Norvasc -] 10 mg PO DAILY 30 Days #30 tablet 05/08/18 Family Disease History - Family Disease History Family Disease History: Other: Father (unknown ), Mother (vaginal cancer ) Review of Systems - Review of Systems Constitutional: reports: No Symptoms Eyes: reports: No Symptoms HENT: reports: No Symptoms Neck: reports: No Symptoms Cardiovascular: reports: No Symptoms Respiratory: reports: No Symptoms Gastrointestinal: reports: No Symptoms Genitourinary: reports: No Symptoms Musculoskeletal: reports: No Symptoms Integumentary: reports: No Symptoms Neurological: reports: No Symptoms Endocrine: reports: No Symptoms Hematology/Lymphatic: reports: No Symptoms Psychiatric: reports: No Symptoms Physical Exam Vital Signs: Vital Signs Temperature 98.1 F 05/21/18 13:12 Pulse Rate 109 H 05/21/18 13:12 Respiratory Rate 16 05/21/18 13:12 Blood Pressure 139/82 05/21/18 13:12 O2 Sat by Pulse Oximetry (%) 99 05/21/18 13:12 Constitutional: Yes: Calm Eyes: Yes: Conjunctiva Clear HENT: Yes: WNL Cardiovascular: Yes: S1, S2 Respiratory: Yes: CTA Bilaterally Gastrointestinal: Yes: Soft Renal/: Yes: WNL Musculoskeletal: Yes: WNL Edema: No Neurological: Yes: Oriented Psychiatric: Yes: Oriented Labs: CBC, BMP 05/21/18 09:15 05/21/18 12:40 Laboratory Tests 05/21/18 05/21/18 05/21/18 09:15 09:15 11:13 WBC 8.6 Hgb 11.4 Potassium 6.3 H* Creatinine 2.0 H Urine Protein Negative Urine Glucose (UA) Negative Urine Blood Negative 05/21/18 12:40 WBC Hgb Potassium 4.9 Creatinine 1.7 H Urine Protein Urine Glucose (UA) Urine Blood Problem List - Problems (1) Hyperkalemia Code(s): E87.5 - HYPERKALEMIA (2) TRUE (acute kidney injury) Code(s): N17.9 - ACUTE KIDNEY FAILURE, UNSPECIFIED (3) Chronic pancreatitis Code(s): K86.1 - OTHER CHRONIC PANCREATITIS (4) Diabetes mellitus Code(s): E11.9 - TYPE 2 DIABETES MELLITUS WITHOUT COMPLICATIONS Assessment/Plan Current Medications Generic Name Dose Route Start Last Admin Trade Name Freq PRN Reason Stop Dose Admin Amlodipine Besylate 10 mg 05/22/18 10:00 Norvasc - PO DAILY MITCH Heparin Sodium (Porcine) 5,000 unit 05/21/18 14:00 05/21/18 15:19 Heparin - SQ 5,000 unit TID MITCH Administration Sodium Chloride 1,000 mls @ 75 mls/hr 05/21/18 12:45 05/21/18 13:04 1/2 Normal Saline IV 75 mls/hr ASDIR MITCH Administration Insulin Aspart 1 vial 10/18/18 16:30 Novolog Vial Sliding Scale - SQ ACHS MITCH Protocol Metoprolol Succinate 25 mg 05/21/18 22:00 Toprol Xl - PO BID MITCH Sodium Bicarbonate 50 meq 05/21/18 10:45 05/21/18 11:02 Sodium Bicarbonate 8.4% - IV 50 meq Q12H MITCH Administration Impression 1. hyperkalemia 2. CKD 3. pancreatic insufficiency 4. hx etoh abuse 5. htn 6. DM 7. TRUE 8. hypernatremia Plan - potassium treated medically - potassium improved - blood sugar has been labile - follow studies to calc ttkg - repeat labs in am - cont fluids
[2018-05-21 16:08] VITALS: BMI 21.9
[2018-05-21] MEDS: metoPROLOL SUCCINATE 25 MG TAB.SR.24H (FP) PO SCH (22:12)
[2018-05-21] MEDS: INSULIN SLIDING SCALE (NOVOLOG) 1 VIAL SQ SCH ×2 (22:12→22:18)
[2018-05-22] MEDS: INSULIN SLIDING SCALE (NOVOLOG) 1 VIAL SQ SCH ×2 (06:42→11:17)
[2018-05-22] MEDS: HEPARIN NA (PORCINE) 5,000 UNITS/ML 1ML VIAL SQ SCH ×2 (06:42→14:17)
[2018-05-22 06:43] LABS: BASO % 0.6 % (0-2.0); EOS % 2.1 % (0-4.5); HEMOGLOBIN 10.4 GM/dL (10.7-15.3); MCH 27.6 pg (25.7-33.7); MCHC 30.5 g/dl (32.0-36.0); MEAN CELL VOLUME 90.4 fl (80-96); MEAN PLT VOLUME 9.5 fl (7.5-11.1); MONO % 9.1 % (3.8-10.2); NEUT % 52.2 % (42.8-82.8); PLATELET COUNT 124 K/MM3 (134-434); RBC 3.76 M/mm3 (3.60-5.2); RDW 15.8 % (11.6-15.6); WHITE BLOOD COUNT 7.9 K/mm3 (4.0-10.0)
[2018-05-22 06:56] LABS: INR 1.01 (0.83-1.09); PROTHROMBIN TIME (PATIENT) 11.9 SEC (9.7-13.0)
[2018-05-22 07:46] LABS: ALBUMIN 3.7 g/dl (3.4-5.0); ALK PHOS 222 U/L (45-117); ANION GAP 8 MMOL/L (8-16); BILIRUBIN,TOTAL 0.4 mg/dL (0.2-1); BLOOD UREA NITROGEN 22 mg/dL (7-18); CALCIUM 8.5 mg/dL (8.5-10.1); CHLORIDE 121 mmol/L (98-107); CO2 18 mmol/L (21-32); CREATININE 1.4 mg/dL (0.55-1.3); GLUCOSE,RANDOM 76 mg/dL (74-106); MAGNESIUM 1.8 mg/dL (1.8-2.4); PHOSPHOROUS 3.8 mg/dL (2.5-4.9); POTASSIUM 4.9 mmol/L (3.5-5.1); SGOT/AST 23 U/L (15-37); SGPT/ALT 25 U/L (13-61); SODIUM 147 mmol/L (136-145); TOT PROT 6.8 g/dl (6.4-8.2)
[2018-05-22] MEDS: metoPROLOL SUCCINATE 25 MG TAB.SR.24H (FP) PO SCH (09:56)
[2018-05-22] MEDS ORDERED: amLODIPine BESYLATE 10 MG TABLET (FP) PO SCH (10:00)
[2018-05-22] MEDS: SODIUM CHLORIDE 0.45% 1,000 ML IV SCH (12:00)
--- NOTE | 2018-05-22 12:58 | PN ---
Teaching Attending Note Name of Resident: Lisandro Mcmahon ATTENDING PHYSICIAN STATEMENT I saw and evaluated the patient. I reviewed the resident's note and discussed the case with the resident. I agree with the resident's findings and plan as documented with exceptions below. SUBJECTIVE: Patient seen and examined, no complaints, tolerating diet well. OBJEC A Vital Signs Period Temp Pulse Resp BP Sys/Villareal Pulse Ox Last 24 Hr 97.5 F-98.3 F 88-109 16-20 122-148/69-88 99-99 Intake & Output 05/19/18 05/20/18 05/21/18 05/22/18 23:59 23:59 23:59 23:59 Intake Total 360 900 Balance 360 900 Weight 112 lb General: sitting in bed in no acute distress Chest: CTAB, no rales or wheezing Abdomen:Soft, NT, ND Extremities: no edema Home Medications Medication Instructions Recorded Linagliptin [Tradjenta] 5 mg PO DAILY 05/07/18 Lipase/Protease/Amylase [Creon Dr 1 each PO AC 05/07/18 36,000 Units Capsule] Metoprolol Succinate [Toprol Xl] 25 mg PO DAILY 05/07/18 Pregabalin [Lyrica] 100 mg PO BID 05/07/18 Amlodipine Besylate [Norvasc -] 10 mg PO DAILY 30 Days #30 tablet 05/08/18 Sodium Bicarbonate 325 mg PO BID 30 Days #60 tablet 05/22/18 Active Medications Amlodipine Besylate (Norvasc -) 10 mg PO DAILY [facility] Last Admin: 05/22/18 09:57 Dose: 10 mg Heparin Sodium (Porcine) (Heparin -) 5,000 unit SQ TID [facility] Last Admin: 05/22/18 06:42 Dose: 5,000 unit Sodium Chloride (1/2 Normal Saline) 1,000 mls @ 75 mls/hr IV ASDIR [facility] Last Admin: 05/21/18 13:04 Dose: 75 mls/hr Insulin Aspart (Novolog Vial Sliding Scale -) 1 vial SQ ACHS [facility]; Protocol Last Admin: 05/22/18 06:42 Dose: Not Given Metoprolol Succinate (Toprol Xl -) 25 mg PO BID [facility] Last Admin: 05/22/18 09:56 Dose: 25 mg Laboratory Results - last 24 hr 05/21/18 05/21/18 05/21/18 12:40 12:59 13:33 WBC RBC Hgb Hct MCV MCH MCHC RDW Plt Count MPV Absolute Neuts (auto) Neutrophils % Lymphocytes % Monocytes % Eosinophils % Basophils % Nucleated RBC % PT with INR INR Sodium 147 H Potassium 4.9 Chloride 122 H Carbon Dioxide 20 L Anion Gap 5 L BUN 30 H Creatinine 1.7 H Creat Clearance w eGFR 29.54 POC Glucometer 51.53801 91.94165 Random Glucose 30 L* Hemoglobin A1c % Serum Osmolality Calcium 8.2 L Phosphorus Magnesium Total Bilirubin 0.2 AST 17 ALT 22 Alkaline Phosphatase 219 H Total Protein 6.9 Albumin 3.6 05/21/18 05/21/18 05/22/18 15:55 21:46 05:30 WBC RBC Hgb Hct MCV MCH MCHC RDW Plt Count MPV Absolute Neuts (auto) Neutrophils % Lymphocytes % Monocytes % Eosinophils % Basophils % Nucleated RBC % PT with INR INR Sodium Potassium Chloride Carbon Dioxide Anion Gap BUN Creatinine Creat Clearance w eGFR POC Glucometer 70 Random Glucose Hemoglobin A1c % 6.4 H Serum Osmolality 308 H Calcium Phosphorus Magnesium Total Bilirubin AST ALT Alkaline Phosphatase Total Protein Albumin 05/22/18 05/22/18 05/22/18 05:30 05:30 05:30 WBC 7.9 RBC 3.76 Hgb 10.4 L Hct 34.0 MCV 90.4 MCH 27.6 MCHC 30.5 L RDW 15.8 H Plt Count 124 L MPV 9.5 Absolute Neuts (auto) 4.1 Neutrophils % 52.2 Lymphocytes % 36.0 D Monocytes % 9.1 Eosinophils % 2.1 Basophils % 0.6 Nucleated RBC % 0 PT with INR 11.90 INR 1.01 Sodium 147 H Potassium 4.9 Chloride 121 H Carbon Dioxide 18 L Anion Gap 8 BUN 22 H Creatinine 1.4 H Creat Clearance w eGFR 36.96 POC Glucometer Random Glucose 76 Hemoglobin A1c % Serum Osmolality Calcium 8.5 Phosphorus 3.8 Magnesium 1.8 Total Bilirubin 0.4 AST 23 ALT 25 Alkaline Phosphatase 222 H Total Protein 6.8 Albumin 3.7 05/22/18 06:04 WBC RBC Hgb Hct MCV MCH MCHC RDW Plt Count MPV Absolute Neuts (auto) Neutrophils % Lymphocytes % Monocytes % Eosinophils % Basophils % Nucleated RBC % PT with INR INR Sodium Potassium Chloride Carbon Dioxide Anion Gap BUN Creatinine Creat Clearance w eGFR POC Glucometer 82 Random Glucose Hemoglobin A1c % Serum Osmolality Calcium Phosphorus Magnesium Total Bilirubin AST ALT Alkaline Phosphatase Total Protein Albumin renal/bladder US noted. ASSESSMENT AND PLAN: 72 yof with PMhx of HTN, NIDDM, CKD stage II, Alcohol abuse (reportedly abstinent for 1.5 years), chronic pancreatitis from alcohol use, recently admitted to [facility] with hyperkalemia, d/luz maria ACEI admitted with hyperkalemia -Hyperkalemia -Hypernatremia -Hyperchloremia -TRUE on CKD stage II -h/o alcohol abuse -Chronic pancreatitis -HTN -NIDDM Plan: K normalized. Urine studies ordred, discuss with nursing to send the same. Renal/bladder US noted. Dr. Ba input appreciated. Dietary input for Low K diet for now Continue to hold ACei on d/c. Patient counseled on the need for tighter blood glucose control and discussion with her PCP for outpatient endocrine referral, patient agreable. Dispo d/c home today with outpatient follow up with Dr. Ba. Plan discussed with patient in detail, all questions answered.
--- NOTE | 2018-05-22 14:34 | DS ---
Physical Exam: SUBJECTIVE: Patient seen and examined at bedside this morning, resting comfortably in bed. She expresses desire to go home today. Denies any acute complaints. Denies headaches, lightheadedness, fevers, chills, shortness of breath, chest pain, palpitations, abdominal pain, nausea, vomiting, diarrhea, constipation OBJECTIVE: Vital Signs Period Temp Pulse Resp BP Sys/Villareal Pulse Ox Last 24 Hr 97.5 F-98.3 F 88-99 18-20 122-148/69-88 99 PHYSICAL EXAM GENERAL: The patient is awake, alert, and fully oriented, in no acute distress. HEAD: Normal with no signs of trauma. EYES: PERRL, extraocular movements intact, sclera anicteric, conjunctiva clear. ENT: Oropharynx clear without exudates, erythema, or lesions. Moist mucous membranes. NECK: Trachea midline, full range of motion. Supple without lymphadenopathy LUNGS: Good inspiratory effort, and air entry b/l. Breath sounds equal, clear to auscultation bilaterally. No wheezes, no crackles b/l. No accessory muscle use. HEART: Regular rate and rhythm, S1, S2 without murmur, rub or gallop. ABDOMEN: Soft, nontender, nondistended, normoactive bowel sounds, no guarding, no rebound tenderness, no hepatosplenomegaly. EXTREMITIES: 2+ radial and dorsalis pedis pulses b/l. Warm, well-perfused, no lower extremity edema b/l. NEUROLOGICAL: Cranial nerves II through XII grossly intact. Normal speech. Strength 5/5 b/l upper and lower extremities. PSYCH: Normal mood, normal affect. SKIN: Warm, dry, no rashes or lesions noted. LABS Laboratory Results - last 24 hr 05/21/18 05/21/18 05/22/18 15:55 21:46 05:30 WBC RBC Hgb Hct MCV MCH MCHC RDW Plt Count MPV Absolute Neuts (auto) Neutrophils % Lymphocytes % Monocytes % Eosinophils % Basophils % Nucleated RBC % PT with INR INR Sodium Potassium Chloride Carbon Dioxide Anion Gap BUN Creatinine Creat Clearance w eGFR POC Glucometer 70 Random Glucose Hemoglobin A1c % 6.4 H Serum Osmolality 308 H Calcium Phosphorus Magnesium Total Bilirubin AST ALT Alkaline Phosphatase Total Protein Albumin 05/22/18 05/22/18 05/22/18 05:30 05:30 05:30 WBC 7.9 RBC 3.76 Hgb 10.4 L Hct 34.0 MCV 90.4 MCH 27.6 MCHC 30.5 L RDW 15.8 H Plt Count 124 L MPV 9.5 Absolute Neuts (auto) 4.1 Neutrophils % 52.2 Lymphocytes % 36.0 D Monocytes % 9.1 Eosinophils % 2.1 Basophils % 0.6 Nucleated RBC % 0 PT with INR 11.90 INR 1.01 Sodium 147 H Potassium 4.9 Chloride 121 H Carbon Dioxide 18 L Anion Gap 8 BUN 22 H Creatinine 1.4 H Creat Clearance w eGFR 36.96 POC Glucometer Random Glucose 76 Hemoglobin A1c % Serum Osmolality Calcium 8.5 Phosphorus 3.8 Magnesium 1.8 Total Bilirubin 0.4 AST 23 ALT 25 Alkaline Phosphatase 222 H Total Protein 6.8 Albumin 3.7 05/22/18 06:04 WBC RBC Hgb Hct MCV MCH MCHC RDW Plt Count MPV Absolute Neuts (auto) Neutrophils % Lymphocytes % Monocytes % Eosinophils % Basophils % Nucleated RBC % PT with INR INR Sodium Potassium Chloride Carbon Dioxide Anion Gap BUN Creatinine Creat Clearance w eGFR POC Glucometer 82 Random Glucose Hemoglobin A1c % Serum Osmolality Calcium Phosphorus Magnesium Total Bilirubin AST ALT Alkaline Phosphatase Total Protein Albumin HOSPITAL COURSE: Date of Admission:05/21/18 Date of Discharge: 05/22/18 Patient is a 72 year old female with history of hypertension, diabetes, and chronic kidney disease presented after receiving phone call from Dr. Ba's office for potassium of 7. Potassium upon admission was 6.3. She was recently admitted for hyperkalemia 05/07/2018. No EKG changes, no ischemic changes, no peaked T waves compared to prior admission. She received kayexalate, calcium gluconate, insulin, sodium bicarbonate in the ED. Potassium decreased to 4.9 and remained stable. Patient received taxonomy teacher instruction for low potassium diet. Patient was discharged home with instruction to follow up with primary care physician, and reuse technician within one week of discharge. To follow up with Dr. Ba within two weeks of discharge. Minutes to complete discharge: 37 Discharge Summary Reason For Visit: HYPERKALEMIA Current Active Problems Hyperkalemia (Acute) Condition: Stable - Instructions Diet, Activity, Other Instructions: Hospital course: You were admitted with elevated potassium of 6.3. You were treated with with medication to lower the potassium, and your level is now stable. Your urine tests have been sent and you can have Dr. Ba follow up on results in his office and discuss further plan. Diet and Medications It is very important that you follow a low potassium diet as discussed with the taxonomy teacher. A pamphlet has been provided for your information. Further, continue taking Amlodipine and Metoprolol ONLY for your blood pressure. As per your prior hospitalization DO NOT take Enalapril anymore, as it may elevate your potassium levels. You will start taking sodium bicarbonate 325mg every 12 hours. Continue taking your Lyrica, Creon, and Tradjenta as directed. Follow ups You will follow up with your primary care physician Dr. Gresham within one week of discharge. Blood work BMP (basic metabolic panel) in 1 week with your doctor. In addition, we have provided a referral for reuse technician Dr. Harman to help control your blood sugars and diabetes. Follow up in one week. In the meantime, continue checking your blood sugars daily first thing in the morning before eating or drinking, before any meals, and two hours after meals. Record the values and bring with you to the doctor's visit. Notify your doctor if blood sugars < 75 or persistently > 140 noted. Follow up with Dr. Ba within two weeks of discharge. Please call 911 and return to the nearest emergency department if you experience any fevers, chills, shortness of breath, chest pain, palpitations, changes in vision, lightheadedness, fall, loss of consciousness or any new concerns. Referrals: Roshan Gresham [Other] - 1 Week Willard Ba MD [Staff Physician] - 2 Weeks Sadia Harman MD [Staff Physician] - 1 Week Disposition: HOME - Home Medications Comprehensive Discharge Medication List: Ambulatory Orders Linagliptin [Tradjenta] 5 mg PO DAILY 05/07/18 Lipase/Protease/Amylase [John Dr 36,000 Units Capsule] 1 each PO AC 05/07/18 Metoprolol Succinate [Toprol Xl] 25 mg PO DAILY 05/07/18 Pregabalin [Lyrica] 100 mg PO BID 05/07/18 Amlodipine Besylate [Norvasc -] 10 mg PO DAILY 30 Days #30 tablet 05/08/18 Sodium Bicarbonate 325 mg PO BID 30 Days #60 tablet 05/22/18 This patient is new to me today: No Emergency Visit: Yes ED Registration Date: 05/21/18 Care time: The patient presented to the Emergency Department on the above date and was hospitalized for further evaluation of their emergent condition. Critical Care patient: No - Discharge Referral Referred to [facility] Med P.C.: No
[2018-05-22 14:55] VITALS: BP 135/79; PULSE 99; TEMP 98.4
--- NOTE | 2018-05-22 15:34 | PN ---
Progress Note, Physician History of Present Illness: Pt seen and examined at bedside. She is awake and alert. She is eager to go home. She denies chest pain or palpitations. - Current Medication List Current Medications: Active Medications Amlodipine Besylate (Norvasc -) 10 mg PO DAILY [facility] Last Admin: 05/22/18 09:57 Dose: 10 mg Heparin Sodium (Porcine) (Heparin -) 5,000 unit SQ TID [facility] Last Admin: 05/22/18 14:17 Dose: Not Given Sodium Chloride (1/2 Normal Saline) 1,000 mls @ 75 mls/hr IV ASDIR [facility] Last Admin: 05/22/18 12:00 Dose: Not Given Insulin Aspart (Novolog Vial Sliding Scale -) 1 vial SQ ACHS [facility]; Protocol Last Admin: 05/22/18 11:17 Dose: Not Given Metoprolol Succinate (Toprol Xl -) 25 mg PO BID [facility] Last Admin: 05/22/18 09:56 Dose: 25 mg - Objective Vital Signs: Vital Signs Temperature 98.4 F 05/22/18 14:51 Pulse Rate 99 H 05/22/18 14:51 Respiratory Rate 20 05/22/18 14:51 Blood Pressure 135/79 05/22/18 14:51 O2 Sat by Pulse Oximetry (%) 99 05/22/18 10:00 Constitutional: Yes: Calm Eyes: Yes: Conjunctiva Clear HENT: Yes: Atraumatic Neck: Yes: Supple Cardiovascular: Yes: S1, S2 Respiratory: Yes: CTA Bilaterally Gastrointestinal: Yes: Normal Bowel Sounds, Soft Genitourinary: Yes: WNL Edema: No Neurological: Yes: Oriented Psychiatric: Yes: Oriented Labs: CBC, BMP 05/22/18 05:30 05/22/18 05:30 INR, PTT INR 1.01 (0.83-1.09) 05/22/18 05:30 Problem List - Problems (1) Hyperkalemia Code(s): E87.5 - HYPERKALEMIA (2) TRUE (acute kidney injury) Code(s): N17.9 - ACUTE KIDNEY FAILURE, UNSPECIFIED (3) Chronic pancreatitis Code(s): K86.1 - OTHER CHRONIC PANCREATITIS (4) Diabetes mellitus Code(s): E11.9 - TYPE 2 DIABETES MELLITUS WITHOUT COMPLICATIONS Assessment/Plan Current Medications Generic Name Dose Route Start Last Admin Trade Name Freq PRN Reason Stop Dose Admin Amlodipine Besylate 10 mg 05/22/18 10:00 05/22/18 09:57 Norvasc - PO 10 mg DAILY [facility] Administration Heparin Sodium (Porcine) 5,000 unit 05/21/18 14:00 05/22/18 14:17 Heparin - SQ Not Given TID [facility] Sodium Chloride 1,000 mls @ 75 mls/hr 05/21/18 12:45 05/22/18 12:00 1/2 Normal Saline IV Not Given ASDIR [facility] Insulin Aspart 1 vial 05/21/18 16:30 05/22/18 11:17 Novolog Vial Sliding Scale - SQ Not Given ACHS [facility] Protocol Metoprolol Succinate 25 mg 05/21/18 22:00 05/22/18 09:56 Toprol Xl - PO 25 mg BID [facility] Administration Impression 1. hyperkalemia 2. CKD 3. pancreatic insufficiency 4. hx etoh abuse 5. htn 6. DM 7. TRUE 8. hypernatremia Plan - potassium improved - start PO bicarb - can see in office - will need low potassium diet - will need endocrine eval for better glucose control - urine studies were not sent
== END 2018-05-22 16:51 | disposition home or self-care (01) ==
LOC: JER 08:29 → JERBED 11:55 → J4W 15:27
PROVIDERS: ADMIT Hospitalist; ATTEND Hospitalist
PROC: 3E033VG Introduction of Insulin into Peripheral Vein, Percutaneous Approach (ICD-10-PCS; principal; 2018-05-21)
PROC: 3E033GC Introduction of Other Therapeutic Substance into Peripheral Vein, Percutaneous Approach (ICD-10-PCS; 2018-05-21)
DX: E87.5 Hyperkalemia (principal); E11.22 Type 2 diabetes mellitus with diabetic chronic kidney disease; I12.9 Hypertensive chronic kidney disease with stage 1 through stage 4 chronic kidney disease, or unspecified chronic kidney disease; N18.2 Chronic kidney disease, stage 2 (mild); N17.9 Acute kidney failure, unspecified; F10.21 Alcohol dependence, in remission; K86.0 Alcohol-induced chronic pancreatitis; E78.5 Hyperlipidemia, unspecified; D64.9 Anemia, unspecified; E87.0 Hyperosmolality and hypernatremia
CPT/HCPCS: 36415; 76775-TC; 76856-TC; 80053; 81003; 81015; 82436; 82962; 83036; 83735; 83930; 83935; 84100; 84133; 84300; 85025; 85610; 87086; 93005; 93010; 96374; 96375; 99283-25; G0378; J1644; J7030

== ENCOUNTER 2018-06-24 17:14 | Emergency (ER) | payer OTHER ==
--- NOTE | 2018-06-24 17:21 | PDOC ---
Rapid Medical Evaluation Time Seen by Provider: 06/24/18 17:19 Medical Evaluation: Allergies Allergy/AdvReac Type Severity Reaction Status Date / Time sulfamethoxazole Allergy Verified 05/21/18 08:30 [From Bactrim] trimethoprim [From Bactrim] Allergy Verified 05/21/18 08:30 06/24/18 17:19 I have performed a brief in-person evaluation of this patient. The patient presents with a chief complaint of: right arm pain Pertinent physical exam findings: unable to flex right elbow. Palpable mass present to distal humerus I have ordered the following: nothing The patient will proceed to the ED for further evaluation. Discharge Disposition - Diagnosis Arm pain - Referrals - Patient Instructions - Post Discharge Activity
[2018-06-24 17:22] VITALS: BP 183/133; PULSE 119; TEMP 98.2; BMI 21.9
--- NOTE | 2018-06-24 17:39 | PDOC ---
History of Present Illness - General Chief Complaint: Pain Stated Complaint: RT ARM PAIN Time Seen by Provider: 06/24/18 17:19 - History of Present Illness Initial Comments: 06/24/18 17:37 72-year-old female with a past medical history significant for hypertension and diabetes presents for evaluation of right arm pain. She states she was making macaroni and cheese at home felt a pop in her right arm and had immediate onset of pain. Past History - Past Medical History Allergies/Adverse Reactions: Allergies Allergy/AdvReac Type Severity Reaction Status Date / Time sulfamethoxazole Allergy Verified 06/24/18 17:22 [From Bactrim] trimethoprim [From Bactrim] Allergy Verified 06/24/18 17:22 Home Medications: Ambulatory Orders Linagliptin [Tradjenta] 5 mg PO DAILY 05/07/18 Lipase/Protease/Amylase [Creon Dr 36,000 Units Capsule] 1 each PO AC 05/07/18 Metoprolol Succinate [Toprol Xl] 25 mg PO DAILY 05/07/18 Pregabalin [Lyrica] 100 mg PO BID 05/07/18 Amlodipine Besylate [Norvasc -] 10 mg PO DAILY 30 Days #30 tablet 05/08/18 Sodium Bicarbonate 325 mg PO BID 30 Days #60 tablet 05/22/18 Anemia: Yes Asthma: No Cancer: No Cardiac Disorders: Yes CVA: No COPD: No CHF: No Dementia: No Diabetes: Yes GI Disorders: Yes (pancreatitis) Disorders: No HTN: Yes Hypercholesterolemia: Yes Liver Disease: No Seizures: No Thyroid Disease: No - Surgical History Abdominal Surgery: No Appendectomy: No Cardiac Surgery: No Cholecystectomy: No Lung Surgery: No Neurologic Surgery: No Orthopedic Surgery: No - Immunization History Immunization Up to Date: Yes - Suicide/Smoking/Psychosocial Hx Smoking History: Current every day smoker Have you smoked in the past 12 months: Yes Number of Cigarettes Smoked Daily: 6 Information on smoking cessation initiated: No 'Breaking Loose' booklet given: 05/08/14 Hx Alcohol Use: No Drug/Substance Use Hx: No Substance Use Type: None Hx Substance Use Treatment: No Review of Systems - Review of Systems Musculoskeletal: Yes: See HPI *Physical Exam - Vital Signs Last Vital Signs Temp Pulse Resp BP Pulse Ox 98.2 F 119 H 18 183/133 H 100 06/24/18 17:19 11/21/18 17:19 06/24/18 17:19 06/24/18 17:19 06/24/18 17:19 - Physical Exam Comments: 06/24/18 17:37 Right arm skin color and temperature are normal range of motion of the elbow is limited range of motion the shoulder slightly limited there is no tenderness about the shoulder or elbow she has full supination with some discomfort in the area of the biceps 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 *DC/Admit/Observation/Transfer Diagnosis at time of Disposition: Arm pain, Biceps tendon rupture, proximal - Discharge Dispostion Disposition: HOME Condition at time of disposition: Stable Decision to Admit order: No - Referrals Referrals: Hansel Morales MD [Staff Physician] - - Patient Instructions Additional Instructions: You may take Tylenol for pain as directed follow-up with orthopedic surgery in 2 -3 days for further evaluation and treatment options please use a sling while outside the house the sling is only for comfort. Remove the sling at home and perform gentle range of motion of the elbow and shoulder as discussed in the emergency room. Return to the emergency room should symptoms worsen or go unresolved. - Post Discharge Activity
== END 2018-06-24 17:43 | disposition home or self-care (01) ==
LOC: JERFT 17:14
DX: S46.211A Strain of muscle, fascia and tendon of other parts of biceps, right arm, initial encounter (principal); X58.XXXA Exposure to other specified factors, initial encounter; Y93.G1 Activity, food preparation and clean up; Y92.030 Kitchen in apartment as the place of occurrence of the external cause; I10 Essential (primary) hypertension; E78.00 Pure hypercholesterolemia, unspecified; E11.9 Type 2 diabetes mellitus without complications; Z79.84 Long term (current) use of oral hypoglycemic drugs; Z86.2 Personal history of diseases of the blood and blood-forming organs and certain disorders involving the immune mechanism; Z87.19 Personal history of other diseases of the digestive system; F17.210 Nicotine dependence, cigarettes, uncomplicated
CPT/HCPCS: 99281-25

== ENCOUNTER 2019-09-17 08:26 | Emergency (ER) | payer OTHER ==
[2019-09-17 08:39] VITALS: BMI 22.6
--- NOTE | 2019-09-17 08:46 | PDOC ---
History of Present Illness - General History Source: Patient - History of Present Illness Initial Comments: 09/17/19 09:14 73 y/o female with a PMHx of HTN, IDDM, CKD presents to our ED c/o chest pain following a fall. States she was walking in her home when she tripped on a rug and fell forward. No head trauma or LOC. Pain is worse with movement, breathing and reproduced on palpation. Ambulatory post fall. No pre-fall chest pain, lightheadedness, palpitations. Has been taking Tylenol with little relief of the pain. 09/17/19 09:25 <Mervat Pizarro - Last Filed: 09/17/19 12:35> <Cassia Estrada - Last Filed: 09/18/19 10:32> - General Chief Complaint: Pain, Acute Stated Complaint: CHEST PAIN Past History - Past Medical History Anemia: Yes Asthma: No Cancer: No Cardiac Disorders: Yes CVA: No COPD: No CHF: No Dementia: No Diabetes: Yes GI Disorders: Yes (pancreatitis) Disorders: No HTN: Yes Hypercholesterolemia: Yes Liver Disease: No Seizures: No Thyroid Disease: No - Surgical History Abdominal Surgery: No Appendectomy: No Cardiac Surgery: No Cholecystectomy: No Lung Surgery: No Neurologic Surgery: No Orthopedic Surgery: No - Immunization History Immunization Up to Date: Yes - Psycho Social/Smoking Cessation Hx Smoking History: Current every day smoker Have you smoked in the past 12 months: Yes Number of Cigarettes Smoked Daily: 6 Information on smoking cessation initiated: Yes 'Breaking Loose' booklet given: 05/08/14 Hx Alcohol Use: No Drug/Substance Use Hx: No Substance Use Type: None Hx Substance Use Treatment: No <Mervat Pizarro - Last Filed: 09/17/19 12:35> <Cassia Estrada - Last Filed: 09/18/19 10:32> - Past Medical History Allergies/Adverse Reactions: Allergies Allergy/AdvReac Type Severity Reaction Status Date / Time sulfamethoxazole Allergy Verified 09/17/19 08:33 [From Bactrim] trimethoprim [From Bactrim] Allergy Verified 09/17/19 08:33 Home Medications: Ambulatory Orders Linagliptin [Tradjenta] 5 mg PO DAILY 05/07/18 Lipase/Protease/Amylase [John Figueroa 36,000 Units Capsule] 1 each PO AC 05/07/18 Metoprolol Succinate [Toprol Xl] 25 mg PO DAILY 05/07/18 Pregabalin [Lyrica] 100 mg PO BID 05/07/18 Amlodipine Besylate [Norvasc -] 10 mg PO DAILY 30 Days #30 tablet 05/08/18 Sodium Bicarbonate 325 mg PO BID 30 Days #60 tablet 05/22/18 Insulin Degludec [Tresiba Flextouch U-100] 20 unit SQ ASDIR 09/17/19 Lidocaine 5% Patch [Lidoderm Patch -] 1 patch TP DAILY PRN #30 patch 09/17/19 Oxycodone HCl/Acetaminophen [Percocet 10-325 mg Tablet] 1 each PO QID PRN #10 tablet MDD 4 09/17/19 Review of Systems - Review of Systems Able to Perform ROS?: Yes Constitutional: No: Chills, Fever HEENTM: No: Eye Pain, Recent change in vision, Nose Congestion, Throat Pain, Throat Swelling, Mouth Pain, Difficulty Swallowing Respiratory: No: Cough, Shortness of Breath Cardiac (ROS): Yes: Chest Pain. No: Lightheadedness, Palpitations, Syncope ABD/GI: No: Diarrhea, Vomiting Musculoskeletal: No: Back Pain Integumentary: No: Bruising, Change in Color, Flushing, Pallor, Rash Neurological: No: Headache, Numbness, Paresthesia, Weakness, Dizziness Hematologic/Lymphatic: No: Anemia All Other Systems: Reviewed and Negative <Cassia Estrada - Last Filed: 09/18/19 10:32> *Physical Exam - Vital Signs Last Vital Signs Temp Pulse Resp BP Pulse Ox 98 F 85 18 186/97 H 100 09/17/19 08:35 09/17/19 08:35 09/17/19 08:35 09/17/19 08:35 09/17/19 08:35 - Physical Exam 09/17/19 09:29 Triage VS reviewed Well appearing, NAD Reproducible chest pain w/palpation of sternum CV: S1, S2, RRR Lungs: CLTA B/L Abdomen: (+) bowel sounds, no TTP Extremity: 2+ DP pulses, no edema <Mervat Pizarro - Last Filed: 09/17/19 12:35> - Vital Signs Last Vital Signs Temp Pulse Resp BP Pulse Ox 97.3 F L 71 16 170/84 100 09/17/19 11:41 09/17/19 11:41 09/17/19 11:41 09/17/19 11:41 09/17/19 11:41 - Physical Exam General Appearance: Yes: Nourished, Appropriately Dressed HEENT: positive: EOMI, TRUNG, Normal ENT Inspection, Normal Voice, Symmetrical, Pharynx Normal Neck: positive: Trachea midline, Supple. negative: Tender Respiratory/Chest: positive: Chest Tender, Lungs Clear, Normal Breath Sounds. negative: Respiratory Distress, Accessory Muscle Use, Labored Respiration Cardiovascular: positive: Regular Rhythm, Regular Rate Gastrointestinal/Abdominal: positive: Soft. negative: Tender Musculoskeletal: positive: Normal Inspection. negative: CVA Tenderness Extremity: positive: Normal Capillary Refill, Normal Inspection, Normal Range of Motion, Pelvis Stable. negative: Tender Integumentary: positive: Normal Color, Dry, Warm Neurologic: positive: barrel washer machine II-XII NML intact, Alert, Normal Mood/Affect, Normal Response, Motor Strength 5/5 <Cassia Estrada - Last Filed: 09/18/19 10:32> Heart Score/ECG Review - ECG Impressions Comment:: 09/17/19 08:48 HR 78 78, LVH, no JEAN-PAUL/STD/TWI <Mervat Pizarro - Last Filed: 09/17/19 12:35> ED Treatment Course - Medications Given in the ED: ED Medications Discontinued Medications Generic Name Dose Route Start Last Admin Trade Name Freq PRN Reason Stop Dose Admin Lidocaine 1 patch 09/17/19 10:23 09/17/19 11:23 Lidoderm Patch - TP 09/17/19 10:24 1 patch ONCE ONE Administration Oxycodone HCl 10 mg 09/17/19 09:20 09/17/19 09:28 Roxicodone - PO 09/17/19 09:21 10 mg ONCE ONE Administration <Cassia Estrada - Last Filed: 09/18/19 10:32> Medical Decision Making - Medical Decision Making 09/17/19 09:15 73 y/o female s/p mechanical fall, landed on side, ambulatory post fall, no SiSx of pre-syncopal episode. Hypertensive 169/90's other VS unremarkable Reproducible sternal TTP Will obtain XR to r/o sternal and rib fractures. Pain control with Oxycodone (patient has CKD so will refrain from NSAID) Reassess. 09/17/19 10:26 Attending read of XR shows no sternal fracture, no rib fracture, as patient landed on side w/o any sternal trauma, pain is likely MSK. Repeat VSS Will discharge home with supportive care, return precautions. <Mervat Pizarro - Last Filed: 09/17/19 12:35> Discharge - Discharge Information Problems reviewed: Yes - Admission No <Mervat Pizarro - Last Filed: 09/17/19 12:35> <Cassia Estrada - Last Filed: 09/18/19 10:32> - Discharge Information Clinical Impression/Diagnosis: Pain of sternum, Anterior chest wall pain Condition: Improved Disposition: HOME - Additional Discharge Information Prescriptions: Lidocaine 5% Patch [Lidoderm Patch -] 1 patch TP DAILY PRN #30 patch PRN Reason: chest wall pain Oxycodone HCl/Acetaminophen [Percocet 10-325 mg Tablet] 1 each PO QID PRN #10 tablet MDD 4 PRN Reason: pain severe - Follow up/Referral Referrals: [facility] [place] [facility] [place] [Provider Group] [address] [Provider Group] - Patient Discharge Instructions Patient Printed Discharge Instructions: DI for Costochondritis, How to Prevent Falls, DI for Musculoskeletal Pain Additional Instructions: you most likely have chest wall pain from your recent fall there are no fractures or abnormalities or fluid seen on x ray. take percocet tablet as needed for severe pain - this has tylenol, do not take any more tylenol in addition. take this with food. this may cause drowsiness and sleepiness, make sure no operation of machinery or driving while taking this medication and you are adequately in safe environment with support measures to avoid further injuries no NSAIDS given your kidney issues/disease. lidoderm patch 12 hours on and 12 hours off as needed for myofascial pain. stay hydrated take nice deep breaths and perform deep breathing exercises to avoid atelectasis and respiratory failure/infection follow up with primary care doctor as outpatient. FALL PREVENTION AT HOME WHAT YOU NEED TO KNOW There are many different factors that can increase your risk of falls. Falls can happen any time, but the majority of them occur in the home. Fall prevention includes ways to make your home and other areas safer. It also includes ways you can move more carefully to prevent a fall. Health conditions that cause changes in your blood pressure, vision, or muscle strength and coordination may increase your risk for falls. Medicines, including anesthesia, may increase your risk for falls if they make you dizzy, weak, or sleepy. FALL PREVENTION TIPS Stand or sit up slowly. This may help you keep your balance and prevent falls. Do not walk and talk at the same time. Concentrate on the task of walking and continue the conversation after you've reached a safe place. Wear shoes that fit well and have soles that shoemaker custom. Wear shoes both inside and outside. Use slippers with good shoemaker custom. Avoid shoes with high heels. Use assistive devices as directed. Your healthcare provider may suggest that you use a cane or walker to help you keep you balance. Be sure you have adequate lighting throughout your house. Keep paths clear. Remove books, shoes and other objects from walkways and stairs. Keep cords for telephones and lamps out of the way so you dont need to walk over them. Remove small rugs or secure them with double-sided tape. This will prevent you from tripping. Use a nightlight when getting out of bed at night. Stay active to maintain overall strength and endurance. Know your limitations. If there is a task you can not complete with ease, do not risk a fall by trying to complete it. Call 911 or have someone else call if: You have fallen and are unconscious You have fallen and cannot move part of your body Contact your healthcare provider if: You have fallen and have pain or a headache You have questions or concerns about your condition or care.
[2019-09-17] MEDS ORDERED: oxyCODONE HCL 5 MG TABLET PO ONE (09:20)
[2019-09-17] MEDS ORDERED: oxyCODONE HCL 5 MG TABLET ONE (09:24)
--- NOTE | 2019-09-17 10:08 | PDOC ---
Documentation entered by Kerry Sainz SCRIBE, acting as scribe for Cassia Estrada MD. Cassia Estrada MD: This documentation has been prepared by the Alistair ocasio Nirvannie, SCRIBE, under my direction and personally reviewed by me in its entirety. I confirm that the documentation accurately reflects all work, treatment, procedures, and medical decision making performed by me. Attending Attestation - Resident Resident Name: Mervat Pizarro - ED Attending Attestation I have performed the following: I have examined & evaluated the patient, The case was reviewed & discussed with the resident, I agree w/resident's findings & plan, Exceptions are as noted - HPI HPI: 09/17/19 09:15 73 year old female with history of hypertension, diabetes, and chronic kidney disease, pancreatitis presenting after fall, c/o anterior chest /sternal pain. worse with movement and breathing. - Physicial Exam PE: 09/17/19 10:09 NAD, well appearing, EOMI, PERRL, nl conjunctiva, anicteric; neck supple. lungs clear, RRR, abdomen soft nontender. No rebound, no guarding. Back nontender. MAJOR x4, no focal neuro deficits. No peripheral edema. normal color for ethnicity , WWP. anterior chest wall TTP, no discoloration, no crepitus. 09/17/19 10:26 - Medical Decision Making 09/17/19 10:07 Vital Signs Temp Pulse Resp BP Pulse Ox 98 F 85 18 186/97 H 100 09/17/19 08:35 09/17/19 08:35 09/17/19 08:35 09/17/19 08:35 09/17/19 08:35 VS initially HTN, but also in pain, no tachy, normal respirations, saturations no fever. no systemic features, nontoxic appearing breathing comfortably, speaking full sentences. Differential diagnosis includes pneumothorax, rib fracture, sternal fracture, chest wall contusion, costochondritis. EKG is sinus rhythm without abnormalities. nonischemic doubt cardiac, no exertional component or typical features, reproducible and point tenderness noted. no skin changes or signs of trauma. Interpreted by ED Physician: CXR (2 view): no acute abnormality: no infiltrates , bones appear intact and structures normal alignment, cardiac silhouette within normal limits. no free air under diaphragm, no pneumothorax. Sternal x-ray was negative for fracture or displacement VS reviewed, wnl. normal sats on RA, no respiratory distress BP improved, HTN downtrending down 170s/71 - told to repeat with primary doctor. lungs clear +reproducible chest wall tenderness anteriorly. analgesia, with sig improvement lido patch low suspicion for retrosternal hematoma or cardiac contusion. most likely msk and chest wall tenderness noted without external signs of trauma across chest. supportive care, deep breathing exercises, most likely msk / costochondritis given mechanism. no fx/ or ptx or effusion/edema noted DC with adequate pain control, percocet low dose prn , lido patch prn. avoid nsaids given history of renal insufficiency. fall prevention discussed, safety measures. Pt to be discharged in stable condition. Patient and family made aware of clinical impression, treatment recommendations and disposition plan, return precautions discussed (including but not limited to new or persistent/worsening symptoms, pain, fevers, or signs of infection, chest pain, respiratory distress , inability to tolerate oral intake, dehydration, syncope, or neurologic changes ). Follow up with PMD as recommended, follow up information provided, take medications as instructed for duration of time. continue with supportive care, avoid triggers and precipitants. All questions answered to patient's satisfaction and expressed understanding and comfort with this. At the time of discharge, the patient is alert, clinically improved, tolerating po and verbalizes understanding of instructions, satisfied with the care received and felt comfortable with the plan. Patient does not suffer from an acute life- threatening medical condition at this time and is safe for outpatient follow- up. 09/17/19 11:31 09/18/19 10:27 Discharge - Discharge Information Problems reviewed: Yes Clinical Impression/Diagnosis: Pain of sternum, Anterior chest wall pain Condition: Improved Disposition: HOME - Admission No - Additional Discharge Information Prescriptions: Lidocaine 5% Patch [Lidoderm Patch -] 1 patch TP DAILY PRN #30 patch PRN Reason: chest wall pain Oxycodone HCl/Acetaminophen [Percocet 10-325 mg Tablet] 1 each PO QID PRN #10 tablet MDD 4 PRN Reason: pain severe - Follow up/Referral Referrals: [facility] [place] [facility] at [place] [Provider Group] [address] [Provider Group] - Patient Discharge Instructions Patient Printed Discharge Instructions: DI for Costochondritis, How to Prevent Falls, DI for Musculoskeletal Pain Additional Instructions: you most likely have chest wall pain from your recent fall there are no fractures or abnormalities or fluid seen on x ray. take percocet tablet as needed for severe pain - this has tylenol, do not take any more tylenol in addition. take this with food. this may cause drowsiness and sleepiness, make sure no operation of machinery or driving while taking this medication and you are adequately in safe environment with support measures to avoid further injuries no NSAIDS given your kidney issues/disease. lidoderm patch 12 hours on and 12 hours off as needed for myofascial pain. stay hydrated take nice deep breaths and perform deep breathing exercises to avoid atelectasis and respiratory failure/infection follow up with primary care doctor as outpatient. FALL PREVENTION AT HOME WHAT YOU NEED TO KNOW There are many different factors that can increase your risk of falls. Falls can happen any time, but the majority of them occur in the home. Fall prevention includes ways to make your home and other areas safer. It also includes ways you can move more carefully to prevent a fall. Health conditions that cause changes in your blood pressure, vision, or muscle strength and coordination may increase your risk for falls. Medicines, including anesthesia, may increase your risk for falls if they make you dizzy, weak, or sleepy. FALL PREVENTION TIPS Stand or sit up slowly. This may help you keep your balance and prevent falls. Do not walk and talk at the same time. Concentrate on the task of walking and continue the conversation after you've reached a safe place. Wear shoes that fit well and have soles that radial drill press set up operator. Wear shoes both inside and outside. Use slippers with good radial drill press set up operator. Avoid shoes with high heels. Use assistive devices as directed. Your healthcare provider may suggest that you use a cane or walker to help you keep you balance. Be sure you have adequate lighting throughout your house. Keep paths clear. Remove books, shoes and other objects from walkways and stairs. Keep cords for telephones and lamps out of the way so you dont need to walk over them. Remove small rugs or secure them with double-sided tape. This will prevent you from tripping. Use a nightlight when getting out of bed at night. Stay active to maintain overall strength and endurance. Know your limitations. If there is a task you can not complete with ease, do not risk a fall by trying to complete it. Call 911 or have someone else call if: You have fallen and are unconscious You have fallen and cannot move part of your body Contact your healthcare provider if: You have fallen and have pain or a headache You have questions or concerns about your condition or care. - Post Discharge Activity Heart Score/ECG Review #1 ECG reviewed & interpreted by me at: 08:30 General ECG Interpretation: Sinus Rhythm, Normal Rate, Normal Intervals, No acute ischemic changes Compared to previous ECG there are: No significant change 09/17/19 09:15 EKG normal sinus rhythm at 78 bpm, no interval abnormalities, narrow QRS, ST and T wave segments and morphology normal.
[2019-09-17] MEDS ORDERED: LIDOCAINE 5% TOPICAL PATCH TP ONE (10:23)
[2019-09-17] MEDS ORDERED: LIDOCAINE 5% TOPICAL PATCH ONE (11:25)
[2019-09-17 11:42] VITALS: BP 170/84; PULSE 71; TEMP 97.3
--- NOTE | 2019-09-17 12:25 | EKG ---
Test Reason : Blood Pressure : / mmHG Vent. Rate : 078 BPM Atrial Rate : 078 BPM P-R Int : 166 ms QRS Dur : 078 ms QT Int : 402 ms P-R-T Axes : 059 -18 032 degrees QTc Int : 458 ms NORMAL SINUS RHYTHM MODERATE VOLTAGE CRITERIA FOR LVH, MAY BE NORMAL VARIANT WHEN COMPARED WITH ECG OF 21-MAY-2018 08:50, NO SIGNIFICANT CHANGE WAS FOUND Confirmed by ANAHI PAUL MD ([id number]) on 09/17/2019 12:25:01 PM Referred By: Confirmed By:ANAHI PAUL MD
[2019-09-17] MEDS ORDERED: LIDOCAINE PATCH REMOVAL MC SCH (22:00)
== END 2019-09-17 11:42 | disposition home or self-care (01) ==
LOC: JER 08:26
DX: R07.89 Other chest pain (principal); I12.9 Hypertensive chronic kidney disease with stage 1 through stage 4 chronic kidney disease, or unspecified chronic kidney disease; E11.22 Type 2 diabetes mellitus with diabetic chronic kidney disease; N18.9 Chronic kidney disease, unspecified; Z79.4 Long term (current) use of insulin; E78.00 Pure hypercholesterolemia, unspecified; K86.9 Disease of pancreas, unspecified; D64.9 Anemia, unspecified; Z88.2 Allergy status to sulfonamides
CPT/HCPCS: 71046-TC-FY; 71120-TC-FY; 93005; 93010; 99284-25

== ENCOUNTER 2021-07-07 00:44 | Inpatient (IN) | payer OTHER ==
[2021-07-07] MEDS ORDERED: ALBUTEROL SO4 2.5/IPRATROPIUM 0.5 INH SOL 3 ML VIAL.NEB. NEB SCH (01:30)
[2021-07-07] MEDS ORDERED: SODIUM CHLORIDE 500 ML IV STA (01:37)
[2021-07-07 01:53] VITALS: BMI 21.9
[2021-07-07] MEDS ORDERED: SODIUM CHLORIDE 1,000 ML IV STA (01:54)
[2021-07-07 02:55] LABS: BASO % 0.8 % (0-2.0); EOS % 0.2 % (0-4.5); HEMATOCRIT 36.3 % (32.4-45.2); HEMOGLOBIN 11.9 GM/dL (10.7-15.3); LYMPH % 7.2 % (8-40); MCH 27.9 pg (25.7-33.7); MCHC 32.8 g/dl (32.0-36.0); MEAN CELL VOLUME 85.2 fl (80-96); MEAN PLT VOLUME 8.7 fl (7.5-11.1); MONO % 6.9 % (3.8-10.2); NEUT % 84.9 % (42.8-82.8); PLATELET COUNT 165 10^3/uL (134-434); RBC 4.25 M/mm3 (3.60-5.2); RDW 15.4 % (11.6-15.6); WHITE BLOOD COUNT 8.6 K/mm3 (4.0-10.0)
[2021-07-07 03:15] LABS: CHLORIDE 114 mmol/L (98-107); SODIUM 143 mmol/L (136-145)
[2021-07-07 03:19] LABS: ALBUMIN 3.6 g/dl (3.4-5.0); LIPASE 29 U/L (73-393)
[2021-07-07 03:20] LABS: ANION GAP 9 MMOL/L (8-16); BLOOD UREA NITROGEN 24.6 mg/dL (7-18); CO2 21 mmol/L (21-32); GLUCOSE,RANDOM 251 mg/dL (74-106)
[2021-07-07 03:22] LABS: CREATININE 2.5 mg/dL (0.55-1.3)
[2021-07-07 03:23] LABS: SGOT/AST 22 U/L (15-37); SGPT/ALT 37 U/L (13-61)
[2021-07-07 03:24] LABS: TOT PROT 7.6 g/dl (6.4-8.2)
[2021-07-07 03:25] LABS: ALK PHOS 246 U/L (45-117)
[2021-07-07] MEDS ORDERED: INSULIN REGULAR HUMAN 100 UNITS/ML *VIAL SQ ONE (03:35)
[2021-07-07 03:45] LABS: BILIRUBIN,TOTAL 0.5 mg/dL (0.2-1)
[2021-07-07] MEDS ORDERED: INSULIN REGULAR HUMAN 100 UNITS/ML *VIAL IVPUSH ONE (04:09)
[2021-07-07 08:16] LABS: EPI CELLS 4 /uL (0-25.1); HYALINE CASTS 0 /uL (0-3.1); PH,URINE 5.5 (5.0-8.0); URINE APPEARANCE CLEAR; URINE BACTERIA 10 /uL (0-1359); URINE BILIRUBIN NEGATIVE (NEGATIVE); URINE COLOR YELLOW; URINE GLUCOSE (UA) TRACE (NEGATIVE); URINE KETONE NEGATIVE (NEGATIVE); URINE LEUK ESTERASE NEGATIVE (NEGATIVE); URINE NITRITE NEGATIVE (NEGATIVE); URINE PROTEIN 2+ (NEGATIVE); URINE RBC 37 /uL (0-23.9); URINE UROBILINOGEN 0.2 mg/dL (0.2-1.0); URINE WBC 3 /uL (0-25.8)
[2021-07-07] MEDS ORDERED: ALBUTEROL SO4 0.083% IH SOL 2.5 MG/3 ML VIAL.NEB. NEB PRN (21:12)
[2021-07-07] MEDS ORDERED: PREGABALIN 100 MG CAPSULE ONE (21:49)
[2021-07-07] MEDS: PREGABALIN 100 MG CAPSULE PO SCH (21:56)
[2021-07-07] MEDS: INSULIN SLIDING SCALE (NOVOLOG) 1 VIAL SQ SCH (21:56)
[2021-07-07] MEDS: SODIUM BICARBONATE 325 MG TABLET PO SCH (21:57)
[2021-07-07 22:01] LABS: CALCIUM 8.4 mg/dL (8.5-10.1)
[2021-07-07 22:02] LABS: BLOOD UREA NITROGEN 20.4 mg/dL (7-18)
[2021-07-07 22:05] LABS: CREATININE 2.1 mg/dL (0.55-1.3)
[2021-07-08] MEDS: INSULIN SLIDING SCALE (NOVOLOG) 1 VIAL SQ SCH ×4 (06:23→21:41)
[2021-07-08] MEDS ORDERED: LIPASE/PROTEASE/AMYLASE 36,000 UNIT CAPSULE PO SCH (07:00)
[2021-07-08] MEDS ORDERED: PT OWN MED DRAWER 7, Y5N ONE ×3 (08:43→17:04)
[2021-07-08] MEDS: LIPASE/PROTEASE/AMYLASE 36,000 UNIT CAPSULE PO SCH ×3 (09:00→17:25)
[2021-07-08] MEDS: metoPROLOL SUCCINATE 25 MG TAB.SR.24H (FP) PO SCH (09:01)
[2021-07-08] MEDS: PREGABALIN 100 MG CAPSULE PO SCH ×2 (09:01→21:39)
[2021-07-08] MEDS: SODIUM BICARBONATE 325 MG TABLET PO SCH ×2 (09:01→21:39)
[2021-07-08 10:19] LABS: HEMATOCRIT 36.1 % (32.4-45.2); HEMOGLOBIN 11.7 GM/dL (10.7-15.3); MCHC 32.4 g/dl (32.0-36.0); MEAN CELL VOLUME 86.4 fl (80-96); MEAN PLT VOLUME 9.9 fl (7.5-11.1); PLATELET COUNT 143 10^3/uL (134-434); RBC 4.18 M/mm3 (3.60-5.2); RDW 15.7 % (11.6-15.6); WHITE BLOOD COUNT 7.8 K/mm3 (4.0-10.0)
[2021-07-08 10:54] LABS: ALBUMIN 3.3 g/dl (3.4-5.0); BLOOD UREA NITROGEN 20.9 mg/dL (7-18); CALCIUM 8.6 mg/dL (8.5-10.1)
[2021-07-08 10:57] LABS: CREATININE 2.2 mg/dL (0.55-1.3)
[2021-07-08 10:59] LABS: BILIRUBIN,TOTAL 0.4 mg/dL (0.2-1); TOT PROT 6.8 g/dl (6.4-8.2)
[2021-07-08 12:04] LABS: ANISOCYTOSIS 0; MACROCYTOSIS 0; PLATELET ESTIMATE NORMAL
[2021-07-08] MEDS ORDERED: ALBUTEROL SO4 0.083% IH SOL 2.5 MG/3 ML VIAL.NEB. NEB STA (22:07)
[2021-07-09] MEDS: INSULIN SLIDING SCALE (NOVOLOG) 1 VIAL SQ SCH ×4 (06:13→21:36)
[2021-07-09] MEDS ORDERED: PT OWN MED DRAWER 7, Y5N ONE ×3 (09:24→21:19)
[2021-07-09] MEDS: metoPROLOL SUCCINATE 25 MG TAB.SR.24H (FP) PO SCH (09:31)
[2021-07-09] MEDS: PREGABALIN 100 MG CAPSULE PO SCH ×2 (09:31→21:34)
[2021-07-09] MEDS: LIPASE/PROTEASE/AMYLASE 36,000 UNIT CAPSULE PO SCH ×3 (09:32→17:05)
[2021-07-09] MEDS: SODIUM BICARBONATE 325 MG TABLET PO SCH ×2 (09:32→21:34)
[2021-07-09] MEDS: ALBUTEROL SO4 2.5/IPRATROPIUM 0.5 INH SOL 3 ML VIAL.NEB. NEB SCH ×3 (11:35→20:23)
[2021-07-09] MEDS: predniSONE 20 MG TABLET (UD) PO SCH (11:42)
[2021-07-10 05:49] VITALS: BP 125/79; PULSE 84; TEMP 97.7
[2021-07-10] MEDS: INSULIN SLIDING SCALE (NOVOLOG) 1 VIAL SQ SCH ×2 (06:04→11:34)
[2021-07-10] MEDS: ALBUTEROL SO4 2.5/IPRATROPIUM 0.5 INH SOL 3 ML VIAL.NEB. NEB SCH ×2 (07:45→11:13)
[2021-07-10] MEDS ORDERED: PT OWN MED DRAWER 7, Y5N ONE ×3 (08:40→12:45)
[2021-07-10] MEDS: LIPASE/PROTEASE/AMYLASE 36,000 UNIT CAPSULE PO SCH ×2 (08:43→11:35)
[2021-07-10] MEDS: metoPROLOL SUCCINATE 25 MG TAB.SR.24H (FP) PO SCH (09:51)
[2021-07-10] MEDS: predniSONE 20 MG TABLET (UD) PO SCH (09:51)
[2021-07-10] MEDS: SODIUM BICARBONATE 325 MG TABLET PO SCH (09:51)
[2021-07-10] MEDS: PREGABALIN 100 MG CAPSULE PO SCH (09:51)
[2021-07-10] MEDS ORDERED: TIOTROPIUM BROMIDE 2.5 MCG (SPIRIVA) RESPIMAT INHALER IH SCH (10:00)
[2021-07-10] MEDS ORDERED: BUDESONIDE/FORMETEROL FUMARATE 160/4.5 mcg INHALER IH SCH (10:00)
== END 2021-07-10 14:30 | disposition home or self-care (01) | DRG 683 ==
LOC: JER 00:44 → JERBED 04:28 → J8W 22:34
PROVIDERS: ADMIT Family Medicine; ATTEND Family Medicine
DX: N17.9 Acute kidney failure, unspecified (principal); E87.0 Hyperosmolality and hypernatremia; K86.89 Other specified diseases of pancreas; E11.22 Type 2 diabetes mellitus with diabetic chronic kidney disease; I12.9 Hypertensive chronic kidney disease with stage 1 through stage 4 chronic kidney disease, or unspecified chronic kidney disease; E11.65 Type 2 diabetes mellitus with hyperglycemia; E78.5 Hyperlipidemia, unspecified; N18.9 Chronic kidney disease, unspecified; R11.2 Nausea with vomiting, unspecified; E87.5 Hyperkalemia; E86.0 Dehydration; R19.7 Diarrhea, unspecified; F17.210 Nicotine dependence, cigarettes, uncomplicated; I51.7 Cardiomegaly
CPT/HCPCS: 36415; 71045-TC-FY; 80048; 80053; 81003; 82550; 82962; 83690; 84484; 85025; 87045; 87046; 87086; 87177; 87209; 87324; 87449; 87804; 93005; 93010; 94640; 97116-GP; 97161-GP; 99285-25; C9803; U0003; U0005

== ENCOUNTER 2023-03-16 10:49 | Emergency (ER) | payer OTHER ==
[2023-03-16 10:54] VITALS: BMI 20.2
[2023-03-16] MEDS ORDERED: ACETAMINOPHEN 325 MG TABLET (FP) PO ONE (12:18)
[2023-03-16] MEDS ORDERED: IBUPROFEN 400 MG TABLET (FP) PO ONE ×2 (12:18→12:20)
[2023-03-16] MEDS ORDERED: ACETAMINOPHEN 325 MG TABLET (FP) ONE (12:20)
[2023-03-16 13:47] VITALS: BP 178/86; PULSE 87; RESP 19; TEMP 98.6
== END 2023-03-16 13:47 | disposition home or self-care (01) ==
LOC: JER 10:49 → JERFT 10:49
DX: M25.562 Pain in left knee (principal); R22.42 Localized swelling, mass and lump, left lower limb; M25.462 Effusion, left knee; W01.198A Fall on same level from slipping, tripping and stumbling with subsequent striking against other object, initial encounter
CPT/HCPCS: 73562-TC-LT-FY; 99283-25

== ENCOUNTER 2024-11-25 06:32 | Day surgery (SDC) | payer OTHER ==
[2024-11-22 11:03] VITALS: BMI 17.6
[2024-11-25] MEDS ORDERED: DEXTROSE 50%-WATER 25 GM/50 ML DISP.SYRIN ONE ×2 (08:21→12:03)
[2024-11-25] MEDS ORDERED: PROPOFOL 20 ML ONE ×2 (08:50→10:58)
[2024-11-25] MEDS ORDERED: MIDAZOLAM HCL 2 MG/2 ML SINGLE DOSE VIAL ONE ×2 (08:50→10:11)
[2024-11-25] MEDS ORDERED: NALOXONE HCL 0.4 MG/ML VIAL ONE (08:58)
[2024-11-25] MEDS ORDERED: NEOSTIGMINE METHYLSULFATE 0.5 MG/1 ML - 10 ML MDV ONE ×2 (09:02→10:30)
[2024-11-25] MEDS ORDERED: LIDOCAINE HCL 1%, 10 MG/ML (20ML VIAL) ONE (09:13)
[2024-11-25] MEDS: ceFAZolin 2 GRAM PREMIX BAG IVPB ONE ×3 (10:20→10:30)
[2024-11-25] MEDS ORDERED: ceFAZolin SODIUM 1 GM VIAL ONE (10:21)
[2024-11-25] MEDS ORDERED: DEXAMETHASONE SOD PHOSPHATE 4 MG/1 ML VIAL ONE (10:28)
[2024-11-25] MEDS ORDERED: ONDANSETRON 4 MG/2 ML VIAL ONE (10:28)
[2024-11-25] MEDS: LIDOCAINE HCL 1%, 10 MG/ML (20ML VIAL) INF ONE ×2 (10:30)
[2024-11-25] MEDS ORDERED: PHENYLEPHRINE HCL 10 MG/1 ML SINGLE DOSE VIAL ONE (10:40)
[2024-11-25] MEDS ORDERED: ONDANSETRON 4 MG/2 ML VIAL IVPUSH PRN (11:41)
[2024-11-25] MEDS ORDERED: PROMETHAZINE HCL 25 MG/1 ML VIAL IVPB PRN (11:41)
[2024-11-25] MEDS ORDERED: SODIUM CHLORIDE 1,000 ML IV SCH (11:45)
[2024-11-25] MEDS: DEXTROSE 50%-WATER 25 GM/50 ML DISP.SYRIN IVPUSH ONE (12:05)
[2024-11-25 13:18] VITALS: RESP 16
[2024-11-25 14:56] VITALS: BP 122/70; PULSE 88; TEMP 97.2
== END 2024-11-25 14:10 | disposition home or self-care (01) ==
LOC: JASU-SURG 06:32
PROVIDERS: ATTEND Surgery
PROC: 03180JD Bypass Left Brachial Artery to Upper Arm Vein with Synthetic Substitute, Open Approach (ICD-10-PCS; 2024-11-25)
PROC: 031809D Bypass Left Brachial Artery to Upper Arm Vein with Autologous Venous Tissue, Open Approach (ICD-10-PCS; principal; 2024-11-25 10:00)
DX: I12.0 Hypertensive chronic kidney disease with stage 5 chronic kidney disease or end stage renal disease (principal); N18.5 Chronic kidney disease, stage 5; E11.22 Type 2 diabetes mellitus with diabetic chronic kidney disease; E78.5 Hyperlipidemia, unspecified
CPT/HCPCS: 82962; 94760